=== PATIENT | male | born 1955 | race Caucasian/White ===

== ENCOUNTER → 2020-02-02 13:18 | Outpatient (CLI) | payer MEDICARE, SELFPAY ==
[2020-02-02 14:56] LABS: Chol/HDL Ratio 4.6 (1-3.5); Cholesterol 233 mg/dl (140-200); HDL Cholesterol 51 mg/dl (40-60); Triglycerides 322 mg/dl (30-150); VLDL Cholesterol 64 mg/dL (0-40)
[2020-02-02 15:07] LABS: Direct LDL Cholesterol 134.67 mg/dL (100-129)
== END ==
PROVIDERS: Visit Provider Family Medicine
DX: I25.10 Atherosclerotic heart disease of native coronary artery without angina pectoris (principal); Z98.61 Coronary angioplasty status
CPT/HCPCS: 80061

== ENCOUNTER → 2020-06-07 18:46 | Outpatient (CLI) | payer MEDICARE, SELFPAY ==
[2020-06-07 19:05] LABS: Basophils # 0.1 K/mm3 (0-0.2); Basophils % 0.8 % (0.1-2.0); Eosinophils # 0.2 K/mm3 (0.0-0.4); Eosinophils % 2.6 % (0.1-12.0); Hematocrit 42.6 % (42.0-52.0); Hemoglobin 13.5 g/dL (14.1-18.0); Lymphocytes % 23.5 % (10-50); Mean Corpuscular HGB Conc 31.7 g/dL (31.8-35.4); Mean Corpuscular Hemoglobin 28.7 pg (27.0-31.2); Mean Corpuscular Volume 90.4 fl (80-94); Mean Platelet Volume 9.2 fl (7.4-10.4); Monocytes # 0.6 K/mm3 (0.1-1.0); Monocytes % 7.2 % (1.7-9.3); Neutrophils # 5.6 K/mm3 (1.8-7.8); Neutrophils % 65.9 % (37.0-80.0); Platelet Count 217 K/mm3 (142-424); Red Blood Count 4.71 M/mm3 (4.60-6.20); Red Cell Distribution Width 14.4 % (11.5-17.5); White Blood Count 8.4 K/mm3 (4.8-10.8)
[2020-06-07 19:19] LABS: Alanine Aminotransferase 58 U/L (12-78); Albumin Level 4.4 g/dl (3.5-5.0); Albumin/Globulin Ratio 1.3 (1.1-1.8); Alkaline Phosphatase 74 U/L (38-126); Anion Gap 13.2 mEq/L (5-15); Aspartate Amino Transferase 61 U/L (17-59); Bilirubin,Total 0.6 mg/dl (0.2-1.3); Blood Urea Nitrogen 8 mg/dl (9-20); Calcium 9.9 mg/dl (8.4-10.2); Carbon Dioxide 29 mmol/L (22.0-30.0); Chloride 101 mmol/L (98-107); Estimated Glomerular Filt Rate 113 ml/min (>60); GFR (African American) 137 ML/MIN (>60); Globulin 3.4 g/dL (1.3-3.2); Glucose 219 mg/dl (74-100); Lipase 237 U/L (23-300); Potassium 4.2 mmoL/L (3.5-5.1); Sodium 139 mmol/L (136-145); Total Protein,Serum 7.8 g/dl (6.3-8.2)
[2020-06-07 19:24] LABS: Hemoglobin A1C 7.9 % (4.0-6.0)
== END ==
PROVIDERS: Visit Provider Family Medicine
DX: R10.30 Lower abdominal pain, unspecified (principal); E11.9 Type 2 diabetes mellitus without complications; Z79.84 Long term (current) use of oral hypoglycemic drugs
CPT/HCPCS: 80053; 83036; 83690; 85025

== ENCOUNTER → 2020-06-20 14:36 | Outpatient (CLI) | payer MEDICARE, SELFPAY ==
--- NOTE | 2020-06-20 14:36 | CT_ITS ---
PROCEDURE: CT ABDOMEN PELVIS WO CON CLINICAL INDICATION: Abd pain around belly button for about 3 weeks diarrhea Hx of hernia Bladder and colon sx COMPARISON: No exams were available for comparison TECHNIQUE: Axial images obtained with sagittal and coronal reformats. All CT scans at the facility use one or more dose reduction, viz: automated exposure control, ma/kV adjustment per patient size (including targeted exams where dose is matched to indication, i.e. head), or iterative reconstruction technique. FINDINGS: LOWER THORAX: There is some atelectatic or fibrotic changes in the lingula. Coronary artery calcifications and/or stents are noted. ABDOMEN & PELVIS: There is mild hepatomegaly. A 2.9 cm area slight increased density is present within the right hepatic lobe just to the right of a 2 cm hepatic cyst. The hyperdensity is superior to the gallbladder fossa. The spleen, adrenal glands, and pancreas have an unremarkable appearance. No renal or ureteral calculi. No evidence of appendicitis. No intestinal obstruction or free air. There is colonic diverticulosis but no evidence of diverticulitis. Fecal stasis. Postsurgical changes are present involving the anterior abdominal wall at the umbilical region There are degenerative changes of the lumbar spine and hips with prominent bony hypertrophy at the acetabular rims laterally on both sides IMPRESSION: 1. No acute finding. 2. Mild hepatomegaly with questionable 2.9 cm hyperdense lesion of the liver just lateral to a 2 cm liver cyst. Repeat exam with hemangioma protocol without and with contrast or MRI with hemangioma protocol may further characterize. 3. Diastasis of the abdominal wall at the umbilical region consistent with postsurgical changes. 4. Colonic diverticulosis but no evidence of diverticulitis. There is a mild amount of retained colonic feces. Dictated by: Goldy Cha MD 06/21/2020 14:04 Goldy Cha MD in [place] 06/21/2020 14:04
== END ==
PROVIDERS: PCP Family Medicine; Visit Provider Family Medicine
DX: R10.30 Lower abdominal pain, unspecified (principal)
CPT/HCPCS: 74176

== ENCOUNTER → 2020-07-01 10:29 | Outpatient (CLI) | payer MEDICARE, SELFPAY ==
[2020-07-01 11:19] LABS: Chloride 103 mmol/L (98-107); Sodium 140 mmol/L (136-145)
[2020-07-01 11:20] LABS: Potassium 4.9 mmoL/L (3.5-5.1)
[2020-07-01 11:23] LABS: Anion Gap 14.9 mEq/L (5-15); Blood Urea Nitrogen 13 mg/dl (9-20); Calcium 10.4 mg/dl (8.4-10.2); Carbon Dioxide 27 mmol/L (22.0-30.0); Estimated Glomerular Filt Rate 97 ml/min (>60); GFR (African American) 117 ML/MIN (>60); Glucose 199 mg/dl (74-100)
== END ==
PROVIDERS: Visit Provider Family Medicine
DX: Z01.818 Encounter for other preprocedural examination (principal)
CPT/HCPCS: 36415; 80048

== ENCOUNTER → 2020-07-03 09:49 | Outpatient (CLI) | payer MEDICARE, SELFPAY ==
--- NOTE | 2020-07-03 09:49 | CT_ITS ---
PROCEDURE: CT ABDOMEN WO/W CON CLINICAL HISTORY: hemangioma protocol Follow-up liver lesion COMPARISON: CT CT ABDOMEN PELVIS WO CON from 06/20/2020 TECHNIQUE: Axial images obtained with sagittal and coronal reformats. All CT scans at the facility use one or more dose reduction, viz: automated exposure control, ma/kV adjustment per patient size (including targeted exams where dose is matched to indication, i.e. head), or iterative reconstruction technique. FINDINGS: Unenhanced images once again demonstrates a 3 cm area of increased density in the right hepatic lobe adjacent to the gallbladder fossa. Does not demonstrate any contrast enhancement. Is similar but smaller area of increased density is present in the right hepatic lobe more inferiorly adjacent to the gallbladder fossa. Incidentally noted is a 4 mm hypodensity in the left hepatic lobe which may be due to a hepatic cysts with an additional cystic lesion in the left hepatic lobe at the gallbladder fossa at 2 cm and the right hepatic lobe anteriorly at 4 mm. The gallbladder is distended. A 4 mm hyperdensity is present along the posterior aspect of the gallbladder and could be due to small stone. There is a small exophytic left renal cyst at 1.6 cm. Degenerative changes are present in the lumbar spine IMPRESSION: 1. No change in the hyperdensity in the right hepatic lobe possibly due to focal fatty sparing. This does not appear to represent a hemangioma or an enhancing lesion. Consider six-month follow-up without contrast to confirm stability. 2. Hepatic cysts and left renal cysts 3. Distended gallbladder with possible gallstone Dictated by: Goldy Cha MD 07/04/2020 12:24 Goldy Cha MD in [facility] 07/04/2020 12:24
== END ==
PROVIDERS: PCP Family Medicine; Visit Provider Family Medicine
DX: K76.9 Liver disease, unspecified (principal)
CPT/HCPCS: 74170; Q9967

== ENCOUNTER → 2020-07-17 14:11 | Outpatient (CLI) | payer MEDICARE, SELFPAY ==
[2020-07-17 15:11] LABS: Alanine Aminotransferase 59 U/L (12-78); Albumin Level 4.9 g/dl (3.5-5.0); Alkaline Phosphatase 85 U/L (38-126); Aspartate Amino Transferase 59 U/L (17-59); Bilirubin,Indirect 0.6 mg/dL (0.0-0.9); Bilirubin,Total 0.6 mg/dl (0.2-1.3); Bilirubin,Unconjugated 0.6 mg/dL (0.0-1.1); Total Protein,Serum 8.3 g/dl (6.3-8.2)
== END ==
PROVIDERS: Visit Provider Surgery
DX: K82.9 Disease of gallbladder, unspecified (principal)
CPT/HCPCS: 36415; 80076

== ENCOUNTER → 2020-07-23 07:27 | Outpatient (CLI) | payer MEDICARE, SELFPAY ==
--- NOTE | 2020-07-23 07:28 | US_ITS ---
PROCEDURE: US GALLBLADDER CLINICAL INDICATION: RUQ pain COMPARISON: No exams were available for comparison FINDINGS: Limited study due to patient's body habitus. Pancreas: The visualized pancreas is unremarkable. The tail is partially obscured. Liver: Diffuse fatty infiltration of the liver is noted. There are focal anechoic lesions noted in the liver measuring 2 centimeters. There is focal ill-defined hypoechogenicity noted adjacent to the gallbladder fossa, expected location for focal fatty sparing. There is appropriate direction of blood flow within a non dilated portal vein. Right kidney: Unremarkable appearing. No hydronephrosis. Gallbladder: Gallbladder distension is noted. Significant amount of sludge is noted within the gallbladder. There is a possible calculus noted in the dependent portion of the gallbladder. The gallbladder wall is within normal limits measuring 0.3 centimeters. No pericholecystic fluid. The CBD measures 0.4 centimeters. No intrahepatic ductal dilation. IMPRESSION: Limited study due to patient's body habitus. Distended gallbladder with sludge and possible calculus. No evidence of significant gallbladder wall thickening or pericholecystic fluid to suggest acute cholecystitis. If high clinical suspicion of cholecystitis, HIDA scan should be considered for further evaluation. Hepatic steatosis. Hepatic cysts measuring up to 2 centimeters. Dictated by: Suri Nguyễn 07/23/2020 13:01 Suri Nguyễn in [facility] 07/23/2020 13:01
== END ==
PROVIDERS: PCP Family Medicine; Visit Provider Surgery
DX: R10.11 Right upper quadrant pain (principal)
CPT/HCPCS: 76705

== ENCOUNTER → 2020-10-14 13:39 | Outpatient (POV) | payer MEDICARE, SELFPAY | PROVIDERS: Visit Provider Nurse Practitioner Family | DX: Z00.00 Encounter for general adult medical examination without abnormal findings (principal) ==

== ENCOUNTER → 2021-06-13 16:00 | Outpatient (CLI) | payer MEDICARE, SELFPAY ==
[2021-06-13 13:39] LABS: Hemoglobin A1C 9.7 % (4.0-6.0)
[2021-06-13 14:06] LABS: Thyroid Stimulating Hormone 0.17 uIU/mL (0.465-4.68)
== END ==
PROVIDERS: Visit Provider Family Medicine
DX: E03.9 Hypothyroidism, unspecified (principal); E11.59 Type 2 diabetes mellitus with other circulatory complications; Z79.84 Long term (current) use of oral hypoglycemic drugs
CPT/HCPCS: 83036; 84443

== ENCOUNTER → 2022-07-13 23:16 | Outpatient (CLI) | payer MEDICARE, SELFPAY ==
[2022-07-13 18:18] LABS: Chloride 99 mmol/L (98-107); Potassium 4.7 mmoL/L (3.5-5.1); Sodium 137 mmol/L (136-145)
[2022-07-13 18:20] LABS: Alanine Aminotransferase 51 U/L (12-78); Aspartate Amino Transferase 62 U/L (17-59); Blood Urea Nitrogen 14 mg/dl (9-20); Estimated Glomerular Filt Rate 75 ml/min (>60); GFR (African American) 90 ML/MIN (>60)
[2022-07-13 18:21] LABS: Albumin Level 5.1 g/dl (3.5-5.0); Albumin/Globulin Ratio 1.3 (1.1-1.8); Alkaline Phosphatase 86 U/L (38-126); Anion Gap 19.7 mEq/L (5-15); Bilirubin,Total 1.2 mg/dl (0.2-1.3); Calcium 9.6 mg/dl (8.4-10.2); Carbon Dioxide 23 mmol/L (22.0-30.0); Glucose 139 mg/dl (74-100); Total Protein,Serum 9.1 g/dl (6.3-8.2)
[2022-07-13 18:24] LABS: Basophils # 0.1 K/mm3 (0-0.2); Basophils % 1.1 % (0.1-2.0); Eosinophils # 0.3 K/mm3 (0.0-0.4); Eosinophils % 2.6 % (0.1-12.0); Hematocrit 51.1 % (42.0-52.0); Hemoglobin 16.5 g/dL (14.1-18.0); Lymphocytes # 2.8 K/mm3 (0.7-4.5); Lymphocytes % 25.9 % (10-50); Mean Corpuscular HGB Conc 32.3 g/dL (31.8-35.4); Mean Corpuscular Hemoglobin 29.3 pg (27.0-31.2); Mean Corpuscular Volume 90.8 fl (80-94); Mean Platelet Volume 9.2 fl (7.4-10.4); Monocytes # 0.7 K/mm3 (0.1-1.0); Monocytes % 6.8 % (1.7-9.3); Neutrophils % 63.6 % (37.0-80.0); Platelet Count 297 K/mm3 (142-424); Red Blood Count 5.63 M/mm3 (4.60-6.20); Red Cell Distribution Width 14.6 % (11.5-17.5)
== END ==
PROVIDERS: PCP Nurse Practitioner Family; Visit Provider Nurse Practitioner Family
DX: R10.9 Unspecified abdominal pain (principal)
CPT/HCPCS: 80053; 85025; 87086

== ENCOUNTER → 2022-07-14 10:33 | Outpatient (CLI) | payer MEDICARE, SELFPAY ==
--- NOTE | 2022-07-14 10:41 | CT_ITS ---
FINAL REPORT TECHNIQUE: Axial images through the abdomen and pelvis were performed without contrast. This study was performed with techniques to keep radiation doses as low as reasonably achievable, (ALARA). Individualized dose reduction techniques using automated exposure control or adjustment of mA and/or kV according to the patient's size were employed. CLINICAL HISTORY: abdominal pain COMPARISON: May 2020 FINDINGS: ABDOMEN: There is scarring in the lung bases. The heart size is normal. The liver has a nodular peripheral margin consistent with cirrhosis. There is marked distension of the gallbladder. There are densities in the dependent portion of the gallbladder that may represent small gallstones. The spleen is not significantly enlarged. No adrenal mass is identified. The aorta is normal in caliber. There is no significant free fluid or adenopathy. There is no nephrolithiasis. There is no hydronephrosis. There is mild perinephric stranding that is probably postinflammatory. There is extensive descending colon diverticulosis. There is no evidence of diverticulitis. PELVIS: The appendix is not identified. The urinary bladder is unremarkable. There is no significant free fluid or adenopathy. IMPRESSION: Cirrhosis. Markedly distended gallbladder with gallstones. In the appropriate clinical setting acute cholecystitis cannot be excluded. Reviewed, Interpreted and Dictated by Yair Wilder MD Transcribed by Elfego Borrero Authenticated and . [facility]
== END ==
PROVIDERS: PCP Family Medicine; Visit Provider Nurse Practitioner Family
DX: R10.9 Unspecified abdominal pain (principal)
CPT/HCPCS: 74176

== ENCOUNTER → 2022-07-15 15:09 | Outpatient (CLI) | payer MEDICARE, SELFPAY ==
[2022-07-15 15:54] LABS: INR 1.03 (0.9-1.1); Prothrombin Time 11.1 seconds (10.1-12.5)
[2022-07-15 16:25] LABS: Amylase 80 U/L (30-110); Lipase 237 U/L (23-300)
== END ==
PROVIDERS: PCP Family Medicine; Visit Provider Surgery
DX: R10.9 Unspecified abdominal pain (principal); I25.10 Atherosclerotic heart disease of native coronary artery without angina pectoris; Z98.61 Coronary angioplasty status
CPT/HCPCS: 36415; 82150; 83690; 85610

== ENCOUNTER → 2022-07-16 06:08 | Outpatient (CLI) | payer MEDICARE, SELFPAY ==
--- NOTE | 2022-07-16 | CA_ITS ---
APPROVED REPORT Exam: Pharmacologic Technologist: Jossy Carrera, Ht: 6 ft 0 in Wt: 277 lbs BSA: 2.45 m2 HR: 84 bpm BP: 109/70 mmHg Rhythm: artial rhythm with variable rate Medical History Medical History: Diabetes, HTN, Hyperlipidemia Medications: Lisinopril,,,,, Pravastatin,,,,, Metformin,,,,, Synthroid,,,,, Zetia,,,,, CloPIdogrel,,,,, PaXIL,,,,, JaRDiance,,,,, Metronidazole,,,,, Lancets,,,,, Blood GLUCOSE,,,,, NitrogGLYCERIN,,,,, Cardiac Risk Factors: HTN, Hyperlipidemia, Diabetes (non-insulin) Stress Test Details Test: LEXISCAN HR Resting HR: 69 bpm Max Heart Rate (APMHR): 153.049628 bpm Max HR Achieved: 94 bpm Target HR (85% APMHR): 130.318207 bpm % of APMHR: 61.44 Recovery HR: 79 bpm BP Resting BP: 109/70 mmHg Max BP: 116/67 mmHg Recovery BP: 116.0/67.0 mmHg ECG Resting ECG: artial rhythm with variable rate Clinical Exercise duration: 04:00 min Highest Stage Achieved: Exercise capacity: 1.0 METs Stress ECG Conclusion During lexiscan pt experinced mild RIOS, no CP noted. Rare PVC noted. No significant ST changes. Undetermined artial rhythm, otherwise unremarkable lexiscan stress. Myoview images reported separately. Test Summary REST . . . . . . . Sitting REST 04:57 . . 69 . 109/ 70 . . Stage 1 01:00 . . 87 . . . . Stage 2 01:00 . . 78 . 96/ 57 . . Stage 3 01:00 . . 81 . 107/ 61 . . Stage 4 01:00 . . 87 . 112/ 61 . Stop exercise at 04:00 RECOVERY 01:00 . . 90 . . . . RECOVERY 02:00 . . 88 . 116/ 67 . . RECOVERY 03:00 . . 84 . 112/ 62 . . RECOVERY 03:30 . . 87 . 112/ 62 . . Electronically signed by : Jameson Chin MD 07/17/2022 10:20:07
--- NOTE | 2022-07-16 | CA_ITS ---
APPROVED REPORT EXAM: Comprehensive 2D, Doppler, and color-flow Echocardiogram Infrastructure Analyst: Gali Genao, RCS, RVS Ht: 6 ft 0 in Wt: 277lbs BSA: 2.45 BP: 111/72 mmHg Indications: CAD, Pre-op 2D Dimensions IVSd 0.94 cm LVEF (Visual) 55.00 % PWd 1.03 cm LA Volume 63.60 mL LVDd 4.51 cm LA Volume Index 25.30 mL/m2 (M/F) 16-34 LVDs 3.50 cm Aortic Root 3.76 cm Left Atrium 4.40 cm LVOT 2.21 cm (M/F) 1.5-2.5 M-Mode Dimensions RVDd 3.39 cm (0.9-2.6) LA Diam 4.85 cm (1.9-4.0) LVDd 4.50 cm (3.5-5.7) Ao Diam 3.67 cm (2.0-3.7) LVDs 2.54 cm (3.5-5.7) IVSd 0.85 cm (0.6-1.1) PWd 0.94 cm (0.6-1.1) EF (Teich) 74.90% EPSs 0.45 cm FS 43.60% EDV (Teich) 92.40 mL TAPSE 2.10 (<1.7) ESV (Teich) 23.20 mL LV Diastology E Decel Time 230.00 (160-240 msec) E/A Ratio 1.23 MED E' 6.20 (< 7 cm/sec) MED A' 6.90 cm/s E'/MED E' Ratio 10.65 (>14) LAT E' 8.10 (<10 cm/sec) LAT A' 8.60 cm/s E/LAT E' Ratio 8.15 (>14) Aortic Valve LVOT Max 80.00 (70-110 cm/s) LVOT VTI 18.96 cm AoV Peak Joshua. 91.00 (50-130 cm/s) AO Peak GR. 3.30 mmHg AO Mean GR. 1.60 (<5 mmHg) AO VTI 18.01 (18-25 cm) JD (VTI) 4.04 (2.5-4.5 cm2) Mitral Valve MV A Velocity 54.00 (40-130 cm/s) E/A Ratio 1.23 MV Decel. Time 230.00 (160-240 ms) Pulmonary Valve PV Peak Velocity 87.00 (50-150 cm/s) Tricuspid Valve TR P. Velocity 259.00 cm/s RAP Estimate 10.00 mmHg RVSP 36.80 mmHg Left Ventricle Left atrium is mildly enlarged, left ventricle is normal size mild concentric left ventricular hypertrophy, estimated ejection fraction 55% with no regional wall motion abnormality, grade 1 diastolic dysfunction seen without tissue Doppler evidence of late left atrial pressure. Right Ventricle Right atrium and right ventricular mildly enlarged with normal contractility. Aortic Valve Aortic valve is minimally thickened and fibrosed there is no aortic stenosis or aortic insufficiency. Mitral Valve Mitral valve has mitral valve calcification, leaflets are minimally thickened, there is no mitral stenosis, there is trace mitral regurgitation. Tricuspid Valve Tricuspid valve grossly normal, there is trace tricuspid regurgitation, tricuspid regurgitation jet velocity is inadequate for calculation of the right ventricular systolic pressure. Pulmonic Valve Pulmonic valve is poorly visualized. Great Vessels Aortic root is normal size. Pericardium No significant pericardial effusion noted. Inferior vena cava is poorly visualized. Conclusion 1. Mildly enlarged left atrium, normal left ventricular size, mild concentric left ventricular hypertrophy, estimated ejection fraction 55% with no regional wall motion abnormality, grade 1 diastolic dysfunction seen without tissue Doppler evidence of late left atrial pressure. 2. Mildly enlarged right ventricle with normal contractility. 3. Trace mitral and tricuspid regurgitation. 4. No significant pericardial effusion noted. 5. Inferior vena cava is poorly visualized. Electronically signed by : Jameson Chin MD 07/17/2022 17:06:04
--- NOTE | 2022-07-16 06:58 | NM_ITS ---
APPROVED REPORT Exam: Nuclear Stress Test Indication: CAD..PRE-OP CLEARANCE Patient Location: Outpatient Stress Tech: Jossy PITTS Tech:Iliana Castillo JULIANNE RT(R)(N) Ht: 6 ft 0 in Wt: 279 lbs HR: 69 bpm BP: 109/70 mmHg BSA: 2.45 m2 TID: 1.20 History: CAD..PRE-OP CLEARANCE Procedure: Patient received 0.4 mg of intravenous Lexiscan, resting heart rate 69 bpm, resting blood pressure 109/70 mmHg, with Lexiscan maximum heart rate achieved was 94 bpm which is Less than 85 % of the maximum predicted heart rate and blood pressure was 116/67 mmHg. With Lexiscan, patient denied any complaint of chest pain. Electrocardiogram Resting electrocardiogram shows atrial rhythm, with Lexiscan there is less than 1.[address] segment depression noted from the baseline EKG. The EKG portion of the Lexiscan is nondiagnostic. Cardiac Stress and Resting SPECT Images: Cardiac Stress and Resting SPECT images were obtained using technetium 99m Myoview 30.41 mCi stress and 10.22 mCi at rest. Gated SPECT analysis of segmental wall motion and calculation of the ejection fraction also done. Prone images were also obtained. Cardiac stress and rest respectively show uniform myocardial activity without segmental perfusion abnormality, computer derived ejection fraction is 61% with no regional wall motion abnormality, right ventricle is normal size and contractility. Conclusion: 1. The EKG portion of the Lexiscan is nondiagnostic. 2. No scintigraphic evidence of reversible ischemia seen, computer derived ejection fraction is 61% with no regional wall motion abnormality, right ventricle is normal size and contractility. 3. Normal Lexiscan Myoview study. Electronically signed by : Jameson Chin MD 07/17/2022 10:25:48
== END ==
LOC: RAD 06:09
PROVIDERS: PCP Family Medicine; Visit Provider Physician Assistant
DX: I25.10 Atherosclerotic heart disease of native coronary artery without angina pectoris (principal)
CPT/HCPCS: 78452; 93017; 93306; A9502; J2785

== ENCOUNTER 2022-07-20 06:01 | Day surgery (SDC) | payer MEDICARE, SELFPAY ==
--- NOTE | 2022-07-16 16:31 | SUR.PREOP ---
Attempted to contact pt for pre op phone call. No answer, message left w/ call back #.
[2022-07-16 16:50] VITALS: BMI 37.8
[2022-07-20] VITALS (12 sets, daily range): BP systolic 103–148; BP diastolic 51–83; PULSE 88–106; RESP 12–18; TEMP 36.3–43; O2SAT 93–98
[2022-07-20 09:40] LABS: POC Glucose,Bedside 137 (70-110)
--- NOTE | 2022-07-20 10:04 | P.PN_ITS ---
[facility] Disclaimer: The information contained in this section may have been updated after the patient was seen, as this information can be updated by other users. Medical History Abnormal electrocardiogram [ECG] [EKG] Coronary arteriosclerosis after percutaneous transluminal coronary angioplasty (PTCA) stents deployed x 5 Dr Page Encounter for pre-operative cardiovascular clearance Surgical History H/O colonoscopy H/O heart artery stent H/O partial resection of colon H/O total thyroidectomy History of partial colectomy Hx of cardiac cath Family History Other Family history of myocardial infarction in first degree male relative Social History (Updated 07/20/22 @ 09:23 by Marilee Conn RN) Smoking Status: Former smoker years smoked: 30 how long ago did patient quit smoking: QUIT 20 YEARS AGO alcohol intake: current substance use type: denies use current occupational status: retired Travel in the last 8 weeks: None caffeine: Yes [facility] Anesthesia Checklist Patient Identification Patient Identification: Arm Band and Verbal (Name & ) Structural Data Admitted From: Home Planned Operative Procedure/s: Laparascopic Cholecystectomy Consent for Planned Operative Procedure(s) Verified: Yes Verified Documents: Surgical Consent NPO Status Verified Time NPO: 00:00 Chart Verification Results Verified: CBC and BMP Additional verifications Anesthesia Reactions: No Hx Blood Transfusions: No Blood Transfusion Reaction: No Airway Assessment C-Spine Mobility Assessed: Yes TMJ Mobility Assessed: Yes Dentition: Partials Anesthesia Plan ASA Class: III Anesthesia Type: General
--- NOTE | 2022-07-20 12:55 | P.PNANES_ITS ---
[facility] Anesthesia Record Part I Anesthesia Record I Intake, IV Amount: 1,600 Estimated blood loss (mL): 50 Urine output (mL): 0 Blood Pressure: 103/51 SaO2: 95 Pulse Rate: 106 Respiratory Rate: 14 Temperature: 98.9 F Patient is:: Drowsy, Oral/Nasal airway and Stable Stable to PACU at:: 12:55
--- NOTE | 2022-07-20 12:56 | P.OP_ITS ---
Date of procedure: 07/20/22 Pre-op Diagnosis:: Symptomatic gallstones Post-op Diagnosis:: Same Cirrhosis of liver Procedure performed:: Laparoscopic cholecystectomy Laparoscopic liver biopsy Surgeon:: Paul Mejia MD Anesthesia: ARIANA Estimated blood loss (mL): 75 Operative findings:: He had significant cirrhosis of the liver. Gallbladder was distended without thickening of the wall. Gallbladder was partially intrahepatic. There were multiple branching veins around the gallbladder. Operative note:: Patient was taken the operating room. He was given preoperative intravenous antibiotics. In the operating room he was placed in a supine position. General anesthesia was induced via endotracheal tube. Abdomen was prepped and draped in the standard surgical fashion. Due to the fact that the patient had previous left paramedian laparotomy for his diverticulitis 5 mm optical trocar was inserted carefully in the left subcostal region. CO2 pneumoperitoneum was achieved to 15 mmHg. There were omental adhesions in the lower abdomen inferior to the umbilicus. Supraumbilical incision was made. 11 mm trocar was inserted at the supraumbilical incision. Patient was positioned in reverse Trendelenburg and left side down. He was noted to have significant cirrhosis of the liver. Gallbladder was somewhat distended. It did not however appear to be thickened. A couple of 5 mm trocars were inserted in the right upper abdomen. 11 mm trocar was inserted in the epigastrium. Gallbladder was partially aspirated using the laparoscopic needle aspirator as it was somewhat distended and tense. Gallbladder was then grasped retracted anteriorly. There were multiple branching vessels overlying the gallbladder and adjacent to this. Gallbladder was actually somewhat friable. There was some unavoidable spillage of bile with retraction. Ultimately rent in the gallbladder was closed with a 0 PDS suture. Very prolonged dissection was carried out. This was rather difficult due to the severe cirrhosis. Ultimately the cystic duct was identified. It was multiply clipped and sharply divided. Cystic artery was carefully coagulated with GEMMA ultrasonic harmonic kendall and divided. Some of these branching vessels were divided as they were adherent to the gallbladder. Gallbladder was dissected free from the liver in a retrograde fashion using GEMMA ultrasonic harmonic kendall. Gallbladder was appreciably partially intrahepatic which made the dissection process rather difficult. Gallbladder was placed within an Endo Catch retrieval device and removed from the peritoneal cavity via the umbilical trocar site. A small piece of liver was then excised overlying the gallbladder fossa using GEMMA ultrasonic harmonic kendall. It was sent off as liver biopsy. Electrocautery was then used for hemostasis on the gallbladder fossa where there was some minor oozing and at the liver biopsy site. Powdered Surgicel was then deployed in the gallbladder fossa to assure hemostasis. This was done after thorough irrigation and suctioning. There appeared to be good hemostasis. Trocars were then removed as CO2 pneumoperitoneum was evacuated. Fascia at the supraumbilical incision was closed with a couple of 0 Vicryl sutures. E pigastric trocar site was closed with a 0 Vicryl suture. Local anesthetic was infiltrated. All skin incisions were closed with 4-0 Monocryl in a subcuticular fashion. Dermabond and dressings were applied. Condition: stable Disposition: PACU Complications:: None immediately apparent
--- NOTE | 2022-07-20 17:03 | EXP.ANES.II ---
[facility] Anesthesia Record Part II Anesthesia Record Part II Discharge Time: 13:35 Destination: Surgical Day Care (OP Surgery) PACU nurse assessment reviewed?: Yes Patient Condition:: Good Anesthesia Complications:: None Swallowing reflex intact?: Yes Cyanosis?: No Blood Pressure: 144/79 Pulse Rate: 91 Temperature: 97.5 F Mental Status: Alert & Oriented Pain level:: 0 Nausea and/or vomitting:: None Intake, IV Amount: 0
== END 2022-07-20 14:13 | disposition home or self-care (01) ==
PROVIDERS: PCP Family Medicine; Visit Provider Surgery
PROC: 0FT44ZZ Resection of Gallbladder, Percutaneous Endoscopic Approach (ICD-10-PCS; CPT 47562; principal; 2022-07-20 08:45)
DX: K80.10 Calculus of gallbladder with chronic cholecystitis without obstruction (principal); K74.60 Unspecified cirrhosis of liver; K76.0 Fatty (change of) liver, not elsewhere classified; Z79.899 Other long term (current) drug therapy; E11.9 Type 2 diabetes mellitus without complications
CPT/HCPCS: 47379; 47562; 82962; 88304; 88307; 88313; 96374; J2405

== ENCOUNTER 2022-08-05 11:22 | Emergency (ER) | payer MEDICARE, SELFPAY ==
[2022-08-05] VITALS (7 sets, daily range): BP systolic 109–131; BP diastolic 61–76; PULSE 60–84; RESP 16–20; TEMP 36.9–37; O2SAT 94–97; BMI 38.0
[2022-08-05 12:06] LABS: Microscopic, Urine URINE MICROSCOPIC (MICROSCOPIC)
[2022-08-05 12:13] LABS: Basophils # 0.1 K/mm3 (0-0.2); Basophils % 0.8 % (0.1-2.0); Eosinophils # 0.4 K/mm3 (0.0-0.4); Eosinophils % 3.6 % (0.1-12.0); Hematocrit 45.6 % (42.0-52.0); Hemoglobin 14.9 g/dL (14.1-18.0); Lymphocytes # 2.6 K/mm3 (0.7-4.5); Lymphocytes % 24.7 % (10-50); Mean Corpuscular HGB Conc 32.6 g/dL (31.8-35.4); Mean Corpuscular Hemoglobin 28.5 pg (27.0-31.2); Mean Corpuscular Volume 87.2 fl (80-94); Mean Platelet Volume 8.1 fl (7.4-10.4); Monocytes # 0.6 K/mm3 (0.1-1.0); Monocytes % 5.8 % (1.7-9.3); Neutrophils # 6.8 K/mm3 (1.8-7.8); Neutrophils % 65.2 % (37.0-80.0); Platelet Count 365 K/mm3 (142-424); Red Blood Count 5.23 M/mm3 (4.60-6.20); Red Cell Distribution Width 14.5 % (11.5-17.5); White Blood Count 10.5 K/mm3 (4.8-10.8)
[2022-08-05 12:14] LABS: Appearance,Urine CLEAR (Clear); Bilirubin,Urine Negative (Negative); Blood, Urine Negative (Negative); Color,Urine YELLOW (Yellow); Glucose,Urine (UA) 3+ (Negative); Ketones,Urine Negative (Negative); Leukocyte Esterase,Urine Negative (Negative); Nitrate,Urine Negative (Negative); Protein,Urine 1+ (Negative); Urobilinogen,Urine 0.2 EU/dl (0.2)
[2022-08-05 12:15] LABS: Chloride 101 mmol/L (98-107); Potassium 4.7 mmoL/L (3.5-5.1); Sodium 136 mmol/L (136-145)
[2022-08-05 12:17] LABS: Alanine Aminotransferase 36 U/L (12-78); Aspartate Amino Transferase 46 U/L (17-59); Blood Urea Nitrogen 12 mg/dl (9-20); Creatinine Clearance Estimated 129 mL/min (50-200); Estimated Glomerular Filt Rate 96 ml/min (>60); GFR (African American) 117 ML/MIN (>60)
[2022-08-05 12:18] LABS: Albumin Level 4.7 g/dl (3.5-5.0); Albumin/Globulin Ratio 1.1 (1.1-1.8); Alkaline Phosphatase 103 U/L (38-126); Anion Gap 16.7 mEq/L (5-15); Bilirubin,Total 0.7 mg/dl (0.2-1.3); Calcium 9.6 mg/dl (8.4-10.2); Carbon Dioxide 23 mmol/L (22.0-30.0); Globulin 4.3 g/dL (1.3-3.2); Glucose 148 mg/dl (74-100)
--- NOTE | 2022-08-05 12:18 | CT_ITS ---
FINAL REPORT TECHNIQUE: Postcontrast axial images through the abdomen and pelvis were performed. This study was performed with techniques to keep radiation doses as low as reasonably achievable, (ALARA). Individualized dose reduction techniques using automated exposure control or adjustment of mA and/or kV according to the patient's size were employed. CLINICAL HISTORY: low abd pain, previous diverticulitis s/p resect COMPARISON: 07/14/2022 FINDINGS: Abdomen: There is mild bibasilar atelectasis. The liver has a nodular contour consistent with cirrhosis. There is a small cyst in the lateral right liver dome. There is a cyst in the posterior aspect of the medial segment of the left hepatic lobe. There has been interval cholecystectomy. There is stranding and a small amount a fluid in the gallbladder fossa, may represent hematoma, biloma, or abscess. No drainable fluid collection is identified. There is no biliary ductal dilatation. The spleen is unremarkable. The adrenals are normal. The pancreas is unremarkable. Small renal cysts are identified. The aorta is normal in caliber. No free fluid or adenopathy is identified. No findings for mechanical bowel obstruction are identified. Pelvis: The appendix is unremarkable. There is a small umbilical hernia containing fat. There is sigmoid diverticulosis. The urinary bladder is unremarkable. No free fluid, free air, abscess or adenopathy is identified. IMPRESSION: Interval cholecystectomy with stranding and a small amount of fluid in the gallbladder fossa, may represent hematoma, biloma, or abscess. Findings consistent with cirrhosis. Sigmoid diverticulosis. Reviewed, Interpreted and Dictated by Paul Lai III, MD Transcribed by Kelli Jasmine Authenticated and [facility]
--- NOTE | 2022-08-05 12:21 | HMH.EDGENADL ---
Discharge Plan Disposition Patient Disposition: Home, Self-Care Condition: Fair Chief Complaint: Abdominal Pain Prescriptions Prescriptions: No Action (DME) lancets Misc See Rx Instructions .ROUTE .MEDSUPPLY Qty: 50 Rx Instructions: As directed (DME) blood-glucose meter Kit See Rx Instructions .Route Qty: 1 0RF Rx Instructions: Check glucose ACHS nitroglycerin 0.4 mg tablet, sublingual 0.4 mg SUBLINGUAL Q5-15M PRN (Reason: chest pain) Qty: 20 5RF Rx Instructions: do not exceed 3 doses per episode hydrocodone-acetaminophen 10-325 mg tablet 1 tab PO BID PRN (Reason: pain) Qty: 60 0RF Rx Instructions: 1/2 TO 1 TAB TWICE DAILY PRN (DME) blood-glucose meter Misc See Rx Instructions .ROUTE .MEDSUPPLY Rx Instructions: As directed pravastatin 40 mg tablet 40 mg PO DAILY Rx Instructions: TAKE 1 TABLET DAILY clopidogrel 75 mg tablet See Rx Instructions .ROUTE .COMPLEX Hold Instructions: Resume on 07/22/22. Rx Instructions: TAKE 1 TABLET BY MOUTH ONCE A DAY (DME) blood sugar diagnostic Strip See Rx Instructions .ROUTE .MEDSUPPLY Rx Instructions: As directed paroxetine HCl [Paxil] 20 mg tablet 20 mg PO DAILY metformin 1,000 mg tablet 1,000 mg PO BID Rx Instructions: TAKE 1 TABLET TWICE A DAY levothyroxine [Synthroid] 150 mcg tablet 150 mcg PO DAILY colchicine 0.6 mg tablet See Rx Instructions .ROUTE .COMPLEX Rx Instructions: TAKE 1 TABLET BY MOUTH 2 TIMES A DAY ezetimibe [Zetia] 10 mg tablet 10 mg PO DAILY Jardiance 25 mg tablet 25 mg PO DAILY lisinopril 40 mg tablet 20 mg PO DAILY Rx Instructions: TAKE 1 TABLET DAILY hydrocodone-acetaminophen 5-325 mg Tablet 1 - 2 tab PO Q6H PRN (Reason: Pain) Qty: 21 0RF Referrals Follow up/Referrals: Be Hendricks MD [Primary Care Provider] - See instructions Activity Restrictions/Add. Instructions Additional Instructions/Restrictions: At this time was felt you are safe to be discharged home. If new or worsening symptoms please not hesitate to return to the emergency department. Please follow-up with your family doctor as well as your surgeon within the next 5 to 7 days for continued evaluation. Clinical Impressions Clinical Impression: Abdominal pain, Abdominal fluid collection Instructions Patient Instructions: DI for Acute Abdominal Pain Discharge ED Provider: Willard Humphreys General Adult HPI General Chief complaint: Abdominal Pain Stated complaint: Phys ref, lower abd pain Time Seen by Provider: 08/05/22 12:15 Mode of Arrival: Ambulatory Source of Information: Patient and Relative Limitations: No Limitations Description of Symptoms (Recalled from ER Triage Doc. by RN): pt comes to ed with c/o left lower abdominal pain. pt states that he has had this pain off and on for months. pt had gallbladder removed 07/20/[address] murray. pt states that pain he is having today has not changed since surgery. states it has not gotten better or worse. History of Present Illness HPI narrative: Patient is a 66-year-old male with past medical history of diverticulitis 15 years ago status post colonic resection, colovesical fistula status postsurgical repair, recent diverticulitis status post antibiotic therapy who presents emergency department for evaluation of chronic lower abdominal pain. It has waxed and waned over months since March. Due to worsening pain he presents here for continued evaluation. It is low bilateral abdominal pain, intermittent, worse with palpation. Patient's last bowel movement this morning, still passing flatus, no vomiting. Denies chest pain, acute rashes or arthralgias, denies dysuria. Patient also has past medical history of cardiac stents. Related Data Home Medications Medication Instructions Recorded Confirmed lancets #50 ea 10/10/19 07/28/22 blood sugar diagno
[2022-08-05 12:31] LABS: Lipase 229 U/L (23-300)
[2022-08-05 14:11] LABS: Lactic Acid 1.7 mmol/L (0.7-2.1)
--- NOTE | 2022-08-05 14:51 | PC.NURSE ---
placed call to surgeon manager [employer] is to advise Dr Pelayo of pt
== END 2022-08-05 15:25 | disposition home or self-care (01) ==
PROVIDERS: Emergency Provider Emergency Medicine; PCP Family Medicine
DX: R10.31 Right lower quadrant pain (principal); R10.32 Left lower quadrant pain
CPT/HCPCS: 74177; 80053; 81001; 83605; 83690; 85025; 96360; 96374; 96375; 96376; 99285; J2405; Q9967

== ENCOUNTER 2022-09-10 09:30 | Day surgery (SDC) | payer MEDICARE, SELFPAY ==
[2022-09-03 14:13] VITALS: BMI 37.1
[2022-09-10 10:01] VITALS: BP 130/75; PULSE 62; RESP 18; TEMP 36.3; O2SAT 97
[2022-09-10 10:09] LABS: POC Glucose,Bedside 137 (70-110)
--- NOTE | 2022-09-10 10:35 | EXP.ANES.CKL ---
[facility] Disclaimer: The information contained in this section may have been updated after the patient was seen, as this information can be updated by other users. Medical History Abnormal electrocardiogram [ECG] [EKG] Coronary arteriosclerosis after percutaneous transluminal coronary angioplasty (PTCA) Diabetes Encounter for pre-operative cardiovascular clearance Surgical History H/O colonoscopy H/O heart artery stent H/O partial resection of colon H/O total thyroidectomy History of laparoscopic cholecystectomy History of partial colectomy Hx of cardiac cath Family History Other Family history of myocardial infarction in first degree male relative Social History Smoking Status: Never smoker years smoked: 30 how long ago did patient quit smoking: QUIT 20 YEARS AGO alcohol intake: current substance use type: denies use current occupational status: retired Travel in the last 8 weeks: None household members: spouse housing: house marital status: caffeine: Yes special aravind needs: No do you feel safe at home: Yes victim of physical abuse: No victim of emotional abuse: No victim of sexual abuse: No would you like helpful sources: No [facility] Anesthesia Checklist Patient Identification Patient Identification: Arm Band and Verbal (Name & ) Structural Data Admitted From: Home Planned Operative Procedure/s: Colonoscopy Consent for Planned Operative Procedure(s) Verified: Yes NPO Status Verified Time NPO: 00:00 Additional verifications Anesthesia Reactions: No Hx Blood Transfusions: No Blood Transfusion Reaction: No Airway Assessment C-Spine Mobility Assessed: Yes TMJ Mobility Assessed: Yes Dentition: Dentures-poor fitting Neurological Assessment Level of Consciousness: Awake Hx Seizures: No Numbness or tingling in extremities: No Anesthesia Plan Anesthesia Risk discussed: Yes Anesthesia Plan: Verified ASA Class: III Anesthesia Type: MAC
[2022-09-10 10:42] VITALS: O2SAT 97
--- NOTE | 2022-09-10 10:58 | HMH.SCOPE ---
Procedure: Date: 09/10/22 Patient Date of :: 1955 Procedure Performed:: Diagnostic colonoscopy Indications:: Abdominal pain, constipation, blood in stool Performing Provider:: Chelsea Saldana MD Referring Provider:: Melanie Saldana APRN Sedation:: Propofol Procedure:: After placing the patient in the left lateral decubitus position, the colonoscopy was gently inserted into the rectum and under direct visualization advanced to the cecum which was identified by transillumination in the right lower quadrant, identification of the ileocecal valve, appendiceal orifice, and cecal strap. Color, texture, mucosa, and anatomy of the colon were carefully examined with the scope. Findings:: Anal canal: normal Rectum: normal Sigmoid colon: Resected Descending colon: normal without polyps or inflammatory changes, scattered diverticuli Splenic flexure: normal Transverse colon: normal without polyps or inflammatory changes Hepatic flexure: normal Ascending colon: normal without polyps or inflammatory changes, scattered diverticuli Cecum: normal Terminal ileum: not visualized Impression: Scattered diverticuli otherwise normal colonoscopy Recommendations:: Follow up examination in about FIVE years or so, sooner if clinically indicated. Complications:: None Estimated blood obtained (mL): 0
[2022-09-10 11:01] VITALS: BP 82/54; PULSE 69; RESP 14; TEMP 36.6; O2SAT 92
[2022-09-10 11:11] VITALS: BP 93/59; PULSE 73; RESP 16; O2SAT 94
== END 2022-09-10 11:53 | disposition home or self-care (01) ==
PROVIDERS: PCP Family Medicine; Visit Provider Internal Medicine Gastroenterology
PROC: 0DJD8ZZ Inspection of Lower Intestinal Tract, Via Natural or Artificial Opening Endoscopic (ICD-10-PCS; CPT 45378; principal; 2022-09-10 11:00)
DX: R10.9 Unspecified abdominal pain (principal); K92.1 Melena; Z79.899 Other long term (current) drug therapy; E11.9 Type 2 diabetes mellitus without complications
CPT/HCPCS: 45378; 82962

== ENCOUNTER → 2022-12-18 00:07 | Outpatient (CLI) | payer MEDICARE, SELFPAY ==
[2022-12-17 19:40] LABS: Alanine Aminotransferase 38 U/L (12-78); Albumin Level 4.7 g/dl (3.5-5.0); Albumin/Globulin Ratio 1.2 (1.1-1.8); Alkaline Phosphatase 91 U/L (38-126); Anion Gap 19.6 mEq/L (5-15); Aspartate Amino Transferase 39 U/L (17-59); Bilirubin,Total 0.9 mg/dl (0.2-1.3); Blood Urea Nitrogen 16 mg/dl (9-20); Calcium 9.2 mg/dl (8.4-10.2); Carbon Dioxide 22 mmol/L (22.0-30.0); Chloride 103 mmol/L (98-107); Chol/HDL Ratio 4.4 (1-3.5); Cholesterol 193 mg/dl (140-200); Estimated Glomerular Filt Rate 84 ml/min (>60); GFR (African American) 102 ML/MIN (>60); Globulin 3.8 g/dL (1.3-3.2); Glucose 124 mg/dl (74-100); HDL Cholesterol 44 mg/dl (40-60); Potassium 4.6 mmoL/L (3.5-5.1); Sodium 140 mmol/L (136-145); Total Protein,Serum 8.5 g/dl (6.3-8.2); Triglycerides 205 mg/dl (30-150); VLDL Cholesterol 41 mg/dL (0-40)
[2022-12-17 19:51] LABS: Direct LDL Cholesterol 101.99 mg/dL (100-129)
[2022-12-17 20:11] LABS: Thyroid Stimulating Hormone 1.44 uIU/mL (0.465-4.68)
[2022-12-17 21:27] LABS: Hemoglobin A1C 7.3 % (4.0-6.0)
== END ==
PROVIDERS: PCP Family Medicine; Visit Provider Family Medicine
DX: M48.10 Ankylosing hyperostosis [Forestier], site unspecified (principal); E11.59 Type 2 diabetes mellitus with other circulatory complications; I25.10 Atherosclerotic heart disease of native coronary artery without angina pectoris; Z98.61 Coronary angioplasty status; E03.9 Hypothyroidism, unspecified; Z79.84 Long term (current) use of oral hypoglycemic drugs
CPT/HCPCS: 80053; 80061; 83036; 84443

== ENCOUNTER 2023-04-29 11:00 | Outpatient (CLI) | payer MEDICARE, SELFPAY ==
[2023-04-29 20:19] LABS: Hemoglobin A1C 8.5 % (4.0-6.0)
[2023-04-29 20:27] LABS: Chloride 104 mmol/L (98-107); Potassium 5.1 mmoL/L (3.5-5.1); Sodium 139 mmol/L (136-145)
[2023-04-29 20:30] LABS: Alanine Aminotransferase 52 U/L (12-78); Albumin Level 4.6 g/dl (3.5-5.0); Albumin/Globulin Ratio 1.4 (1.1-1.8); Alkaline Phosphatase 84 U/L (38-126); Anion Gap 16.1 mEq/L (5-15); Aspartate Amino Transferase 57 U/L (17-59); Bilirubin,Total 0.9 mg/dl (0.2-1.3); Blood Urea Nitrogen 10 mg/dl (9-20); Calcium 9.1 mg/dl (8.4-10.2); Carbon Dioxide 24 mmol/L (22.0-30.0); Estimated Glomerular Filt Rate 84 ml/min (>60); GFR (African American) 102 ML/MIN (>60); Globulin 3.3 g/dL (1.3-3.2); Glucose 162 mg/dl (74-100); Total Protein,Serum 7.9 g/dl (6.3-8.2)
[2023-04-29 22:49] LABS: Prostate Specific Ag Screen 0.3 ng/ml (0.0-4.0)
== END 2023-04-30 23:59 | disposition home or self-care (01) ==
PROVIDERS: PCP Family Medicine; Visit Provider Family Medicine
DX: E11.9 Type 2 diabetes mellitus without complications (principal); Z12.5 Encounter for screening for malignant neoplasm of prostate; Z79.84 Long term (current) use of oral hypoglycemic drugs
CPT/HCPCS: 80053; 83036; G0103

== ENCOUNTER 2024-01-03 12:09 | Outpatient (CLI) | payer MEDICARE, SELFPAY ==
[2024-01-03 20:31] LABS: Alanine Aminotransferase 31 U/L (12-78); Albumin Level 4.1 g/dl (3.5-5.0); Albumin/Globulin Ratio 1.2 (1.1-1.8); Alkaline Phosphatase 74 U/L (38-126); Anion Gap 10.9 mEq/L (5-15); Aspartate Amino Transferase 32 U/L (17-59); Bilirubin,Total 0.6 mg/dl (0.2-1.3); Blood Urea Nitrogen 20 mg/dl (9-20); Calcium 9.4 mg/dl (8.4-10.2); Carbon Dioxide 24 mmol/L (22.0-30.0); Chloride 108 mmol/L (98-107); Estimated Glomerular Filt Rate 74 ml/min (>60); GFR (African American) 90 ML/MIN (>60); Globulin 3.5 g/dL (1.3-3.2); Glucose 151 mg/dl (74-100); Potassium 3.9 mmoL/L (3.5-5.1); Sodium 139 mmol/L (136-145); Total Protein,Serum 7.6 g/dl (6.3-8.2)
[2024-01-03 21:02] LABS: Thyroid Stimulating Hormone 2.31 uIU/mL (0.465-4.68)
[2024-01-03 21:06] LABS: Hemoglobin A1C 6.4 % (4.0-6.0)
== END 2024-01-03 23:59 | disposition home or self-care (01) ==
LOC: LAB.DROPOF 01-04 12:09
PROVIDERS: PCP Family Medicine; Visit Provider Family Medicine
DX: E11.9 Type 2 diabetes mellitus without complications (principal); I25.10 Atherosclerotic heart disease of native coronary artery without angina pectoris; E03.9 Hypothyroidism, unspecified; Z79.84 Long term (current) use of oral hypoglycemic drugs
CPT/HCPCS: 80053; 83036; 84443

== ENCOUNTER 2024-05-19 06:57 | Outpatient (CLI) | payer MEDICARE, SELFPAY ==
[2024-05-19 18:38] LABS: Microalbumin/Creatinine Ratio 42.4
[2024-05-19 18:42] LABS: Anion Gap 16.6 mEq/L (5-15); Blood Urea Nitrogen 12 mg/dl (9-20); Carbon Dioxide 21 mmol/L (22.0-30.0); Chloride 103 mmol/L (98-107); Estimated Glomerular Filt Rate 96 ml/min (>60); GFR (African American) 116 ML/MIN (>60); Glucose 121 mg/dl (74-100); Potassium 4.6 mmoL/L (3.5-5.1); Sodium 136 mmol/L (136-145)
[2024-05-19 18:50] LABS: Creatinine,Urine Random 87 mg/dL (Not Estab.)
== END 2024-05-19 23:59 | disposition home or self-care (01) ==
LOC: LAB.DROPOF 05-20 06:57
PROVIDERS: PCP Family Medicine; Visit Provider Family Medicine
DX: E11.59 Type 2 diabetes mellitus with other circulatory complications (principal)
CPT/HCPCS: 80048; 82043; 82570

== ENCOUNTER 2024-11-01 09:56 | Outpatient (CLI) | payer MEDICARE, SELFPAY ==
[2024-11-01 21:29] LABS: Albumin Level 4.5 g/dl (3.5-5.0); Chloride 101 mmol/L (98-107); Sodium 135 mmol/L (136-145)
[2024-11-01 21:30] LABS: Potassium 4.7 mmoL/L (3.5-5.1)
[2024-11-01 21:32] LABS: Alanine Aminotransferase 32 U/L (12-78); Albumin/Globulin Ratio 1.4 (1.1-1.8); Anion Gap 16.7 mEq/L (5-15); Aspartate Amino Transferase 38 U/L (17-59); Blood Urea Nitrogen 14 mg/dl (9-20); Carbon Dioxide 22 mmol/L (22.0-30.0); Creatinine,Serum 0.70 mg/dl (0.66-1.25); Estimated Glomerular Filt Rate 112 ml/min (>60); GFR (African American) 135 ML/MIN (>60); Globulin 3.3 g/dL (1.3-3.2); Total Protein,Serum 7.8 g/dl (6.3-8.2)
[2024-11-01 21:33] LABS: Alkaline Phosphatase 81 U/L (38-126); Bilirubin,Total 0.7 mg/dl (0.2-1.3); Calcium 9.2 mg/dl (8.4-10.2); Cholesterol 193 mg/dl (140-200); Glucose 110 mg/dl (74-100); HDL Cholesterol 48 mg/dl (40-60); Triglycerides 162 mg/dl (30-150)
[2024-11-01 22:07] LABS: Thyroid Stimulating Hormone 2.28 uIU/mL (0.465-4.68)
[2024-11-01 22:19] LABS: Hemoglobin A1C 8.2 % (4.0-6.0)
[2024-11-01 22:23] LABS: Hepatitis C Ab Qual. W/ RFX NEGATIVE (Negative)
--- OUTSIDE RECORDS SUMMARY | 2024-11-02 12:50 | XMS_ITS | Continuity of Care Document ---
Author Organization [facility] [place] Address [address] [facility] [address] [place] [address] Phone Care Team Providers Care Sap Bi Architect Name Role Phone Be Hendricks MD Primary Care Provider [phone] LandonGabby DO Unavailable Encounters Date Type Department Care Team Description 07/13/2024 10:30 AM EDT Office Visit [facility] [address] [place] [phone] Rolf Gregorio PA-C Primary osteoarthritis of both hips (Primary Dx); Right hip pain 06/22/2024 10:45 AM EST Office Visit [facility] [address] [place] [address] Rolf Gregorio PA-C Primary osteoarthritis of both hips (Primary Dx) 06/13/2024 9:15 AM EST Ancillary Procedure [facility] [address] [place] [address] Rolf Gregorio PA-C Right hip pain 06/13/2024 9:45 AM EST Office Visit [facility] [place] [address] [place] [address] Rolf Gregorio PA-C Right hip pain (Primary Dx); Primary osteoarthritis of both hips 07/25/2018 9:30 AM EDT Office Visit [facility] [address] [place] [address] Gabby Navarrete DO Coronary artery disease involving walker river coronary artery of walker river heart without angina pectoris (Primary Dx); Essential hypertension; SAEED (obstructive sleep apnea) 11/15/2017 10:15 AM EDT Office Visit [facility] [address] [place] [phone] Gabby Navarrete DO ASHD (arteriosclerotic heart disease) (Primary Dx); Essential hypertension; Ischemic heart disease; SAEED (obstructive sleep apnea) 05/17/2017 9:15 AM EST Office Visit [facility]&[address] [place] [address] Gabby Navarrete DO Coronary artery disease involving walker river coronary artery of walker river heart without angina pectoris (Primary Dx); Essential hypertension; Dyslipidemia 02/04/2017 1:58 PM EDT - 02/04/2017 11:59 PM EDT Hospital Encounter [facility] ECHO [address] [facility] [address] [place] [address] Gabby Navarrete DO Essential hypertension; Hyperlipidemia, unspecified hyperlipidemia type; Tachycardia; Coronary artery disease involving walker river coronary artery of walker river heart with angina pectoris; CELAYA (dyspnea on exertion); Chest pain, unspecified type; Acute chest pain Discharge Disposition: Home or Self Care 02/03/2017 9:30 AM EDT Office Visit [facility]&[address] [address] Gabby Navarrete DO Coronary artery disease involving walker river coronary artery of walk[place] river heart with angina pectoris (Primary Dx); Essential hypertension; Dyslipidemia; Chronic ischemic heart disease; Stable angina 01/26/2017 Telephone [facility]&[address] [address] Gabby Navarrete DO Appointment Needed 01/22/2017 5:14 PM EDT - 01/24/2017 10:36 AM EDT Hospital Encounter [place] [address] [address] Lenny Macias DO Chest pain, unspecified; Chest pain, unspecified Discharge Disposition: Home or Self Care 01/23/2017 2:00 PM EDT - 01/23/2017 3:00 PM EDT Surgery [facility] ONCOLOGY SOCIAL WORKER [facility] [place] [address] Tex Sharma MD LEFT HEART CATHETERIZATION 01/07/2017 9:30 AM EDT Office Visit [facility] [address] [place] [address] Gabby Navarrete DO Essential hypertension (Primary Dx); Hyperlipidemia, unspecified hyperlipidemia type; Tachycardia; Coronary artery disease involving walker river coronary artery of walk[place] river heart with angina pectoris; CELAYA (dyspnea on exertion); Chest pain, unspecified type; Acute chest pain 01/01/2016 Telephone [facility] [address] [place] [address] Gabby Navarrete DO Visit Follow Up 12/26/2015 9:20 AM EDT Office Visit [facility] [address] [place] [address] Gabby Navarrete DO Coronary artery disease involving walker river coronary artery of walker river heart without angina pectoris (Primary Dx); Hyperlipidemia; Essential hypertension 12/27/2014 9:55 AM EDT Office Visit [facility] [address] [place] [address] Gabby Navarrete DO Coronary artery disease involving walker river coronary artery of walker river heart without angina pectoris (Primary Dx); Dyslipidemia; Essential hypertension; SAEED (obstructive sleep apnea) 06/26/2014 9:45 AM EST Office Visit [facility] [address] [place] [address] Gabby Navarrete DO CAD (coronary artery disease) (Primary Dx); Dyslipidemia; HTN (hypertension); Hypothyroidism; Obesity 03/27/2014 3:24 PM EST - 03/27/2014 11:59 PM EST Hospital Encounter [facility] MRI [address] [place], [place] [id number] Be Hendricks MD Thoracic or lumbosacral neuritis or radiculitis, unspecified Discharge Disposition: Home or Self Care 12/13/2013 1:20 PM EDT Office Visit [facility] [address] [place] [phone] Landon Gabby CAD (coronary artery disease) (Primary Dx); HTN (hypertension); Dyslipidemia 09/28/2013 9:30 AM EDT - 09/28/2013 11:59 PM EDT Hospital Encounter [facility] STRESS TEST [address] [place] [address] Be Hendricks MD CAD (coronary artery disease); Chest pain Discharge Disposition: Home or Self Care 09/28/2013 9:30 AM EDT - 09/28/2013 11:59 PM EDT Hospital Encounter [facility] ECHO [address] [place] [address] Be Hendricks MD CAD (coronary artery disease); Chest pain Discharge Disposition: Home or Self Care 01/02/2011 Orders Only [facility] [address] [address] Smooth Newman MD 01/02/2011 7:34 AM EDT - 01/02/2011 11:59 PM EDT Hospital Encounter [facility] [place] [address] Internal hemorrhoids without mention of complication; Diverticulosis of colon (without mention of hemorrhage); Hemorrhage of rectum and anus; Angiodysplasia of intestine with hemorrhage Discharge Disposition: Home or Self Care 12/09/2010 Abstract [facility] [address] [address] Smooth Newman MD 08/11/2010 6:15 AM EDT - 08/13/2010 12:00 PM EDT Hospital Encounter [facility] [address] [place] [address] [place] [address] Shane Flynn MD Discharge Disposition: Home or Self Care 08/11/2010 8:00 AM EDT - 08/11/2010 11:05 AM EDT Surgery [facility] PERIOP [facility] [place] [address] Shane Flynn MD THYROIDECTOMY 08/07/2010 1:10 PM EDT - 08/07/2010 11:59 PM EDT Hospital Encounter [facility] [place] [address] Shane Flynn MD Discharge Disposition: Home or Self Care 08/07/2010 9:33 AM EDT - 08/07/2010 1:09 PM EDT Hospital Encounter [facility] D-WING XRAY [facility] [place] [address] Shane Flynn MD Discharge Disposition: Home or Self Care 08/07/2010 9:03 AM EDT - 08/07/2010 9:32 AM EDT Hospital Encounter [facility] PRE-ADMIT TESTING [facility] [place] [address] Discharge Disposition: Home or Self Care 07/16/2010 Abstract [facility] Rheumatology [address] [address] Dalila Tompkins MA 10/24/2008 12:01 AM EDT - 10/24/2008 10:32 AM EDT Hospital Encounter [facility] HAND THERAPY [facility] Minh Stringer MD 10/04/2008 11:36 AM EDT - 10/23/2008 11:59 PM EDT Hospital Encounter [facility] HAND THERAPY EDG Minh Stringer MD 10/04/2008 12:01 AM EDT - 10/04/2008 11:59 PM EDT Hospital Encounter [facility] EMG EDG Minh Stringer MD 03/16/2006 12:01 AM EST - 03/16/2006 11:59 PM EST Hospital Encounter [facility] RADIOLOGY EDG Surjit Caruso MD 03/03/2006 2:08 AM EST - 03/08/2006 11:27 AM EST Hospital Encounter HST 2B1 Sheng Brady MD Russell, Jeffrey W, MD 01/22/2006 11:44 AM EDT - 01/22/2006 11:59 PM EDT Hospital Encounter [facility] RADIOLOGY EDG Surjit Caruso MD Allergies No known active allergies Medications aspirin 81 mg tablet Take 81 mg by mouth daily. Active FLUOXETINE HCL (FLUOXETINE ORAL) Take 40 mg by mouth daily. Active HYDROCODONE BIT/ACETAMINOPH EN (VICODIN ORAL) Take 2 Tabs by mouth every 6 hours as needed. Take 1-2 tabs every 4-6hours for pain Active levothyroxine (SYNTHROID) 150 mcg tablet Take 175 mcg by mouth daily. Active lisinopril (PRINIVIL;ZESTR IL) 40 mg tablet Take 40 mg by mouth daily. Active pravastatin (PRAVACHOL) 20 mg Oral Tablet Take 40 mg by mouth daily. Active metFORMIN (GLUCOPHAGE) 1,000 mg Oral Tablet Take 1,000 mg by mouth 2 times daily. Active calcium carbonate (TUMS) 200 mg calcium (500 mg) Oral Tablet, Chewable Take 1 Tab by mouth nightly. Active clopidogrel (PLAVIX) 75 mg Oral Tablet Take 1 Tab by mouth daily. 90 Tab 2 9 Active ranolazine (RANEXA) 500 mg Oral Tablet Sustained Release 12 hr Take 1 Tab by mouth every 12 hours. 60 Tab 6 9 Active oxyCODONE (ROXICODONE) 5 mg Oral Tablet Take 1 Tablet by mouth 2 times daily as needed. Active clobetasoL (TEMOVATE) 0.05 % Top Cream Apply topically 2 times daily. Active JARDIANCE 25 mg Oral Tablet Take 1 Tablet by mouth daily. Active ezetimibe (ZETIA) 10 mg Oral Tablet TAKE ONE TABLET BY MOUTH DAILY FOR high cholesterol Active nitroGLYCERIN (NITROSTAT) 0.4 mg SL Tablet, Sublingual DISSOLVE 1 TABLET UNDER THE TONGUE EVERY 5 MINUTES NEEDED FOR CHEST PAIN. DO NOT EXCEED A TOTAL OF 3 DOSES IN 15 MINUTES. Active PARoxetine (PAXIL) 20 mg Oral Tablet Take 1 Tablet by mouth daily. Active Active Problems Problem Noted Date Diagnosed Date Primary osteoarthritis of both hips 06/13/2024 Right hip pain 06/13/2024 Abnormal angiogram 01/24/2017 Overview (01/24/2017): [facility] 01/23/17 3 Vessel CAD Normal LV systolic function Unsuccessful PCI of RPLLVB (Unable to cross Add Ranexa Home tomorrow / If refractory symptoms, can try again in a few weeks with different equipment from the femoral approach Essential hypertension 01/23/2017 Coronary artery disease invo lving walker river coronary artery of walker river heart with unstable angina pectoris 01/23/2017 Hypothyroid 01/23/2017 DISH (diffuse idiopathic skeletal hyperostosis) 01/23/2017 Chest pain, unspecified 01/22/2017 Overview (01/23/2017): Added automatically from request for surgery [id number] Immunizations Immunization Administration Dates Next Due Influenza Vaccine Quadrivalent PF 01/24/2017 Family History Medical History Relation Name Comments Heart Surgery Brother 1 cabg x3 Hypertension Brother 2 Heart Attack Father Heart Disease Father Diabetes Mother Heart Attack Paternal Uncle Relation Name Status Comments Brother 1 Brother 2 Alive Father (Age 50) Mother Alive Paternal Uncle Sister Alive Social History Smoking Status as of 11/02/2024 Tobacco Use Types Packs/Day Years Used Date Smoking Tobacco: Never Assessed Sex and Gender Information Value Date Recorded Sex Assigned at Not on file Legal Sex Male 3:30 PM EDT Gender Identity Not on file Sexual Orientation Not on file Last Filed Vital Signs Vital Sign Reading Time Taken Comments Blood Pressure 139/84 07/25/2018 9:20 AM EDT Pulse 70 07/25/2018 9:20 AM EDT Temperature 36.9 C (98.4 F) 01/24/2017 5:49 AM EDT Respiratory Rate 16 01/24/2017 8:46 AM EDT Oxygen Saturation 95% 11/15/2017 10:07 AM EDT Inhaled Oxygen Concentration - - Weight 132.5 kg (292 lb) 06/22/2024 10:38 AM EST Height 182.9 cm (6') 06/22/2024 10:38 AM EST Body Mass Index 39.6 06/22/2024 10:38 AM EST Plan of Treatment Upcoming Encounters Date Type Department Care Team (Late st Contact Info) Description 11/03/2024 9:45 AM EDT Office Visit [facility] [address] [place] [phone] Rolf Gregorio PA-C [address] [place] [address] Procedures Procedure Name Priority Date/Time Associated Diagnosis Comments TN ARTHROCENTESIS ASPIR&/INJ MAJOR JT/BURSA W/US Routine 06/22/2024 10:45 AM EST Primary osteoarthritis of both hips XR HIP BILATERAL 5 VIEW Routine 06/13/2024 9:29 AM EST Right hip pain EC ECHOCARDIOGRAM COMPLETE W DOPPLER AND COLOR FLOW MAPPING Routine 02/04/2017 3:34 PM EDT Essential hypertension Hyperlipidemia, unspecified hyperlipidemia type Tachycardia Coronary artery disease involving walker river coronary artery of walker river heart with angina pectoris CELAYA (dyspnea on exertion) Chest pain, unspecified type Acute chest pain SCANNED RHYTHM STRIPS 01/29/2017 9:52 AM EDT SCANNED RHYTHM STRIPS 01/24/2017 8:31 AM EDT GLUCOSE METER POC Routine 01/24/2017 7:59 AM EDT BASIC METABOLIC PANEL Timed 01/24/2017 7:09 AM EDT HEMOGLOBIN A1C Routine 01/24/2017 5:00 AM EDT SCANNED RHYTHM STRIPS 01/24/2017 4:23 AM EDT EK EKG 12 LEAD Routine 01/24/2017 12:05 AM EDT GLUCOSE METER POC Routine 01/23/2017 9:07 PM EDT SCANNED RHYTHM STRIPS 01/23/2017 6:34 PM EDT CORONARY PERCUTANEOUS INTERVENTION(PCI) Routine 01/23/2017 3:15 PM EDT Chest pain, unspecified LEFT VENTRICULOGRAM Routine 01/23/2017 3:15 PM EDT Chest pain, unspecified LEFT HEART CATH Routine 01/23/2017 3:15 PM EDT Chest pain, unspecified CARDIAC PROCEDURE Routine 01/23/2017 3:15 PM EDT Chest pain, unspecified ACTIVATED CLOTTING TIME + POC Routine 01/23/2017 3:03 PM EDT ACTIVATED CLOTTING TIME + POC Routine 01/23/2017 2:48 PM EDT ACTIVATED CLOTTING TIME + POC Routine 01/23/2017 2:34 PM EDT ONCOLOGY SOCIAL WORKER HEMODYNAMIC WAVEFORMS Routine 01/23/2017 1:54 PM EDT BASIC METABOLIC PANEL Routine 01/23/2017 6:12 AM EDT EK EKG 12 LEAD Routine 01/23/2017 12:05 AM EDT DIFFERENTIAL Routine 01/22/2017 6:04 PM EDT TROPONIN-T Routine 01/22/2017 6:04 PM EDT LIPID SCREEN Routine 01/22/2017 6:04 PM EDT MAGNESIUM LEVEL Routine 01/22/2017 6:04 PM EDT HEPATIC FUNCTION PANEL Routine 01/22/2017 6:04 PM EDT THYROID STIMULATING HORMONE Routine 01/22/2017 6:04 PM EDT PARTIAL THROMBOPLASTIN TIME Routine 01/22/2017 6:04 PM EDT PT / INR Routine 01/22/2017 6:04 PM EDT BASIC METABOLIC PANEL Routine 01/22/2017 6:04 PM EDT CBC WITH DIFF Routine 01/22/2017 6:04 PM EDT IP CONSULT TO CARDIOLOGY Routine 01/22/2017 5:27 PM EDT Procedure Note - Tex Sharma MD - 01/23/2017 12:20 PM EDTThis note is in progress. Heart and Vascular Cardiology Consultation ADMISSION: 01/23/2017 PATIENT: Cari Pisano :1955, , CSN: [id number] PCP: Be Hendricks MD Date:01/23/2017 at 12:21 PM Primary Web Designer Developer: Dr Navarrete I would like to thank Lenny Macias DO for requesting me to see yourTerallan Pisano in consultation for CP. Chief Complaint: No chief complaint on file. Pt is a 61 y/o male with a h/o ASHD s/p multiple PCI, SAEED, HTN, and HLD.Pt presents to the Er with C/O chest pain radiating into his neck, leftshoulder and LUE associated with SOB. CP is increasing in frequency,intensity, duration and changing in pattern. CP lasted a few hours andwas relieved with ASA, NTG sl and oxygen. CP is exacerbated withexertion. Pt is scheduled for a stress test on 01/07/17. Past Medical History Past Medical History: Diagnosis Date Arthritis Depression DISH (diffuse idiopathic skeletal hyperostosis) Diverticulitis Hypertension x5 stents dr santos fletcher [place] (myocardial infarction) ([facility]) 2003,2009 Thyroid disease Medication No current facility-administered medications on file prior to encounter. Current Outpatient Prescriptions on File Prior to Encounter Medication Sig Dispense Refill aspirin 81 mg tablet Take 81 mg by mouth daily. CALCIUM CARBONATE (CALCIUM 500 ORAL) Take 1 Tab by mouth 2 times daily.Take 1 tab 2 times a day for 7 days clopidogrel (PLAVIX) 75 mg tablet Take by mouth daily. FLUOXETINE HCL (FLUOXETINE ORAL) Take 40 mg by mouth daily. HYDROCODONE BIT/ACETAMINOPHEN (VICODIN ORAL) Take 2 Tabs by mouth every6 hours as needed. Take 1-2 tabs every 4-6hours for pain levothyroxine (SYNTHROID) 150 mcg tablet Take 175 mcg by mouth daily. lisinopril (PRINIVIL;ZESTRIL) 40 mg tablet Take 40 mg by mouth daily. pravastatin (PRAVACHOL) 20 mg Oral Tablet Take 20 mg by mouth daily. bisoprolol (ZEBETA) 5 mg Oral Tablet Take 1 Tab by mouth daily. (Patientnot taking: Reported on 01/22/2017) 90 Tab 3 Scheduled Meds: Aspirin 325 mg Oral Daily Or aspirin 300 mg Rectal Daily clopidogrel 75 mg Oral Daily flu vac [id number] 36mos up(PF) 0.5 mL Intramuscular ONCE FLUoxetine 40 mg Oral Daily levothyroxine 175 mcg Oral Daily lisinopril 40 mg Oral Daily pravastatin 20 mg Oral Nightly Continuous Infusions: Past Surgical History Past Surgical History: Procedure Laterality Date CARDIAC SURGERY COLECTOMY CORONARY ANGIOPLASTY WITH STENT PLACEMENT HAND SURGERY graciela carpal tunnel THYROIDECTOMY 08/11/2010 THYROIDECTOMY performed by SHANE FLYNN at [facility] MAIN OR Allergy No Known Allergies Family History Family History Problem Relation Age of Onset Heart Disease Father Heart Attack Father 50 Diabetes Mother Heart Surgery Brother 47 cabg x3 Heart Attack Paternal Uncle 52 Hypertension Brother Social History Social History Substance Use Topics Smoking status: Former Smoker Quit date: 07/16/2005 Smokeless tobacco: Never Used Alcohol use 3.6 oz/week 6 Cans of beer per week Comment: occ Review of Systems Review of Systems: The listed systems were reviewed and reveal thefollowing in addition to any already discussed in the HPI: Constitutional: No fever, chills, or weight loss Eyes: No visual disturbance HENT: No headache, hearing loss, epistaxis, sore throat, or hoarseness Lungs: No cough, hemoptysis, or pleuritic chest pain Cardiovascular: No orthopnea Endocrine: No polyuria, or polyphagia GI: No abdominal pain, nausea, vomiting, hematemesis, diarrhea,constipation, melena, : No dysuria, or hematuria Musculoskeletal: No myalgias Neurologic: No focal numbness or weakness Skin: No edema, jaundice, or skin discoloration Psychiatric: No depression Hematologic/Allergic: No history of blood clots, bleeding or easybruising Objective: BP 129/64 (BP Location: Left arm, Patient Position: Semi Fowlers) Pulse70 Temp 98.3 F (36.8 C) (Oral) Resp 18 Ht 6' 4 (1.93 m) Wt289 lb 12.8 oz (131.5 kg) SpO2 96% BMI 35.28 kg/m Body mass index is 35.28 kg/m . Wt Readings from Last 3 Encounters: 01/23/17 289 lb 12.8 oz (131.5 kg) 01/07/17 294 lb (133.4 kg) 12/26/15 288 lb (130.6 kg) General: alert, appears stated age and cooperative EENT: Mouth moist, No Scleral icterus, Normocephalic. Atraumatic Neck: No carotid bruits. Negative JVD Lung: clear to auscultation bilaterally Heart: regular rate and rhythm, S1, S2 normal, no murmur, click, rub orgallop Abdomen: normal findings: soft, non-tender Extremities: extremities normal, atraumatic, no cyanosis or edema Pulses: 2+ and symmetric Skin: Warm and dry. Neuro: mental status, speech normal, alert and oriented x iii No chest deformities Mood: Good 24HR INTAKE/OUTPUT: Intake/Output Summary (Last 24 hours) at 01/23/17 1221 Last data filed at 01/23/17 1009 Gross per 24 hour Intake 360 ml Output 0 ml Net 360 ml Diagnostic tests and labs Lab Results Component Value Date WBC 9.7 01/22/2017 HGB 14.2 01/22/2017 HCT 42.9 01/22/2017 PLT 231 01/22/2017 Lab Results Component Value Date CREATININE 0.95 01/23/2017 BUN 14 01/23/2017 NA 134 (L) 01/23/2017 K 4.6 01/23/2017 CL 96 (L) 01/23/2017 CO2 23 01/23/2017 Lab Results Component Value Date CHOLESTEROL 221 (H) 01/22/2017 TRIG 308 (H) 01/22/2017 HDL 41 01/22/2017 LDLCALC 118 (H) 01/22/2017 Lab Results Component Value Date ALT 45 (H) 01/22/2017 AST 48 (H) 01/22/2017 Lab Results Component Value Date TSH 0.998 01/22/2017 Lab Results Component Value Date INR 1.03 01/22/2017 No results found for: CKTOTAL, CKMB, CKMBINDEX, TROPONINI Ek Ekg 12 Lead Result Date: 01/23/2017 Stationary ECG StudySt. Bernice NewbyInterpretive Statements SINUSRHYTHM WITH SINUS ARRHYTHMIA minor T-wave changes in lateral leads Noprior studies available for comparison Electronically Signed On 01-23-20177:23:35 EDT by Akil Rojas MD ECG: NSR with LAE Telemetry: normal sinus The most recent cardiovascular imaging studies availabe in [facility] EMR werereviewed at time of consultation Assessment: Code Status Full Code Active Hospital Problems Diagnosis *Coronary artery disease involving walker river coronary artery of nativeheart with unstable angina pectoris (HCC) Essential hypertension Hypothyroid DISH (diffuse idiopathic skeletal hyperostosis) Plan: Chest Pain / unstable angina -trop negative x1 C today ASHD with h/o multiple PCI -continue ASA, BB, Plavix, GEMMA and statin Slightly Elevated LFT -appears chronic - defer to attending Dyslipidemia -continue statin at current dose due to slightly elevated LFT. Considerincreasing statin in the future as outpatient Hypertension stable Further input per KEVON Vaughn I have seen and examined the patient and agree with the findings as notedabove. My additional observations and recommendations are noted below. 61 year old male with 15 year history of CAD. He's had prior PCIprocedures, all at [facility] in [place]. The most recent procedure was8 years ago. He now presents with crescendo angina with features verysimilar to prior presentations. GXT scheduled in 2 week following officeappt 2 weeks ago. He does not smoke, and is compliant with medications. NAD Chest clear Heart no murmur or gallop Abd soft and NT Ext no edema SR Lab noted IMPRESSION Crescendo angina Hyperlipidemia HTN Hypothyroid PLAN Cardiac cath recommended The risks, benefits, rationale, and alternatives to the planned procedurewere discussed, and He agrees to proceed as planned. Questions wereanswered to the patient's satisfaction. Increase statin Continue beta moreno Tex Sharma MD 01/23/2017 1:49 PM MRI LUMBAR SPINE WO CONTRAST Routine 03/27/2014 4:35 PM EST Thoracic or lumbosacral neuritis or radiculitis, unspecified SCANNED RADIOLOGY REPORT 09/28/2013 12:36 PM EDT EC ECHOCARDIOGRAM COMPLETE W DOPPLER AND COLOR FLOW MAPPING Routine 09/28/2013 11:00 AM EDT CAD (coronary artery disease) Chest pain ST STRESS TEST EXERCISE Routine 09/28/2013 10:21 AM EDT CAD (coronary artery disease) Chest pain HEPATIC FUNCTION PANEL Routine 01/02/2011 7:38 AM EDT Internal hemorrhoids without mention of complication Diverticulosis of colon (without mention of hemorrhage) Hemorrhage of rectum and anus Angiodysplasia of intestine with hemorrhage GMED COLONOSCOPY Routine 01/02/2011 12:00 AM EDT SCANNED LABS 08/14/2010 12:00 AM EDT SCANNED ANESTHESIA FORMS 08/14/2010 12:00 AM EDT SCANNED PRE/POST PROCEDURES 08/14/2010 12:00 AM EDT CALCIUM LEVEL TOTAL Timed 08/13/2010 6:22 AM EDT CALCIUM LEVEL TOTAL Timed 08/12/2010 6:05 PM EDT CALCIUM LEVEL TOTAL Timed 08/12/2010 6:12 AM EDT SCANNED OR REPORT 08/12/2010 12:00 AM EDT CALCIUM LEVEL TOTAL Timed 08/11/2010 5:35 PM EDT PARATHYROID HORMONE INTACT Timed 08/11/2010 2:12 PM EDT CALCIUM LEVEL TOTAL Timed 08/11/2010 2:12 PM EDT PATHOLOGY TISSUE REPORT Routine 08/11/2010 10:44 AM EDT THYROIDECTOMY 08/11/2010 8:14 AM EDT THYROID MASS Special Needs [facility] CPT;[id number] GUTOWSKI BLOCK RL - IMMUNOLOGY REV PT TYPE CHG FR SA TO SDS PER [facility] KF 07/23 REV: DATE CHG FR 59 TO 18 CALL LAB DF 4-12LM 08/05 DTREV: ADDED AWAKE FIBEROPTIC INTUBATION PER [facility] ORNELAS 4-12EST 6754/KELLIE DIFFERENTIAL STAT 08/11/2010 6:45 AM EDT PARATHYROID HORMONE INTACT STAT 08/11/2010 6:45 AM EDT CALCIUM LEVEL TOTAL STAT 08/11/2010 6:45 AM EDT CBC WITH DIFF STAT 08/11/2010 6:45 AM EDT XR CHEST PA AND LATERAL Pre-Op 08/07/2010 9:37 AM EDT DIFFERENTIAL Pre-Op 08/07/2010 9:27 AM EDT PARTIAL THROMBOPLASTIN TIME Pre-Op 08/07/2010 9:27 AM EDT PT / INR Pre-Op 08/07/2010 9:27 AM EDT HEPATIC FUNCTION PANEL Pre-Op 08/07/2010 9:27 AM EDT BASIC METABOLIC PANEL Pre-Op 08/07/2010 9:27 AM EDT CBC WITH DIFF Pre-Op 08/07/2010 9:27 AM EDT EK EKG 12 LEAD Pre-Op 08/07/2010 9:22 AM EDT SCANNED OR REPORT 12/07/2009 12:00 AM EDT SCANNED OR REPORT 12/07/2009 12:00 AM EDT SCANNED OR REPORT 12/07/2009 12:00 AM EDT FL CYSTOGRAM Routine 03/16/2006 9:08 AM EST EK EKG REG Routine 02/25/2006 11:[address] ABD/PELVIS PINMAKER Routine 01/22/2006 2:07 PM EDT Results * TN ARTHROCENTESIS ASPIR&/INJ MAJOR JT/BURSA W/US (06/22/2024 10:45 AM EST) Narrative ORTHOCINCY - 06/22/2024 10:45 AM EST Rolf Gregorio PA-C 07/09/2024 9:37 PM Large Joint Injection/Arthrocentesis: R hip joint on 06/22/2024 10:45 AM Indications: pain Details: 22 G (Spinal needle) needle, ultrasound-guided anterolateral approach Medications: 2 mL BUPivacaine HCl 0.5 % (5 mg/mL); 2 mg betamethasone acet-betamethasone sodium phos 6 mg/mL Outcome: tolerated well, no immediate complications Procedure, treatment alternatives, risks and benefits explained, specific risks discussed. Consent was given by the patient. Immediately prior to procedure a time out was called to verify the correct patient, procedure, equipment, patient support specialist and site/side marked as required. Patient was prepped and draped in the usual sterile fashion. Degreednancy ASIF-Eliel PROCEDURE/MINOR SURGICAL ORDE RABLES Final Result Performing Organization Address [facility] Co de Phone Number ORTHOCINCY * XR HIP BILATERAL 5 VIEW (06/13/2024 9:29 AM EST) Narrative ORTHOCINCY - 06/13/2024 9:29 AM EST Please see physician's note from office encounter for x-ray imaging result Rolf ASIF-C IMG DIAGNOSTIC IMAGING ORDERA BLES Final Result Performing Organization Address [facility] Co de Phone Number ORTHOCINCY * EC ECHOCARDIOGRAM COMPLETE W DOPPLER AND COLOR FLOW MAPPING (02/04/2017 3:34 PM EDT) Only the most recent of2 resultswithin the time period is included. Ejection Fraction 60-65 % PYRAMIS Anatomical Region Laterality Modality Electrocardiogra phy 02/04/2017 2:53 PM EDT Impressions 02/04/2017 6:48 PM EDT CONCLUSIONS Left ventricular ejection fraction is in the normal range. No evidence of hemodynamically significant valve abnormalities. Narrative Procedure Note Gabby Navarrete MD - 02/04/2017 IMPRESSION CONCLUSIONS Left ventricular ejection fraction is in the normal range. No evidence of hemodynamically significant valve abnormalities. us Gabby Navarrete DO IMG ECHO ORDERABLES Final Result * SCANNED RHYTHM STRIPS (01/29/2017 9:52 AM EDT) Only the most recent of4 resultswithin the time period is included. Anatomical Region Laterality Modality Other 01/29/2017 9:52 AM EDT us Unknown Unknown IMG ECG ORDERABLES Edited Result - Final * (ABNORMAL) GLUCOSE METER POC (01/24/2017 7:59 AM EDT) Only the most recent of2 resultswithin the time period is included. [facility] Glucose Meter POC 199(H) 70 - 100 mg/dL [facility] POINT [facility] CARE LABORATORY Sample Type Capillary [facility] Patient Status Non-Critical Patient [facility] Blood specimen (specimen) 01/24/2017 7:59 AM EDT 01/24/2017 7:59 AM EDT us Lenny T Gilberto DO POINT OF CARE TEST ORDERABLES Fi nal Result [facility] POINT [facility]ARE LABORATORY [address] [address] * (ABNORMAL) BASIC METABOLIC PANEL (01/24/2017 7:09 AM EDT) Only the most recent of4 resultswithin the time period is included. [facility] Sodium 133(L) 136 - 145 mmol/L [facility] Potassium 4.9 3.5 - 5.0 mmol/L [facility] Chloride 98 98 - 107 mmol/L [facility] Total CO2 22 22 - 29 mmol/L [facility] Anion Gap 13 7 - 16 mmol/L [facility] Calcium 9.0 8.8 - 10.2 mg/dL [facility] Glucose Lvl 179(H) 82 - 100 mg/dL [facility] BUN 17 8 - 23 mg/dL [facility] Creatinine 1.00 0.67 - 1.30 mg/dL [facility] GFR Afr Am >60 [facility] LAB[facility] GFR Non Afr Am >60 [facility] Blood specimen (specimen) 01/24/2017 7:09 AM EDT 01/24/2017 7:15 AM EDT us Tex Sharma MD CHEMISTRY ORDERABLES Edited Re sult - Final Performing Organization Address [facility] [place] [address] * (ABNORMAL) HEMOGLOBIN A1C (01/24/2017 5:00 AM EDT) Hgb A1c 7.5(H) <=7.0 % [facility] Comment: Reference Interval for Hgb A1c Hgb A1c Interpretation < 6.0 Non-Diabetic Range 6.0 - 7.0 ADA Therapeutic Target > 7.0 Action suggested Blood specimen (specimen) UPPER LIMB STRUCTURE / Unknown 01/24/2017 5:00 AM EDT 01/24/2017 5:39 AM EDT Giuseppe Medrano MD CHEMISTRY ORDERABLES Fin al Result Performing Organization Address [facility] [place] [address] * EK EKG 12 LEAD (01/24/2017 12:05 AM EDT) Only the most recent of3 resultswithin the time period is included. Anatomical Region Laterality Modality Electrocardiogra phy 01/24/2017 7:25 AM EDT Impressions 01/24/2017 3:27 PM EDT [facility] Interpretive Statements SINUS BRADYCARDIA WITH SINUS ARRHYTHMIA Electronically Signed On 01-24-2017 15:27:37 EDT by Chester Martin MD Narrative Procedure Note Chester Martin MD - 01/24/2017 IMPRESSION [facility] Interpretive Statements SINUS BRADYCARDIA WITH SINUS ARRHYTHMIA Electronically Signed On 01-24-2017 15:27:37 EDT by Chester Martin MD us Lenny Macias DO IMG ECG ORDERABLES Final Result * CORONARY ANGIOGRAM (COR/LHC/LV GRAM, CARDIAC CATHETERIZATION), LEFT HEART CATH, LEFT VENTRICULOGRAM, CORONARY PERCUTANEOUS INTERVENTION(PCI) (01/23/2017 3:15 PM EDT) Cath EF Estimated 60 % [facility] Narrative [facility] - 01/23/2017 3:28 PM EDT 3 Vessel CAD Normal LV systolic function Unsuccessful PCI of RPLLVB (Unable to cross) Coronary Findings Diagnostic Dominance: Right Left Main: The vessel was visualized by angiography, is large and is angiographically normal. Left Anterior Descending: The vessel was visualized by angiography and is large. Mid LAD-1 lesion 30% stenosed. Mid LAD-2 lesion 40% stenosed. Dist LAD lesion 70% stenosed. The lesion is located instent. Very distal at ARB in stent Left Circumflex: The vessel was visualized by angiography and is large. Prox Cx lesion 25% stenosed. Third Obtuse Marginal Branch: Ost 3rd Mrg lesion 99% stenosed. Small vessel with PETER 1 flow Right Coronary Artery: The vessel was visualized by angiography and is large. Second Right Posterolateral Branch: 2nd RPLB lesion 95% stenosed. The lesion is discrete and bifurcated. Ostium of second PLLVB ~2.25-2.5 mm vessel Intervention 2nd RPL lesion: PCI: Angioplasty alone was performed. The pre-interventional distal flow is decreased (PETER 2). The post-interventional distal flow is decreased (PETER 2). The intervention was unsuccessful. This was due to an inability to cross the lesion. Multiple guide wire attempts There is a 95% residual stenosis post intervention. Left Ventricle The left ventricular size is normal. The left ventricular systolic function is normal. The patient's LV Systolic pressure is normal. The patient's LV End Diastolic pressure is normal. The ejection fraction is greater than 55% by visual estimate. Mitral Valve There is mild (2+) mitral regurgitation. Wall Motion All segments of the heart are normal. us Tex Sharma MD CARDIAC CATH ORDERABLES Final Result [facility] * (ABNORMAL) ACTIVATED CLOTTING TIME POC (01/23/2017 3:03 PM EDT) Only the most recent of3 resultswithin the time period is included. Pathologist [facility] ACT -LR 279(H) 89 - 169 second(s) [facility] POINT [facility]ARE LABOR[facility] Blood specimen (specimen) 01/23/2017 3:03 PM EDT 01/23/2017 3:03 PM EDT Lenny Macias DO POINT OF CARE TEST ORDERABLES Fi nal Result Performing Organization Address [facility] de Phone Number [facility]ARE [facility]ATORY [address] [place] [address] * ONCOLOGY SOCIAL WORKER HEMODYNAMIC WAVEFORMS (01/23/2017 1:54 PM EDT) 01/23/2017 1:54 PM EDT Tex Sharma MD CARDIAC CATH ORDERABLES Final Result Performing Organization Address [facility] de Phone Number [facility] [address] [place] [address] * TROPONIN-T (01/22/2017 6:04 PM EDT) [facility] Troponin-T <0.01 <=0.00 ng/mL [facility] Comment: Values > or = 0.01 ng/mL have been shown to have prognostic value. Blood specimen (specimen) 01/22/2017 6:04 PM EDT 01/22/2017 6:10 PM EDT Lenny Macias DO CHEMISTRY ORDERABLES Final Resul t Performing Organization Address [facility] de Phone Number [facility] [address] [place] [address] * DIFFERENTIAL (01/22/2017 6:04 PM EDT) Only the most recent of3 resultswithin the time period is included. Pathologist [facility] Neut Percent 65.9 % [facility] Lymph Percent 22.4 % [facility] Major Percent 8.4 % [facility] Eos Percent 2.2 % [facility] Baso Percent 1.1 % [facility] Neut# 6.4 1.8 - 7.7 x10(3)/[facility] LABORATORY Lymph# 2.2 0.6 - 4.8 x10(3)/[facility] LABORATORY Major# 0.8 0.0 - 1.3 x10(3)/[facility] LABORATORY Eos# 0.2 0.0 - 0.5 x10(3)/[facility] LABORATORY Baso# 0.1 0.0 - 0.2 x10(3)/[facility] LABORATORY Blood specimen (specimen) 01/22/2017 6:04 PM EDT 01/22/2017 6:10 PM EDT Lenny Macias DO HEMATOLOGY ORDERABLES Final Resu lt Performing Organization Address [facility] [place] [address] * PARTIAL THROMBOPLASTIN TIME (01/22/2017 6:04 PM EDT) Only the most recent of2 resultswithin the time period is included. Pathologist [facility] PTT 30.8 26.0 - 36.4 second(s) [facility] Comment: Therapeutic range for unfractionated heparin: 53.0 - 94.4 seconds Therapeutic range for direct thrombin inhibitors: Argatroban is 1.5 to 3 times the aPTT baseline. Lepirudin is 1.5 to 2 times the aPTT baseline. The aPTT should not exceed 100 seconds. The dosage of Argatroban should be decreased in patients with hepatic impairment. The dosage of Lepirudin should be decreased in renal insufficiency. Blood specimen (specimen) UPPER LIMB STRUCTURE / Unknown 01/22/2017 6:04 PM EDT 01/22/2017 6:10 PM EDT us Lenny Macias DO HEMATOLOGY ORDERABLES Final Resu lt Performing Organization Address City/[facility]/[place] [address] * PT / INR (01/22/2017 6:04 PM EDT) Only the most recent of2 resultswithin the time period is included. Pathologist [facility] PT 11.4 9.7 - 12.5 second(s) [facility] INR 1.03 0.88 - 1.12 [facility] Comment: Level of Therapy Indications Target INR Range Standard Dose Treatment and prophylaxis of venous 2.0 - 3.0 thrombosis, pulmonary embolism High Dose High risk patients with mechanical 2.5 - 3.5 heart valves Blood specimen (specimen) UPPER LIMB STRUCTURE / Unknown 01/22/2017 6:04 PM EDT 01/22/2017 6:10 PM EDT us Lenny Macias DO HEMATOLOGY ORDERABLES Final Resu lt Performing Organization Address [facility] Co de Phone Number [facility] [address] [place] [address] * CBC WITH AUTO DIFF (01/22/2017 6:04 PM EDT) Only the most recent of3 resultswithin the time period is included. Pathologist [facility] WBC 9.7 4.0 - 11.0 x10(3)/mcL [facility] RBC 4.92 4.30 - 5.81 x10(6)/mcL [facility] Hgb 14.2 13.5 - 17.1 gm/dL [facility] Hct 42.9 38.9 - 51.6 % [facility] MCV 87.2 82.5 - 99.8 fL [facility] MCH 28.8 27.0 - 34.3 pg [facility] MCHC 33.1 32.1 - 35.3 gm/dL [facility] RDW 14.8 11.5 - 15.0 % [facility] Platelet 231 144 - 423 x10(3)/mcL [facility] MPV 9.0 6.8 - 10.8 fL [facility] Blood specimen (specimen) UPPER LIMB STRUCTURE / Unknown 01/22/2017 6:04 PM EDT 01/22/2017 6:10 PM EDT us Lenny Macias DO HEMATOLOGY ORDERABLES Final Resu lt Performing Organization Address City/[facility]/ZIP Co de Phone Number [facility] [address] [place] [address] * THYROID STIMULATING HORMONE (01/22/2017 6:04 PM EDT) Pathologist [facility] TSH 0.998 0.270 - 4.200 mcIU/mL [facility] Blood specimen (specimen) UPPER LIMB STRUCTURE / Unknown 01/22/2017 6:04 PM EDT 01/22/2017 6:10 PM EDT us Lenny Macias DO CHEMISTRY ORDERABLES Final Resul t Performing Organization Address [facility] Co de Phone Number [address] [address] * MAGNESIUM LEVEL (01/22/2017 6:04 PM EDT) [facility] Magnesium 2.0 1.6 - 2.4 mg/dL [facility] Blood specimen (specimen) UPPER LIMB STRUCTURE / Unknown 01/22/2017 6:04 PM EDT 01/22/2017 6:10 PM EDT us Lenny Macias DO CHEMISTRY ORDERABLES Final Resul t Performing Organization Address [facility] [place] [address] * (ABNORMAL) HEPATIC FUNCTION PANEL (01/22/2017 6:04 PM EDT) Only the most recent of3 resultswithin the time period is included. [facility] Total Protein 8.1 6.4 - 8.3 gm/dL [facility] Albumin 4.2 3.2 - 4.6 gm/dL [facility] Bili Direct <0.2 0.0 - 0.3 mg/dL [facility] Bili Total 0.4 0.1 - 1.4 mg/dL [facility] AST 48(H) <=40 IU/L [facility] ALT 45(H) <=41 IU/L [facility] Alk Phos 89 40 - 129 IU/L [facility] Blood specimen (specimen) UPPER LIMB STRUCTURE / Unknown 01/22/2017 6:04 PM EDT 01/22/2017 6:10 PM EDT us Lenny Macias DO CHEMISTRY ORDERABLES Final Resul t Performing Organization Address [facility] Co de Phone Number [facility] [address] [place] [address] * (ABNORMAL) LIPID SCREEN (01/22/2017 6:04 PM EDT) Cholesterol 221(H) <=200 mg/dL [facility] Comment: < 200 Desirable 200 - 239 Borderline High >= 240 High Triglyceride 308(H) <=150 mg/dL [facility] Comment: < 150 Normal 150 - 199 Borderline High 200 - 499 High >= 500 Very High HDL 41 >=40 mg/dL [facility] Comment: > 60 Optimal 40 - 60 Acceptable < 40 Low LDL Calculated 118(H) <=100 mg/dL [facility] Comment: < 100 Optimal 100 - 129 Near or above optimal 130 - 159 Borderline High 160 - 189 High >= 190 Very High Blood specimen (specimen) UPPER LIMB STRUCTURE / Unknown 01/22/2017 6:04 PM EDT 01/22/2017 6:10 PM EDT us Lenny Macias DO CHEMISTRY ORDERABLES Edited Resu lt - Final Performing Organization Address [facility] de Phone Number [facility] [address] [place] [address] * MRI LUMBAR SPINE WO CONTRAST (03/27/2014 4:35 PM EST) Anatomical Region Laterality Modality L-spine Magnetic Resonan ce 03/27/2014 3:24 PM EST Impressions 03/28/2014 4:01 AM EST IMPRESSION: 1. Extensive multilevel degenerative changes as described. 2. Prominent anterolateral osteophyte formation with near confluent osteophyte formation in the upper lumbar spine. Partial fusion of both sacroiliac joints is also noted. Narrative 03/28/2014 4:01 AM EST CLINICAL HISTORY: 724.4-Thoracic or lumbosacral neuritis or radiculitis, [id number]. COMPARISON: None. TECHNIQUE: MRI LUMBAR SPINE WO CONTRAST on Mar 27, 2014 04:35:41 PM. FINDINGS: The alignment of the lumbar spine is normal. The vertebral heights are maintained and there is no fracture. There is extensive anterolateral osteophyte formation throughout the entire visualized thoracolumbar spine. The osteophyte formation is essentially confluent at the L1-L2 and L2-L3 levels. There is also evidence of partial fusion of both sacroiliac joints. The visualized portions of the spinal cord are normal with the conus terminating at the L1 level. The soft tissues are unremarkable. From the T11-T12 through the L1-L2 levels, the disc heights are preserved and the central canal and neural foramina patent. At L2-L3, there is mild disc height loss with disc desiccation. The central canal and neural foramina are patent. At L3-L4, there is moderate disc height loss with disc desiccation and a small annular fissure. Moderate facet hypertrophy is noted. A broad disc protrusion along with the facet hypertrophy results in mild narrowing of both neural foramen. At L4-L5, there is mild disc height loss with disc desiccation. There is moderate facet hypertrophy but the central canal and neural foramina patent. At L5-S1, there is moderate-severe disc height loss with disc desiccation and a small annular fissure. There is a small central disc extrusion encroaching upon both lateral recesses. Severe facet hypertrophy is noted which contributes to moderate-severe left and mild to moderate right neural foramen narrowing when combined with osteophyte formation and disc height loss. Procedure Note Wilber Palmer MD - 03/28/2014 CLINICAL HISTORY: 724.4-Thoracic or lumbosacral neuritis or radiculitis,[id number]. COMPARISON: None. TECHNIQUE: MRI LUMBAR SPINE WO CONTRAST on Mar 27, 2014 04:35:41 PM. FINDINGS: The alignment of the lumbar spine is normal. The vertebralheights are maintained and there is no fracture. There is extensive anterolateral osteophyteformation throughout the entire visualized thoracolumbar spine. The osteophyte formation isessentially confluent at the L1-L2 and L2-L3 levels. There is also evidence of partial fusion of bothsacroiliac joints. The visualized portions of the spinal cord are normal with the conusterminating at the L1 level. The soft tissues are unremarkable. From the T11-T12 through the L1-L2 levels, the disc heights are preservedand the central canal and neural foramina patent. At L2-L3, there is mild disc height loss with disc desiccation. Thecentral canal and neural foramina are patent. At L3-L4, there is moderate disc height loss with disc desiccation and asmall annular fissure. Moderate facet hypertrophy is noted. A broad disc protrusion along withthe facet hypertrophy results in mild narrowing of both neural foramen. At L4-L5, there is mild disc height loss with disc desiccation. There ismoderate facet hypertrophy but the central canal and neural foramina patent. At L5-S1, there is moderate-severe disc height loss with disc desiccationand a small annular fissure. There is a small central disc extrusion encroaching upon bothlateral recesses. Severe facet hypertrophy is noted which contributes to moderate-severe left andmild to moderate right neural foramen narrowing when combined with osteophyte formation anddisc height loss. IMPRESSION: 1. Extensive multilevel degenerative changes as described. 2. Prominent anterolateral osteophyte formation with near confluentosteophyte formation in the upper lumbar spine. Partial fusion of both sacroiliac joints is alsonoted. Be Hendricks MD [facility] MRI ORDERABLES Final Result * SCANNED RADIOLOGY REPORT (09/28/2013 12:36 PM EDT) Anatomical Region Laterality Modality Other us Unknown Unknown [facility] DIAGNOSTIC IMAGING ORDERABLE S Final Result * ST STRESS TEST EXERCISE (09/28/2013 10:21 AM EDT) Anatomical Region Laterality Modality Cardiac Stress T esting 09/28/2013 9:53 AM EDT Be Hendricks MD [facility] STRESS ORDERABLES Final Resu lt * GMED COLONOSCOPY (01/02/2011 12:00 AM EDT) 01/02/2011 Impressions [facility] - 11/07/2012 12:20 PM EDT Grade 4 internal hemorrhoids Varicosities of the mid-distal sigmoid colon with an actively bleeding ulceration. (endoclip) Diverticulosis of the sigmoid colon, descending colon, proximal transverse colon, hepatic flexure and ascending colon Otherwise normal colonoscopy to cecum Narrative [facility] - 11/07/2012 12:20 PM EDT Performing Provider: Smooth Newman M.D. Referring Provider: Cecil Hendricks MD us Smooth Newman MD GI PROCEDURE ORDERABLES Josie l Result [facility] [address] [place] [address] * SCANNED PRE/POST PROCEDURES (08/14/2010 12:00 AM EDT) Narrative 08/14/2010 3:30 PM EDT Ordered by an unspecified provider. Transcriptions Unknown, Unknown - 08/14/2010 3:30 PM EDT us Unknown Unknown PROCEDURE/MINOR SURGICAL ORDERAB LES Final Result * SCANNED ANESTHESIA FORMS (08/14/2010 12:00 AM EDT) Narrative 08/14/2010 3:31 PM EDT Ordered by an unspecified provider. Transcriptions Unknown, Unknown - 08/14/2010 3:30 PM EDT us Unknown Unknown PROCEDURE/MINOR SURGICAL ORDERAB LES Final Result * SCANNED LABS (08/14/2010 12:00 AM EDT) Narrative 08/14/2010 3:31 PM EDT Ordered by an unspecified provider. Transcriptions Unknown, Unknown - 08/14/2010 3:30 PM EDT us Unknown Unknown HEMATOLOGY ORDERABLES Final Resu lt * CALCIUM LEVEL TOTAL (08/13/2010 6:22 AM EDT) Only the most recent of6 resultswithin the time period is included. Calcium 8.6 8.6 - 10.3 mg/dL [facility] Blood specimen (specimen) UPPER LIMB STRUCTURE / Unknown 08/13/2010 6:22 AM EDT 08/13/2010 6:40 AM EDT us Shane Flynn MD CHEMISTRY ORDERABLES Final Resul t Performing Organization Address City/[facility]/ZIP Co de Phone Number [facility] [address] [place] [address] * SCANNED OR REPORT (08/12/2010 12:00 AM EDT) Narrative 08/12/2010 2:24 PM EDT Ordered by an unspecified provider. Transcriptions Unknown, Unknown - 08/12/2010 2:24 PM EDT us Unknown Unknown PROCEDURE/MINOR SURGICAL ORDERAB LES Final Result * PARATHYROID HORMONE INTACT (08/11/2010 2:12 PM EDT) Only the most recent of2 resultswithin the time period is included. Pathologist [facility] PTH Intact 41.2 pg/mL [facility] Comment: Intact PTH Calcium Interpretation 12 - 72 8.6 - 10.3 Normal > 72 > 10.3 Primary Hyperparathyroidism < 20 > 10.3 Non-Parathyroid hypercalcemia < 12 < 8.6 Hypoparathyroidism Consider the above as guidelines only. PTH results should be interpreted in conjunction with the total or ionized calcium level. The finding of a persistently high-normal calcium accompanied by a high-normal PTH (or a low-normal calcium accompanied by a low-normal PTH) warrants further investigation. Although the PTH may itself be within normal limits, it may be inappropriately high (or low) relative to the circulating calcium level. Blood specimen (specimen) UPPER LIMB STRUCTURE / Unknown 08/11/2010 2:12 PM EDT 08/11/2010 3:02 PM EDT us Shane Flynn MD CHEMISTRY ORDERABLES Final Resul t Performing Organization Address City/[facility]/ZIP Co de Phone Number [facility] [address] [place] [address] * SURGICAL PATHOLOGY REPORT (08/11/2010 10:44 AM EDT) Surgical Pathology Report PATIENT NAME:CARI PISANO Surgical Pathology Report Accession Number Collected Date/Time Received Date/Time [id number] 08/11/10 10:44 EDT 08/11/10 10:44 EDT Diagnosis 1 resection: - Gross and histologic changes of multinodular goiter. - Areas of cystic degeneration with old hemorrhage. - Focal areas of fibrosis and calcification. - Negative for papillary carcinoma. - Parathyroid tissue not identified. MALACHI LUNA MD (Electronically signed by) Verified: 08/12/2010 [facility] Laboratory Clinical Information Thyroid mass Frozen Section Diagnosis Part 1) Sampled nodules benign./DB (Reported to Dr. Flynn). TAT 16 minutes. Part 2) Sampled nodule benign./DB (Reported to Dr. Flynn). TAT 14 min. Gross Description Part 1) Received fresh for frozen section diagnosis labeled with the patient's name and left thyroid is a thyroid lobectomy specimen, 54 gm, 7.0 x 5.0 x 2.5 cm. The unremarkable outer surface is inked. Serial sections show multiple wray-pink to red cystic/colloid nodules up to 1.8 cm involving approximately 75% of the lobe. Two of the larger nodules have somewhat firm fibrous areas up to 1.5 cm. The remainder of the lobe shows faintly nodular red parenchyma. Random nodules are sampled for frozen section diagnosis and resubmitted in cassette 1FS. Nursery Nurse permanent sections are submitted in ten additional cassettes (1A-1J). /BC Part 2) Received fresh for frozen section labeled with the patient's name and right thyroid. The specimen consists of a single piece of reddish wray multinodular thyroid tissue 48 gm and overall 10.5 x 5.0 x up to 2.0 cm. Externally, I do not see disruption of the capsule or evidence of parathyroid tissue or lymph nodes. Sectioning shows multiple nodules ranging from 5 mm up to a conglomerate of nodules closely packed which measure 2.5 cm. A 1.4 cm diameter nodule has a grayish wray somewhat granular cut surface. A portion of this is submitted for frozen section, subsequently submitted in cassette 2FSA. There is a small, 1.0 cm diameter nodule with partial capsule fibrosis. Sections across the gland sampling most of the tissue are submitted in ten additional cassettes, 2A-2J. /DB DRB/RB Microscopic Description Microscopic examination is performed and the findings corroborate the diagnosis. _ [facility] 08/11/2010 10:4 4 AM EDT us Shane Flynn MD PATHOLOGY ORDERABLES Final Resul t [facility] [address] [place] [address] * XR CHEST PA AND LATERAL (08/07/2010 9:37 AM EDT) Anatomical Region Laterality Modality Chest Radiographic Kaitlynn ging 08/07/2010 9:21 AM EDT Impressions 08/07/2010 9:53 AM EDT IMPRESSION: No acute disease. Narrative 08/07/2010 9:53 AM EDT TWO-VIEW CHEST, 08/07/2010 at 0927 HISTORY: Thyroid mass. FINDINGS: Comparison none. Heart size is normal. There are scattered calcifications from old healed granulomatous disease. Lungs otherwise clear. Procedure Note Ludwig Sharma - 08/07/2010 TWO-VIEW CHEST, 08/07/2010 at 0927 HISTORY: Thyroid mass. FINDINGS: Comparison none. Heart size is normal. There are scattered calcifications from old healed granulomatous disease.Lungs otherwise clear. IMPRESSION: No acute disease. us Shane Flynn MD IMG DIAGNOSTIC IMAGING ORDERABLE S Final Result * SCANNED OR REPORT (12/07/2009 12:00 AM EDT) Narrative 12/07/2009 11:52 AM EDT Ordered by an unspecified provider. Transcriptions Unknown, U - 12/07/2009 11:46 AM EDT us U Unknown PROCEDURE/MINOR SURGICAL ORDERAB LES Final Result * SCANNED OR REPORT (12/07/2009 12:00 AM EDT) Narrative 12/07/2009 11:42 AM EDT Ordered by an unspecified provider. Transcriptions Unknown, U - 12/07/2009 11:38 AM EDT us U Unknown PROCEDURE/MINOR SURGICAL ORDERAB LES Final Result * SCANNED OR REPORT (12/07/2009 12:00 AM EDT) Narrative 12/07/2009 11:36 AM EDT Ordered by an unspecified provider. Transcriptions Unknown, U - 12/07/2009 11:33 AM EDT us U Unknown PROCEDURE/MINOR SURGICAL ORDERAB LES Final Result * FL CYSTOGRAM (03/16/2006 9:08 AM EST) Anatomical Region Laterality Modality Other 03/16/2006 9:08 AM EST Narrative 03/16/2006 10:56 AM EST TO TAKE FILMS WITH Static cystogram 03/16/2006. HISTORY- Fistula repair. Fluoroscopy performed by YEFRI Arizmendi, with supervision by Nadir Yost MD. Predatory Hunter film of the abdomen shows a row of surgical lucía in a left paramedian location. Comparison is made to recent CT scan of 01/22/2006. Contrast was introduced into the bladder through an indwelling Mcdonald catheter. Early filling shows mild irregularity of the gallbladder escamilla. At peak filling of the bladder, there is no evidence of extravasation of contrast from the bladder. Postvoid films show no evidence of residual contrast outside the confines of the bladder. Incidental notation is made of moderately advanced degenerative spur formation at the acetabular margins. IMPRESSION- No evidence of fistula on this exam. Groover And Striper Operator- MILAD Presley Radiologist- NADIR YOST MD Released Date Time- 03/16/06 1454 Procedure Note Nadir Yost H - 07/03/2009 TO TAKE FILMS WITH Static cystogram 03/16/2006. HISTORY- Fistula repair. Fluoroscopy performed by YEFRI Arizmendi, with supervision by Nadir Yost MD. Predatory Hunter film of the abdomen shows a row of surgical lucía in a left paramedian location. Comparison is made to recent CT scan of 01/22/2006. Contrast was introduced into the bladder through an indwelling Mcdonald catheter. Early filling shows mild irregularity of the gallbladder escamilla. At peak filling of the bladder, there is no evidence of extravasation of contrast from the bladder. Postvoid films show no evidence of residual contrast outside the confines of the bladder. Incidental notation is made of moderately advanced degenerative spur formation at the acetabular margins. IMPRESSION- No evidence of fistula on this exam. Groover And Striper Operator- MILAD Presley Radiologist- NADIR YOST MD Released Date Time- 03/16/06 1454 Surjit Caruso MD [facility] Final Result * EK EKG REG (02/25/2006 11:28 AM EST) Anatomical Region Laterality Modality Other 02/25/2006 11:2 8 AM EST Narrative 02/26/2006 1:55 PM EST Sinus rhythm. Normal ECG. Groover And Striper Operator- ZITA Presley Radiologist- KHADRA JACOBSON MD Released Date Time- 02/26/06 1355 Procedure Note Khadra Jacobson - 07/03/2009 Sinus rhythm. Normal ECG. Groover And Striper Operator- ZITA Presley Radiologist- KHADRA JACOBSON MD Released Date Time- 02/26/06 1355 Harish Vincent MD [facility] KAROLYN Sebastian Final Result * CT ABD/PELVIS PINMAKER (01/22/2006 2:07 PM EDT) Anatomical Region Laterality Modality Other 01/22/2006 2:07 PM EDT Narrative 01/22/2006 3:[address] abdomen and pelvis with oral and IV contrast, 01/22/2006- Clinical history- Possible colovesical fistula. Findings- 3 mm thick axial sections are performed from lung bases through symphysis pubis following oral contrast and 100 cc Optiray 320. The images are reviewed on a workstation, with sagittal and coronal reconstructions reviewed. There is fatty infiltration of the liver. The spleen, adrenal glands, kidneys, pancreas, and gallbladder are normal, with a 1 cm cyst, midpole, left kidney. There is air in the bladder, which certainly could relate to a colovesical fistula if the patient has not been catheterized. There is an abnormal appearance to the sigmoid colon, with some induration of the fat of the sigmoid mesocolon and an irregular gas collection adjacent to the inferior margin of the sigmoid colon that is probably a small extraluminal localized area of abnormal gas. There may be thickening of a segment of sigmoid colon which appears inseparable from the superior margin of the bladder. Invasion of the bladder cannot be excluded. There are no localized fluid collections or abscesses. Impression- Presuming the patient has not been catheterized, air in the bladder is compatible with a colovesical fistula. Abnormal appearance to the sigmoid colon, with thickening of the wall, induration of the fat in the sigmoid mesocolon and question of small extraluminal gas collection. It is felt most likely that this is a primary colonic pathology, with differential including diverticulitis or colon carcinoma with invasion of bladder. A primary process of the bladder such as transitional cell carcinoma with secondary involvement of the colon with invasion is possible but less likely. Options for further evaluation would include cystoscopy, direct colonic visualization, or repeat CT with water soluble contrast infused through the rectum or water soluble Hypaque enema. Clinical correlation is necessary. Groover And Striper Operator- STACEY MARTIN Reading Radiologist- LEXIE WILKINS MD Released Date Time- 01/22/06 2135 Procedure Note Lexie Wilkins - 07/03/[address] abdomen and pelvis with oral and IV contrast, 01/22/2006- Clinical history- Possible colovesical fistula. Findings- 3 mm thick axial sections are performed from lung bases through symphysis pubis following oral contrast and 100 cc Optiray 320. The images are reviewed on a workstation, with sagittal and coronal reconstructions reviewed. There is fatty infiltration of the liver. The spleen, adrenal glands, kidneys, pancreas, and gallbladder are normal, with a 1 cm cyst, midpole, left kidney. There is air in the bladder, which certainly could relate to a colovesical fistula if the patient has not been catheterized. There is an abnormal appearance to the sigmoid colon, with some induration of the fat of the sigmoid mesocolon and an irregular gas collection adjacent to the inferior margin of the sigmoid colon that is probably a small extraluminal localized area of abnormal gas. There may be thickening of a segment of sigmoid colon which appears inseparable from the superior margin of the bladder. Invasion of the bladder cannot be excluded. There are no localized fluid collections or abscesses. Impression- Presuming the patient has not been catheterized, air in the bladder is compatible with a colovesical fistula. Abnormal appearance to the sigmoid colon, with thickening of the wall, induration of the fat in the sigmoid mesocolon and question of small extraluminal gas collection. It is felt most likely that this is a primary colonic pathology, with differential including diverticulitis or colon carcinoma with invasion of bladder. A primary process of the bladder such as transitional cell carcinoma with secondary involvement of the colon with invasion is possible but less likely. Options for further evaluation would include cystoscopy, direct colonic visualization, or repeat CT with water soluble contrast infused through the rectum or water soluble Hypaque enema. Clinical correlation is necessary. Groover And Striper Operator- STACEY MARTIN Reading Radiologist- LEXIE WILKINS MD Released Date Time- 01/22/06 2135 Surjit Caruso MD [facility] Final Result Visit Diagnoses Diagnosis Start Date Internal hemorrhoids without mention of complication 01/02/2011 Diverticulosis of colon (without mention of hemorrhage) 01/02/2011 Hemorrhage of rectum and anus 01/02/2011 Angiodysplasia of intestine with hemorrhage 01/02/2011 CAD (coronary artery disease) Coronary atherosclerosis of unspecified type of vessel, [place] or graft 09/28/2013 Chest pain Chest pain, unspecified 09/28/2013 CAD (coronary artery disease) Coronary atherosclerosis of unspecified type of vessel, [place] or graft 09/28/2013 Chest pain Chest pain, unspecified 09/28/2013 CAD (coronary artery disease) Coronary atherosclerosis of unspecified type of vessel, [place] or graft 12/13/2013 HTN (hypertension) Unspecified essential hypertension 12/13/2013 Dyslipidemia Other and unspecified hyperlipidemia 12/13/2013 Thoracic or lumbosacral neuritis or radiculitis, unspecified 03/27/2014 CAD (coronary artery disease) Coronary atherosclerosis of unspecified type of vessel, [place] or graft 06/26/2014 Dyslipidemia Other and unspecified hyperlipidemia 06/26/2014 HTN (hypertension) Unspecified essential hypertension 06/26/2014 Hypothyroidism Unspecified hypothyroidism 06/26/2014 Obesity Obesity, unspecified 06/26/2014 Coronary artery disease involving [place] coronary artery of [place] heart without angina pectoris 12/27/2014 Dyslipidemia Other and unspecified hyperlipidemia 12/27/2014 Essential hypertension Unspecified essential hypertension 12/27/2014 SAEED (obstructive sleep apnea) Obstructive sleep apnea (adult) (pediatric) 12/27/2014 Coronary artery disease involving [place] coronary artery of [place] heart without angina pectoris 12/26/2015 Hyperlipidemia Other and unspecified hyperlipidemia 12/26/2015 Essential hypertension Unspecified essential hypertension 12/26/2015 Essential hypertension Unspecified essential hypertension 01/07/2017 Hyperlipidemia, unspecified hyperlipidemia type 01/07/2017 Tachycardia Tachycardia, unspecified 01/07/2017 Coronary artery disease involving [place] coronary artery of [place] heart with angina pectoris 01/07/2017 CELAYA (dyspnea on exertion) Other dyspnea and respiratory abnormality 01/07/2017 Chest pain, unspecified type 01/07/2017 Acute chest pain Chest pain, unspecified 01/07/2017 Chest pain, unspecified 01/23/2017 Chest pain, unspecified 01/22/2017 Coronary artery disease involving [place] coronary artery of [place] heart with angina pectoris 02/03/2017 Essential hypertension Unspecified essential hypertension 02/03/2017 Dyslipidemia Other and unspecified hyperlipidemia 02/03/2017 Chronic ischemic heart disease Chronic ischemic heart disease, unspecified 02/03/2017 Stable angina Other and unspecified angina pectoris 02/03/2017 Essential hypertension Unspecified essential hypertension 02/04/2017 Hyperlipidemia, unspecified hyperlipidemia type 02/04/2017 Tachycardia Tachycardia, unspecified 02/04/2017 Coronary artery disease involving [place] coronary artery of [place] heart with angina pectoris 02/04/2017 CELAYA (dyspnea on exertion) Other dyspnea and respiratory abnormality 02/04/2017 Chest pain, unspecified type 02/04/2017 Acute chest pain Chest pain, unspecified 02/04/2017 Coronary artery disease involving [place] coronary artery of [place] heart without angina pectoris 05/17/2017 Essential hypertension Unspecified essential hypertension 05/17/2017 Dyslipidemia Other and unspecified hyperlipidemia 05/17/2017 ASHD (arteriosclerotic heart disease) Coronary atherosclerosis of unspecified type of vessel, [place] or graft 11/15/2017 Essential hypertension Unspecified essential hypertension 11/15/2017 Ischemic heart disease Chronic ischemic heart disease, unspecified 11/15/2017 SAEED (obstructive sleep apnea) Obstructive sleep apnea (adult) (pediatric) 11/15/2017 Coronary artery disease involving [place] coronary artery of [place] heart without angina pectoris 07/25/2018 Essential hypertension Unspecified essential hypertension 07/25/2018 SAEED (obstructive sleep apnea) Obstructive sleep apnea (adult) (pediatric) 07/25/2018 Right hip pain Pain in joint, pelvic region and thigh 06/13/2024 Right hip pain Pain in joint, pelvic region and thigh 06/13/2024 Primary osteoarthritis of both hips Primary localized osteoarthrosis, pelvic region and thigh 06/13/2024 Primary osteoarthritis of both hips Primary localized osteoarthrosis, pelvic region and thigh 06/22/2024 Primary osteoarthritis of both hips Primary localized osteoarthrosis, pelvic region and thigh 07/13/2024 Right hip pain Pain in joint, pelvic region and thigh 07/13/2024 Essential hypertension Unspecified essential hypertension 01/22/2017 Coronary artery disease involving [place] coronary artery of [place] heart with unstable angina pectoris (HCC) 01/22/2017 Hypothyroid Unspecified hypothyroidism 01/22/2017 DISH (diffuse idiopathic skeletal hyperostosis) Ankylosing vertebral hyperostosis 01/22/2017 Chest pain, unspecified 01/22/2017 Abnormal angiogram 01/22/2017 Care Teams Sap Bi Architect Relationship Specialty Start Date End Date Be Hendricks MD PCP - General 08/05/10 Gabby Navarrete DO [address] [place] [address] Internal Medicine-Cardiovascular Disease 12/08/13
--- OUTSIDE RECORDS SUMMARY | 2024-11-02 12:50 | XMS_ITS | Data Portability ---
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 Plan of Treatment Reminders Order Date Submit Date Provider Last Modified By Organization Details Last Modified Time Details Appointments None recorded. Lab CMP, serum or plasma 2022 023 [facility] (Registration ), [address], [place], [address], 3 09:14:05 PT/INR 2022 023 [facility] (Registration ), [address], [place], [address], 3 16:54:42 CBC w/ auto diff 2022 023 [facility] (Registration ), [address], [place], [address], 3 16:38:12 afp (alpha-feto protein), serum 2022 023 [facility] (Registration ), [place], [address], 3 09:14:07 ammonia, blood 2022 023 [facility] (Registration ), [place], [address], 3 16:59:09 PETER (antinuclea r antibodies) screen, serum [address] (Registration ), [facility] [address], [place], [address], 3 16:32:04 mitochondri al Ab, serum [address] (Registration ), [facility] [place], [address], 3 16:32:04 ferritin, serum or plasma [address] (Registration ), [facility] [place], [address], 3 16:32:04 hepatitis panel (A+B+C), acute, serum [address] (Registration ), [place], [address], 3 16:32:04 Referral None recorded. Procedures liver elastograph y, mechanicall y induced shear wave (PROC) 2022 023 AMANDEEP Not available 10:42:05 Surgeries None recorded. Imaging None recorded. Medication Orders None recorded. Patient TargetsNo targets recorded. Patient InstructionsNo instructions recorded. Reason for Referral None Reported. Results Created Date Observation Date Name Description Value Unit Range Abnormal Flag Note LastModifiedBy Organization Detail LastModifiedTime 12/25/19 23 12/24/2022 CBC W/AUT O DIFFE ARIC AL note SEE NOTE Order ing Provi becky: Faustino vazquez MD Not Available [place] [address] [place], [address], 12/24/2022 16:38:12 12/25/19 23 12/24/2022 CBC W/AUT O DIFFE RENTI AL white blood cell 9.3 10e3/ uL 4.5-13 .0 normal Not Available [address] [place], [place], [address], 12/24/2022 16:38:12 12/25/19 23 12/24/2022 CBC W/AUT O DIFFE RENTI AL red blood cell 5.26 10e6/ uL 4.10-5 .70 normal Not Available [place] [address], [place], [address], 12/24/2022 16:38:12 12/25/19 23 12/24/2022 CBC W/AUT O DIFFE RENTI AL hemoglobin 15.3 g/dL 12.0-1 6.9 normal Not Available [place] [address], [place], [address], 12/24/2022 16:38:12 12/25/19 23 12/24/2022 CBC W/AUT O DIFFE RENTI AL hematocrit 46.1 % 36.0-4 9.0 normal Not Available [place] [address], [place], [address], 12/24/2022 16:38:12 12/25/19 23 12/24/2022 CBC W/AUT O DIFFE RENTI AL mean cell volume 88 fL 78.0-9 8.0 normal Not Available [place] [address], [place], [address], 12/24/2022 16:38:12 12/25/19 23 12/24/2022 CBC W/AUT O DIFFE RENTI AL mean cell HGB 29.1 pg 25.0-3 5.0 normal Not Available [place] [address], [place], [address], 12/24/2022 16:38:12 12/25/19 23 12/24/2022 CBC W/AUT O DIFFE RENTI AL mean cell HGB concentratio n 33.2 g/dL 31.0-3 6.0 normal Not Available [address] [place], [place], [address], 12/24/2022 16:38:12 12/25/19 23 12/24/2022 CBC W/AUT O DIFFE RENTI AL red cell distribution width 14.2 % 11.0-1 5.0 normal Not Available [address] [place], [place], [address], 12/24/2022 16:38:12 12/25/19 23 12/24/2022 CBC W/AUT O DIFFE RENTI AL platelet count 215 10e3/ uL 150-40 0 normal Not Available [address] [place], [place], [address], 12/24/2022 16:38:12 12/25/19 23 12/24/2022 CBC W/AUT O DIFFE RENTI AL immature granulocyte % 1 0-1 normal Not Available [address] [place], [place], [address], 12/24/2022 16:38:12 12/25/19 23 12/24/2022 CBC W/AUT O DIFFE RENTI AL neutrophil % 57 % 35-75 normal Not Available [address] [place], [place], [address], 12/24/2022 16:38:12 12/25/19 23 12/24/2022 CBC W/AUT O DIFFE RENTI AL lymphocyte % 30 % 10-50 normal Not Available [address] [place], [place], [address], 12/24/2022 16:38:12 12/25/19 23 12/24/2022 CBC W/AUT O DIFFE RENTI AL monocyte % 10 % 0-15 normal Not Available [address] [place], [place], [address], 12/24/2022 16:38:12 12/25/19 23 12/24/2022 CBC W/AUT O DIFFE RENTI AL eosinophil % 3 % 0-5 normal Not Available [address] , [place], [address], 12/24/2022 16:38:12 12/25/19 23 12/24/2022 CBC W/AUT O DIFFE RENTI AL basophil % 1 % 0-5 normal Not Available [address] , [place], [address], 12/24/2022 16:38:12 12/25/19 23 12/24/2022 CBC W/AUT O DIFFE RENTI AL immature granulocyte # 0.05 x1000 /uL 0-0.05 normal Not Available [address] [place], [place], [address], 12/24/2022 16:38:12 12/25/19 23 12/24/2022 CBC W/AUT O DIFFE RENTI AL neutrophil # 5.28 x1000 /uL 1.50-8 .00 normal Not Available [address] [place], [place], [address], 12/24/2022 16:38:12 12/25/19 23 12/24/2022 CBC W/AUT O DIFFE RENTI AL lymphocyte # 2.78 x1000 /uL 1.20-5 .20 normal Not Available [address] [place], [place], [address], 12/24/2022 16:38:12 12/25/19 23 12/24/2022 CBC W/AUT O DIFFE RENTI AL monocyte # 0.89 x1000 /uL 0.30-0 .90 normal Not Available [address] , [place], [address], 12/24/2022 16:38:12 12/25/19 23 12/24/2022 CBC W/AUT O DIFFE RENTI AL eosinophil # 0.26 x1000 /uL 0.00-0 .50 normal Not Available [address] , [place], [address], 12/24/2022 16:38:12 12/25/19 23 12/24/2022 CBC W/AUT O DIFFE RENTI AL basophil # 0.07 x1000 /uL 0.00-0 .30 normal Not Available [address] , [place], [address], 12/24/2022 16:38:12 12/25/19 23 12/24/2022 CBC W/AUT O DIFFE RENMARYSOL AL NRBC automated 0.0 /100_ WBC Not Available [address] , [place], [address], 12/24/2022 16:38:12 12/25/19 23 12/24/2022 CBC W/AUT O DIFFE RENTI AL performing lab SEE NOTE - [facility] [address] [facility] [address] [facility] [id number] Not Available [address] [place], [place], [address], 12/24/2022 16:38:12 12/25/19 23 12/24/2022 PROTH ROMBI N TIME note SEE NOTE Order ing Provi becky: Faustino vazquez MD Not Available [address] , [place], [address], 12/24/2022 16:54:41 12/25/19 23 12/24/2022 PROTH ROMBI N TIME prothrombin time patient 10.9 secon ds 9.4-11 .6 normal Not Available [address] , [place], [address], 12/24/2022 16:54:41 12/25/19 23 12/24/2022 RODOLFO Lujan TIME internationa l normal ratio 1.0 0.9-1. 1 normal Recom jaylin d Thera peuti c Guide lines : INR Proph ylaxi s/liv atmen t of Venou s Throm bosis , Pulmo nary Embol ism ..... ..... ..... ..... 2.0-3 .0 Preve ntion of Syste deepa Embol ism ..... ..... . 2.0-3 .0 Tissu e Heart Valve , Valvu lar Heart Disea se. 2.0-3 .0 Atria l Fibri llati on ..... ..... ..... ..... ... 2.0-3 .0 Bilea flet mecha nical valve in aorti c posit ion 2.0-3 .0 Acute myoca rdial infar ction (to preve nt Syste deepa Embol ism). ..... ..... ..... ..... 2.5-3 .5 Mecha nical prost hetic valve s (high risk) ... 2.5-3 .5 Certa in patie nts with throm bosis and the antip hosph olipi d syndr ome ..... ..... ... >2.0- 3.0 Not Available [address] , [place], [address], 12/24/2022 16:54:41 12/25/1912/24/2022 RODOLFO Lujan TIME performing lab SEE NOTE - [facility] R [address] [employer] [address] [employer] [facility] [address] Not Available [address] [place], [place], [address], 12/24/2022 16:54:41 12/25/19 23 12/24/2022 SANGITA IA note SEE NOTE Order ing Provi becky: Faustino vazquez MD Not Available [address] , [place], [address], 12/24/2022 16:59:09 12/25/19 23 12/24/2022 SANGITA IA ammonia <10 umol/ L 11-32 low Not Available [address] , [place], [address], 12/24/2022 16:59:09 12/25/19 23 12/24/2022 SANGITA IA performing [facility] [address] [facility] [address] Not Available [address] , [place], [address], 12/24/2022 16:59:09 12/25/19 23 12/24/2022 COMP METAB OLIC PANEL note SEE NOTE Order ing Provi becky: Faustino vazquez MD Not Available [address] , [place], [address], 12/26/2022 09:14:05 12/25/19 23 12/24/2022 COMP METAB OLIC PANEL sodium 139 mmol/ L 136-14 5 normal Not Available [address] , [place], [address], 12/26/2022 09:14:05 12/25/19 23 12/24/2022 COMP METAB OLIC PANEL potassium 4.1 mmol/ L 3.5-5. 1 normal Not Available [address] , [place], [address], 12/26/2022 09:14:05 12/25/19 23 12/24/2022 COMP METAB OLIC PANEL chloride 101 mmol/ L 98-107 normal Not Available [address] , [place], [address], 12/26/2022 09:14:05 12/25/19 23 12/24/2022 COMP METAB OLIC PANEL carbon dioxide 29 mmol/ L 24-33 normal Not Available [address] , [place], [address], 12/26/2022 09:14:05 12/25/19 23 12/24/2022 COMP METAB OLIC PANEL anion gap 13.1 mmol/ L 10-20 normal Not Available [address] , [place], [address], 12/26/2022 09:14:05 12/25/19 23 12/24/2022 COMP METAB OLIC PANEL glucose 107 mg/dL 70-99 high Not Available [address] , [place], [address], 12/26/2022 09:14:05 12/25/19 23 12/24/2022 COMP METAB OLIC PANEL blood urea nitrogen 12 mg/dL 7-18 normal Not Available [address] , [place], [address], 12/26/2022 09:14:05 12/25/19 23 12/24/2022 COMP METAB OLIC PANEL creatinine 1.04 mg/dL 0.70-1 .30 normal Not Available [address] , [place], [address], 12/26/2022 09:14:05 12/25/1912/24/2022 COMP METAB OLIC PANEL GFR (estimated) 79 mL/mi n >60 normal [IM SOFIA NT]: The 2020 CKD-E PI equat ion is now the recom jaylin d stand trupti. This versi on does not inclu de race, as do the 2008 and 2011 CKD-E PI creat inine and creat inine -cyst atin C equat ions. Luciana e note that the eGFR now repor shay is gener ated by the new 2020 CKD-E PI equat ion, which decre ases the eGFR for black s by up to 10% and incre ases the eGFR for non-b lacks by up to 10% in johanna rison to the old equat ion. To johanna re a legac y eGFR to a curre nt value , a 2008 CKD-E PI calcu lator is easil y searc hable on the inter net. Calcu lated GFR: This calcu lated GFR is advoc ated by the Natio nal Kidne y Found ation to be used as an indic ator of Chron ic Kidne y Disea se (CKD) . 5 Stage s of Chron ic Kidne y Disea se. Stage 1 90 mL/mi n or more Healt hy kidne ys or Kidne y damag e with yeny l or high GFR detai ls Stage 2 60 to 89 mL/mi n Kidne y damag e and mild decre ase in GFR detai ls Stage 3 30 to 59 mL/mi n Moder ate decre ase in GFR detai ls Stage 4 15 to 29 mL/mi n Sever e decre ase in GFR detai ls Stage 5 Less than 15 mL/mi n On dialy sis or Kidne y failu re Patie nt's clini malcolm statu s must be consi dered for the care of your patie nt. Not Available [address] [place], [address], 12/26/2022 09:14:05 12/25/19 23 12/24/2022 COMP METAB OLIC PANEL BUN/creatini ne ratio 11 12-20 low Not Available [address] [place], [address], 12/26/2022 09:14:05 12/25/19 23 12/24/2022 COMP METAB OLIC PANEL total protein 8.3 g/dL 6.4-8. 2 high Not Available [address] [place], [address], 12/26/2022 09:14:05 12/25/19 23 12/24/2022 COMP METAB OLIC PANEL albumin 4.1 g/dL 3.4-5. 0 normal Not Available [address] , [place], [address], 12/26/2022 09:14:05 12/25/19 23 12/24/2022 COMP METAB OLIC PANEL globulin 4.2 g/dL 1.5-4. 0 high Not Available [address] , [place], [address], 12/26/2022 09:14:05 12/25/19 23 12/24/2022 COMP METAB OLIC PANEL albumin/glob ulin ratio 1.0 0.5-2. 0 normal Not Available [address] , [place], [address], 12/26/2022 09:14:05 12/25/19 23 12/24/2022 COMP METAB OLIC PANEL calcium 9.2 mg/dL 8.5-10 .1 normal Not Available [address] , [place], [address], 12/26/2022 09:14:05 12/25/19 23 12/24/2022 COMP METAB OLIC PANEL osmolality serum calculated 277 mOsm/ kg 272-28 8 normal Not Available [address] , [place], [address], 12/26/2022 09:14:05 12/25/19 23 12/24/2022 COMP METAB OLIC PANEL bilirubin total 0.5 mg/dL 0.2-1. 0 normal Use of this assay is not recom jaylin d for patie nts under going treat ment with Eltro mbopa g due to the poten tial for false ly eleva shay resul ts. Not Available [address] [place], [address], 12/26/2022 09:14:05 12/25/19 23 12/24/2022 COMP METAB OLIC PANEL SGOT/AST 31 U/L 15-37 normal Not Available [address] , [place], [address], 12/26/2022 09:14:05 12/25/19 23 12/24/2022 COMP METAB OLIC PANEL SGPT/ALT 38 U/L 16-63 normal Not Available [address] , [place], [address], 12/26/2022 09:14:05 12/25/19 23 12/24/2022 COMP METAB OLIC PANEL alkaline phosphatase total 92 U/L 46-116 normal Not Available [address] , [place], [address], 12/26/2022 09:14:05 12/25/19 23 12/24/2022 COMP METAB OLIC PANEL performing lab SEE [facility] [address] [facility] [address] Not Available [address] , [place], [address], 12/26/2022 09:14:05 12/25/19 23 12/24/2022 ALPHA FETOP ROTEI N TUMOR MARKE R note SEE NOTE Order ing Provi becky: Faustino vazquez MD Not Available [address] , [place], [address], 12/26/2022 09:14:07 12/25/1912/24/2022 ALPHA FETOP ROTEI N TUMOR MARKE R alpha fetoprotein tumor marker 3.4 NG/mL 0.0-8. 4 Meghan Diagn ostic s Elect meghan milum inesc ence Immun oassa y (ECLI A) . Value s obtai kaleb with diffe rent assay metho ds or kits canno t be used inter king eably . Resul ts canno t be inter prete d as absol augustine evide nce of the prese nce or absen ce of dang nolasco se. . This test is not inter preta ble in pregn ant femal es. Perfo rmed At: CB, [facility] [place] n [address] [facility], [place], [address] [address] Ros[address] pilar brewer, PhD, Phone : [phone] Not Available [address] , [place], [address], 12/26/2022 09:14:07 12/25/19 23 12/24/2022 ALPHA FETOP ROTEI N TUMOR MARKE R performing lab SEE NOTE LC2 - [facility] CLIEN T# [id number] 022 [address] [place] [address] Not Available [address] , [place], [address], 12/26/2022 09:14:07 12/25/19 23 08/05/2022 CT, abdom en + pelvi s, w/ contr ast No observ ation record ed. [email or web address] Not Available 09:03:43 01/02/20 23 12/29/2022 liver elast ograp hy, mecha nical ly induc ed shear wave (PROC ) No observ ation record ed. [email or web address] Not Available 2022 10:42:11 Result Notes None recorded. Problems Name Problem SNOMED Code Status Onset Date Resolution Date Notes Provider Name and Address Organization Details Recorded Time Sensorineural hearing loss 31902233 Active 2022 JF JOE, AUD [address], [place], [address] , [facility] [place] [facility] [place] 3 09:46:04 Cirrhosis - non-alcoholic 770096748 Active 2022 Shamar Arauz MD [address] [place] [address],[address], [place], [address] , [facility] [place] 15:47:08 Problem Notes None recorded. Procedures Surgical History Date Name Laterality Status Provider Name and Address Organization Details Recorded Time 09/25/19 23 Colonoscopy completed Joni JIMENEZ [facility] [place] 12/24/2022 14:44:02 03/13/20 15 EGD/Endoscopy completed Linda JIMENEZ [facility] [place] 02/23/2023 13:37:01 cardiac catheterization completed Linda JIMENEZ [facility] [place] 12/24/2022 09:11:35 partial resection of colon completed Linda JIMENEZ [facility] [place] 12/24/2022 09:12:33 Cholecystectomy completed Linda JIMENEZ [facility] [place] 12/24/2022 09:12:09 Imaging Results None recorded. Procedure Notes None recorded. Medical Equipment None Reported. Allergies No known drug allergies Medications Name Sig Start Date Stop Date Status Note LastModified by Organization Details LastModified Time fluoxetine 40 mg capsule 12/24 completed Not Available Not Available Not Available pravastatin 40 mg tablet Take 1 tablet every day by oral route. active Not Available Not Available No t Available clobetasol 0.05 % topical cream Apply 1 applicati on every day by topical route as needed for 14 days. active Not Available Not Available No t Available metronidazo le 500 mg tablet Take 1 tablet 3 times a day by oral route for 7 days. 12/24 completed Not Available Not Available Not Available clopidogrel 75 mg tablet Take 1 tablet every day by oral route for 90 days. active Not Available Not Available No t Available ciprofloxac in 500 mg tablet 12/24 completed Not Available Not Available Not Available hydrocodone 10 mg-acetamin ophen 325 mg tablet Take 1 tablet every day by oral route as needed for 30 days. 12/24 completed Not Available Not Available Not Available pravastatin 10 mg tablet 12/24 completed Not Available Not Available Not Available paroxetine 20 mg tablet Take 1 tablet every day by oral route for 90 days. active Not Available Not Available No t Available metformin 1,000 mg tablet Take 1 tablet twice a day by oral route for 90 days. active Not Available Not Available No t Available levothyroxi ne 150 mcg tablet Take 1 tablet every day by oral route for 90 days. active Not Available Not Available No t Available alcohol swabs 12/24 completed Not Available Not Available Not Available methylpredn isolone 4 mg tablets in a dose pack active Not Available Not Available Not Available colchicine 0.6 mg tablet Take 1 mg twice a day by oral route as needed for 15 days. active Not Available Not Available No t Available lisinopril 40 mg tablet Take 1 tablet every day by oral route for 90 days. active Not Available Not Available No t Available cefdinir 300 mg capsule 12/24 completed Not Available Not Available Not Available oxycodone 5 mg tablet Take 1 mg twice a day by oral route as needed for 30 days. active Not Available Not Available No t Available ezetimibe 10 mg tablet Take 1 tablet every day by oral route. active Not Available Not Available No t Available GaviLyte-G 236 gram-22.74 gram-6.74 gram-5.86 gram oral solution 12/24 completed Not Available Not Available Not Available Jardiance 25 mg tablet Take 1 tablet every day by oral route for 30 days. active Not Available Not Available No t Available plecanatide 3 mg tablet Take 1 tablet every day by oral route. 12/24 completed Not Available Not Available Not Available OneTouch Delica Plus Lancet 33 gauge active Not Available Not Available Not Available Vitals Date Recorded Body height Body mass index (BMI) Body weight Body temperature Heart rate Respiratory rate Systolic And Diastolic Provider Name and Address Organization Details Last Updated DateTime 3 182.88 cm 36.6 kg/m2 811961. 94 g 98.1 [degF] 66 /min 18 /min 121/70 mm[Hg] Joni JIMENEZ [facility] [place] 14:36:29 Date Recorded Body height Body mass index (BMI) Body weight Provider Name and Address Organization Details Last Updated DateTime 12/29/2022 182.88 cm 36.3 kg/m2 579405.32 g Joni JIMENEZ [facility] [place] 12/29/2022 08:44:12 Social History Question Answer Notes LastModified by Organizat ion Details LastModified Time Tobacco Smoking Status Former Smoker quit 2002 [facility] [place] 12/24/2022 14:43:01 What Is Your Level Of Caffeine Consumption? Moderate [email or web address] Information not available 02/01/2023 What Type Of Diet Are You Following? [email or web address] Information not available 02/01/2023 When Did You Quit Smoking? 16+yearssince lastcigarette [email or web address] Information not available 02/01/2023 What Was The Date Of Your Most Recent Tobacco Screening? 12/24/2022 [email or web address] Information not available 12/24/2022 Sex: Male Functional Status Question Answer Note LastModified by Organizat ion Details LastModified Time Do you use any illicit or recreational drugs? No [email or web address] Information not available 12/24/2022 Do you or have you ever used any other forms of tobacco or nicotine? No [email or web address] Information not available 02/01/2023 What is your level of alcohol consumption? Occasional Information not available 12/24/2022 What is your exercise level? Occasional Information not available 12/24/2022 Mental Status None recorded. Family History Relationship Description Onset Age of this Age Resolved Age Notes LastModified by Organization Details LastModified Time Unspecified Relation Family history of Myocardial infarction patern al family Not available 02/01/2023 12:39:22 Paternal Uncle Primary malignant neoplasm of colon 68 [email or web address] Not available 02/01 12:39:22 Brother Myocardial infarction [email or web address] Not available 12/24 14:42:34 Medical History Condition Response Coronary Artery Disease Y Gout Y None N Colon Cancer Y Kidney Stones N Hyperthyroidism N Hypothyroidism Y Depression Y COPD N Osteoporosis/Osteopenia N Diverticulitis/Diverticulosis N Colon Polyps N Anxiety Disorder N Diabetes Y Bleeding Disorder N Arthritis Y Seizures/Epilepsy N Tuberculosis N Hyperlipidemia Y Cancer N Stroke N Asthma N Sleep Apnea N GERD/Reflux N Hepatitis N Cirrhosis N Liver Disease N Heart Disease Y Hypertension Y Kidney Disease N Immunizations Vaccine Type Date Status Note Provider Nam e and Address Organization Details Recorded Time SARS-COV-2 (COVID-19) vaccine, UNSPECIFIED 04/26/2020 completed [facility] [place] [facility] [place] 12/24/2022 14:39:30 pneumococcal, unspecified formulation 01/24/2022 completed [facility] [place] [facility] [place] 12/24/2022 14:40:30 influenza, unspecified formulation 01/24/2022 completed [facility] [place] [facility] [place] 12/24/2022 14:40:23 Past Encounters Encounter ID Performer Location Encounter Start Date Encounter Closed Date Diagnosis/Indication Diagnosis SNOMED-CT Code Diagnosis ICD10 Code Diagnosis Note [id number] [facility]HANA [facility] [address]IO [address] [place] [address] 8 12/21/2022 09:16:24 12/21/2022 09:45:37 Sensorineural hearing loss 70537087 H90.3 [id number] Shamar Arauz MD [address],[place] [address] 0 12/24/2022 13:59:23 12/24/2022 15:56:47 Cirrhosis - non-alcoholic 175316149 K74.60 The patient has reported changes noted visibly and radiograph ically concerning for cirrhosis. At this point time suspect that were dealing with nonalcohol ic fatty liver with possible early cirrhosis. See lab work done below to assess for signs of hepatic function, and begin with a Fibroscan to assess the severity of the patient's fibrosis. [id number] Shamar Arauz MD [address],[place] [address] 0 12/29/2022 08:16:34 12/29/2022 15:21:52 Cirrhosis - non-alcoholic 815456921 K74.60 [id number] R[facility]HANA [facility] [address]IO [address] [place], [place] [phone] 02/01/2023 12:39:17 02/01/2023 13:14:10 Sensorineural hearing loss 16585931 H90.3 Health Concerns Section Related Observation LastModified by Organization Detai ls LastModified Time None Recorded Concern Status LastModified by Organization Details LastModified Time None Recorded Advance Directives Directive None Recorded Payers Insurance Date Sequence Insurance Name Policy Number Policy Purdy Covered Member ID Purdy Member ID Guarantor Name 11/13/2023 1 [place]MEDICARE REPLACEMENT HMO) [id number] Keaton Pisano [id number] Keaton Carters 10/05/2021 1 [place] [id number] Keaton Pisano [id number] Keaton Carters 10/02/2021 1 UNSPECIFIED REMIT PAYOR Keaton Pisano Notes Date Note Type Note Provider Name and Address Organization Details Recorded Time 12/21/2022 text/html Patient was seen today for a hearing aid service. Cleaned and adjusted hearing aids this date. RACHANA [facility] [address] , [place], [id number], [facility] [place] 12/21/2022 09:46:18 12/24/2022 text/html This is a 66-yea r-old male referred for evaluation of cirrhosis. The patient apparently underwent a cholecystectomy earlier this year, and intraoperatively the patient's liver was felt to appear somewhat nodular appearance. No biopsy was done subsequent the patient had a CT scan which also suggested nodular liver. The patient has no preceding history of liver disease, and is LFTs at that time were normal. The patient does have diabetes, hyperlipidemia and obesity therefore has risks factors for nonalcoholic fatty liver. The patient has no history of jaundice or pruritus no history of blood product exposure no family history of liver disease. Shamar Arauz MD [address] [place] [address],[address], [place], [address], [facility] [place] 12/24/2022 15:57:21 02/01/2023 text/html Mr. Pisano was seen today for a hearing aid fitting via [facility]. RACHANA [facility] [address], [place], [address], [facility] [place] 02/01/2023 13:37:53
--- OUTSIDE RECORDS SUMMARY | 2024-11-02 12:51 | XMS_ITS | Data Portability ---
Author Organization [facility] Address [address] [place] [address] Care Team Providers Care Adjunct Psychology Instructor Name Role Phone BE HENDRICKS Primary Care Provider Assessment Encounter Date Assessment Date Assessment LastModified by Organization Details LastModified Time 07/27/2023 07/27/2023 Medicare Preventive Services Check List reviewed and printed for patient. [email or web address] Not available 07/27/2023 07:31:32 Plan of Treatment Reminders Order Date Submit Date Provider Last Modified By Organization Details Last Modified Time Details Appointments None recorded. Lab TSH + free T4, serum 2023 024 [facility], [address], [address], [place], [address], 4 08:22:10 PSA, total, serum or plasma 2023 024 [facility], [address], [address], [place], [address], 4 08:22:13 HbA1c (hemoglobin A1c), blood 2023 024 [facility], [address], [address], [place], [address], 4 08:22:12 CMP, serum or plasma 2023 024 [facility], [address], [address], [place], [address], 4 08:22:11 lipid panel, serum 2023 024 [place] [facility], [address], [address], [place], [address], 4 08:22:12 microalbumi n/creatinin e, mass ratio, urine 2023 024 [facility], [address] [facility], [place], [address], 4 09:49:05 CBC w/ auto diff 2023 024 [place] [facility], [address], [address], [place], [address], 4 08:22:10 Referral diabetic ophthalmolo gy referral 2023 024 [email or web address] [address] Not available 4 11:59:13 Procedures diabetic foot screen (PROC) 2023 024 [email or web address] 45 Not available 4 08:08:51 Surgeries None recorded. Imaging US, duplex, carotid artery [address], [address] [place] [address] , [place], [address], 4 09:43:48 CT, head, w/o contrast 2021 022 [facility], [address] [place] [address] , [place], [address], 2 09:52:06 CT, maxillofaci al, w/o contrast 2021 [facility] [address] [place] [address] , [place], [address], 2 10:19:03 Medication Orders Jardiance 25 mg tablet 2023 024 Not available 4 09:44:11 valacyclovi r 1 gram tablet 2023 024 [email or web address] 45 Not available 4 09:36:40 [employer] 10 mg-325 mg tablet 2017 018 [email or web address] 45 Not available 09:36:55 Patient TargetsNo targets recorded. Patient Instructions Encounter Date Encounter Id Patient Instructions Last Modified By Organization Details Last Modified Time 12/29/2017 [id number] Reviewed medications and potential side effects [email or web address] Not available 02/03/2018 10:56:45 01/26/2018 [id number] Reviewed medications and potential side effects [email or web address] Not available 01/26/2018 15:03:01 04/03/2022 [id number] Call with change s RTC or ED if symptoms change or worsen Keep next interval checkup Cont. chronic meds as prescribed Chronic conditions are stable Discussed natural and expected course of this diagnosis and need to alert me if symptoms do not follow expected course or if any worsens [email or web address] Not available 04/03/2022 08:47:04 07/08/2023 [id number] shingles: care instructions Not available 07/08/2023 13:09:41 CALL W CHANGES RTC OR ED IF SYMPTOMS CHANGE OR WORSEN KEEP NEXT INTERVAL CHECKUP Not available 07/08/2023 13:09:50 07/27/2023 [id number] advance directives: care instructions Not available 07/27/2023 09:42:53 learning about depression Not available 07/27/2023 09:42:53 smoking cessatio n counseling, greater than 3 minutes up to 10 minutes* [email or web address] Not available 08/03/2023 08:08:59 preventing falls : care instructions Not available 07/27/2023 09:42:53 fall prevention education Not available 07/27/2023 09:42:53 medicare preventive services guide Not available 07/27/2023 09:42:53 learning about healthy weight Not available 07/27/2023 09:42:52 Learning About Being Physically Active Not available 07/27/2023 09:42:52 type 2 diabetes: care instructions Not available 07/27/2023 09:42:53 high blood pressure: care instructions Not available 07/27/2023 09:42:53 learning about high blood pressure Not available 07/27/2023 09:42:52 last dental exam - pt has false teeth. 30 minutes spent with patient in review, examination, discussion, and coordination of care. CALL WITH CHANGES RTC OR GO TO ED IF SYMPTOMS CHANGE OR WORSEN DISCUSSED IMPORTANCE OF DIET AND EXERCISE ROUTINE HEALTH MAINTANENCE REVIEWED MEDS REVD WITH PATIENT TODAY, SIDE EFFECTS DISCUSSED AND PATIENT VOICES UNDERSTANDING OF THIS CHRONIC ISSUES ARE STABLE CONT CURRENT MEDICATIONS PERSCRIBED Not available 07/27/2023 09:43:53 Reason for Referral Diabetic Ophthalmology Refer ral for Type 2 diabetes mellitus without complication Referring Physician: Bernice Pisano, Family Medicine, Encounter Date: 07/27/2023 Results Created Date Observation Date Name Description Value Unit Range Abnormal Flag Note LastModifiedBy Organization Detail LastModifiedTime 07/27/19 24 07/28/2023 TSH+F REE T4 TSH 1.210 uIU/m L 0.450- 4.500 Not Available [facility] ([facility]) [address] [place], [address], 07/28/2023 08:22:10 07/27/19 24 07/28/2023 TSH+F REE T4 T4,free(dire ct) 1.54 NG/dL 0.82-1 .77 Not Available [facility] ([facility]) [address] [place], [address], 07/28/2023 08:22:10 07/27/19 24 07/28/2023 CBC WITH DIFFE RENTI AL/PL ATELE T WBC 7.0 x10e3 /uL 3.4-10 .8 Not Available [facility] ([facility]) [address] [place], [address], 07/28/2023 08:22:10 07/27/19 24 07/28/2023 CBC WITH DIFFE RENTI AL/PL ATELE T RBC 5.26 x10e6 /uL 4.14-5 .80 Not Available [facility] ([facility]) [address] [facility], [place], [address], 07/28/2023 08:22:10 07/27/19 24 07/28/2023 CBC WITH DIFFE RENTI AL/PL ATELE T hemoglobin 15.1 g/dL 13.0-1 7.7 Not Available [facility] ([facility]) [address] [facility], [place], [address], 07/28/2023 08:22:10 07/27/19 24 07/28/2023 CBC WITH DIFFE RENTI AL/PL ATELE T hematocrit 47.1 % 37.5-5 1.0 Not Available [facility] ([facility]) [address] [facility], [place], [address], 07/28/2023 08:22:10 07/27/19 24 07/28/2023 CBC WITH DIFFE RENTI AL/PL ATELE T MCV 90 fL 79-97 Not Available [facility] ([facility]) [address] [place], [address], 07/28/2023 08:22:10 07/27/19 24 07/28/2023 CBC WITH DIFFE RENTI AL/PL ATELE T MCH 28.7 pg 26.6-3 3.0 Not Available [facility] ([facility]) [address] [place], [address], 07/28/2023 08:22:10 07/27/19 24 07/28/2023 CBC WITH DIFFE RENTI AL/PL ATELE T MCHC 32.1 g/dL 31.5-3 5.7 Not Available [facility] ([facility]) [address] [place], [address], 07/28/2023 08:22:10 07/27/19 24 07/28/2023 CBC WITH DIFFE RENTI AL/PL ATELE T RDW 14.3 % 11.6-1 5.4 Not Available [facility] ([facility]) [address] [facility], [place], [address], 07/28/2023 08:22:10 07/27/19 24 07/28/2023 CBC WITH DIFFE RENTI AL/PL ATELE T platelets 213 x10e3 /uL 150-45 0 Not Available [facility] ([facility]) [address] [facility], [place], [address], 07/28/2023 08:22:10 07/27/19 24 07/28/2023 CBC WITH DIFFE RENTI AL/PL ATELE T neutrophils 61 % not estab. Not Available [facility] ([facility]) [address] [facility], [place], [address], 07/28/2023 08:22:10 07/27/19 24 07/28/2023 CBC WITH DIFFE RENTI AL/PL ATELE T lymphs 26 % not estab. Not Available [facility] ([facility]) [address] [facility], [place], [address], 07/28/2023 08:22:10 07/27/19 24 07/28/2023 CBC WITH DIFFE RENTI AL/PL ATELE T monocytes 8 % not estab. Not Available [facility] ([facility]) [address] [facility], [place], [address], 07/28/2023 08:22:10 07/27/19 24 07/28/2023 CBC WITH DIFFE RENTI AL/PL ATELE T eos 3 % not estab. Not Available [facility] ([facility]) [address] [facility], [place], [address], 07/28/2023 08:22:10 07/27/19 24 07/28/2023 CBC WITH DIFFE RENTI AL/PL ATELE T basos 1 % not estab. Not Available [facility] ([facility]) [address] [facility], [place], [address], 07/28/2023 08:22:10 07/27/19 24 07/28/2023 CBC WITH DIFFE RENTI AL/PL ATELE T immature cells CAMPAIGN COORDINATOR Not Available [facility] ([facility]) [address] [facility], [place], [address], 07/28/2023 08:22:10 07/27/19 24 07/28/2023 CBC WITH DIFFE RENTI AL/PL ATELE T neutrophils (absolute) 4.4 x10e3 /uL 1.4-7. 0 Not Available [facility] ([facility]) [address] [facility], [place], [address], 07/28/2023 08:22:10 07/27/19 24 07/28/2023 CBC WITH DIFFE RENTI AL/PL ATELE T lymphs (absolute) 1.8 x10e3 /uL 0.7-3. 1 Not Available [facility] ([facility]) [address] [facility], [place], [address], 07/28/2023 08:22:10 07/27/19 24 07/28/2023 CBC WITH DIFFE RENTI AL/PL ATELE T monocytes(ab solute) 0.5 x10e3 /uL 0.1-0. 9 Not Available [facility] ([facility]) [address] [facility], [place], [address], 07/28/2023 08:22:10 07/27/19 24 07/28/2023 CBC WITH DIFFE RENTI AL/PL ATELE T eos (absolute) 0.2 x10e3 /uL 0.0-0. 4 Not Available [facility] ([facility]) [address] [facility], [place], [address], 07/28/2023 08:22:10 07/27/19 24 07/28/2023 CBC WITH DIFFE RENTI AL/PL ATELE T baso (absolute) 0.1 x10e3 /uL 0.0-0. 2 Not Available [facility] ([facility]) [address] [facility], [place], [address], 07/28/2023 08:22:10 07/27/19 24 07/28/2023 CBC WITH DIFFE RENTI AL/PL ATELE T immature granulocytes 1 % not estab. Not Available [facility] ([facility]) [address] [facility], [place], [address], 07/28/2023 08:22:10 07/27/19 24 07/28/2023 CBC WITH DIFFE RENTI AL/PL ATELE T immature grans (abs) 0.1 x10e3 /uL 0.0-0. 1 Not Available [facility] ([facility]) [address] [facility], [place], [address], 07/28/2023 08:22:10 07/27/19 24 07/28/2023 CBC WITH DIFFE RENTI AL/PL ATELE T NRBC CAMPAIGN COORDINATOR Not Available [facility] ([facility]) [address] [facility], [place], [address], 07/28/2023 08:22:10 07/27/19 24 07/28/2023 CBC WITH DIFFE RENTI AL/PL ATELE T hematology comments: CAMPAIGN COORDINATOR Not Available [facility] ([facility]) [address] [facility], [place], [address], 07/28/2023 08:22:10 07/27/19 24 07/28/2023 COMP. METAB OLIC PANEL (14) glucose 162 mg/dL 70-99 above high normal Not Available [facility] ([facility]) [address] [place], [address], 07/28/2023 08:22:11 07/27/19 24 07/28/2023 COMP. METAB OLIC PANEL (14) BUN 14 mg/dL 8-27 Not Available [facility] ([facility]) [address] [facility] [place], [address], 07/28/2023 08:22:11 07/27/19 24 07/28/2023 COMP. METAB OLIC PANEL (14) creatinine 1.04 mg/dL 0.76-1 .27 Not Available [facility] ([facility]) [address] [facility] [place], [address], 07/28/2023 08:22:11 07/27/19 24 07/28/2023 COMP. METAB OLIC PANEL (14) eGFR 78 mL/mi n/1.7 3 >59 Not Available [facility] ([facility]) [address] [facility] [place], [address], 07/28/2023 08:22:11 07/27/19 24 07/28/2023 COMP. METAB OLIC PANEL (14) BUN/creatini ne ratio 13 10-24 Not Available [facility] ([facility]) [address] [facility], [place], [address], 07/28/2023 08:22:11 07/27/19 24 07/28/2023 COMP. METAB OLIC PANEL (14) sodium 138 mmol/ L 134-14 4 Not Available [facility] ([facility]) [address] [facility] [place], [address], 07/28/2023 08:22:11 07/27/19 24 07/28/2023 COMP. METAB OLIC PANEL (14) potassium 5.0 mmol/ L 3.5-5. 2 Not Available [facility] ([facility]) [address] [facility] [place], [address], 07/28/2023 08:22:11 07/27/19 24 07/28/2023 COMP. METAB OLIC PANEL (14) chloride 102 mmol/ L 96-106 Not Available [facility] ([facility]) [address] [facility] [place], [address], 07/28/2023 08:22:11 07/27/19 24 07/28/2023 COMP. METAB OLIC PANEL (14) carbon dioxide, total 18 mmol/ L 20-29 below low normal Not Available [facility] ([facility]) [address] [facility], [place], [address], 07/28/2023 08:22:11 07/27/19 24 07/28/2023 COMP. METAB OLIC PANEL (14) calcium 9.8 mg/dL 8.6-10 .2 Not Available [facility] ([facility]) [address] [facility], [place], [address], 07/28/2023 08:22:11 07/27/19 24 07/28/2023 COMP. METAB OLIC PANEL (14) protein, total 8.0 g/dL 6.0-8. 5 Not Available [facility] ([facility]) [address] [facility], [place], [address], 07/28/2023 08:22:11 07/27/19 24 07/28/2023 COMP. METAB OLIC PANEL (14) albumin 4.5 g/dL 3.9-4. 9 Not Available [facility] ([facility]) [address] [facility] [place], [address], 07/28/2023 08:22:11 07/27/19 24 07/28/2023 COMP. METAB OLIC PANEL (14) globulin, total 3.5 g/dL 1.5-4. 5 Not Available [facility] ([facility]) [address] [facility] [place], [address], 07/28/2023 08:22:11 07/27/19 24 07/28/2023 COMP. METAB OLIC PANEL (14) A/G ratio 1.3 1.2-2. 2 Not Available [facility] ([facility]) [address] [facility] [place], [address], 07/28/2023 08:22:11 07/27/19 24 07/28/2023 COMP. METAB OLIC PANEL (14) bilirubin, total 0.8 mg/dL 0.0-1. 2 Not Available [facility] ([facility]) [address] [facility] [place], [address], 07/28/2023 08:22:11 07/27/19 24 07/28/2023 COMP. METAB OLIC PANEL (14) alkaline phosphatase 109 IU/L 44-121 Not Available [facility] ([facility]) [address] [facility] [place], [address], 07/28/2023 08:22:11 07/27/19 24 07/28/2023 COMP. METAB OLIC PANEL (14) AST (SGOT) 35 IU/L 0-40 Not Available [facility] ([facility]) [address] [place], [address], 07/28/2023 08:22:11 07/27/19 24 07/28/2023 COMP. METAB OLIC PANEL (14) ALT (SGPT) 34 IU/L 0-44 Not Available [facility] ([facility]) [address] [place], [address], 07/28/2023 08:22:11 07/27/19 24 07/28/2023 LIPID PANEL cholesterol, total 220 mg/dL 100-19 9 above high normal Not Available [facility] ([facility]) [address] [place], [address], 07/28/2023 08:22:12 07/27/19 24 07/28/2023 LIPID PANEL triglyceride s 166 mg/dL 0-149 above high normal Not Available [facility] ([facility]) [address] [place], [address], 07/28/2023 08:22:12 07/27/19 24 07/28/2023 LIPID PANEL HDL cholesterol 51 mg/dL >39 Not Available [facility] ([facility]) [address] [facility], [place], [address], 07/28/2023 08:22:12 07/27/19 24 07/28/2023 LIPID PANEL VLDL cholesterol malcolm 30 mg/dL 5-40 Not Available [facility] ([facility]) [address] [place], [address], 07/28/2023 08:22:12 07/27/19 24 07/28/2023 LIPID PANEL LDL chol calc ([facility]) 139 mg/dL 0-99 above high normal Not Available [facility] ([facility]) [address] [place], [address], 07/28/2023 08:22:12 07/27/19 24 07/28/2023 LIPID PANEL comment: CAMPAIGN COORDINATOR Not Available [facility] ([facility]) [address] [facility], [place], [address], 07/28/2023 08:22:12 07/27/19 24 07/28/2023 HEMOG LOBIN A1C hemoglobin A1C 8.2 % 4.8-5. 6 above high normal Predi abete s: 5.7 - 6.4 Diabe nathaile: >6.4 Glyce deepa contr ol for adult s with diabe nathalie: <7.0 Not Available [facility] ([facility]) [address] [facility], [place], [address], 07/28/2023 08:22:12 07/27/19 24 07/28/2023 PROST ATE-S PECIF IC AG prostate specific Ag 0.2 NG/mL 0.0-4. 0 Aditya ECLIA metho dolog y. Accor ding to the Ameri can [employer] g[employer] iatio n, Serum PSA shoul d decre ase and remai n at undet ectab le level s after radic al prost atect zahra. The AUA defin es bioch emica l recur rence as an initi al PSA value 0.2 ng/mL or great er follo wed by a subse quent confi rmato ry PSA value 0.2 ng/mL or great er. Value s obtai kaleb with diffe rent assay metho ds or kits canno t be used inter [place] . Resul ts canno t be inter prete d as absol [place] evide nce of the prese nce or absen ce of dang nolasco . Not Available [facility] ([facility]) [address] [facility], [place], [address], 07/28/2023 08:22:13 07/27/19 24 07/27/2023 micro album in/cr eatin ine, mass ratio , urine Microalbumin 30 Not Available Hoyletonem osullivan [address], [address], 07/27/2023 09:42:43 07/27/19 24 07/27/2023 micro album in/cr eatin ine, mass ratio , urine Creatinine 50 Not Available Mantuamartha gallo [address], [address], 07/27/2023 09:42:43 07/27/19 24 07/27/2023 micro album in/cr eatin ine, mass ratio , urine Ratio 30-300 Not Available [address], [address], 07/27/2023 09:42:43 08/16/19 24 08/17/2023 ALBUM IN/CR EATIN INE RATIO ,URIN E creatinine, urine 65.1 mg/dL not estab. Not Available [facility] ([facility]) [address] [facility], [place], [address], 08/17/2023 10:14:20 08/16/19 24 08/17/2023 ALBUM IN/CR EATIN INE RATIO ,URIN E albumin, urine 17.7 ug/mL not estab. Not Available [facility] ([facility]) [address] [facility], [place], [address], 08/17/2023 10:14:20 08/16/19 24 08/17/2023 ALBUM IN/CR EATIN INE RATIO ,URIN E alb/creat ratio 27 mg/g_ creat 0-29 Mónica l: 0 - 29 Moder ately incre ased: 30 - 300 Sever gia incre ased: >300 Not Available [facility] ([facility]) [address], [place], [address], 08/17/2023 10:14:20 04/03/20 CT, head, w/o contr ast No observ ation record ed. [email or web address] [address] , [place], [address], 04/03/2022 10:39:05 04/24/20 24 04/24/2024 XR, hip, unila teral , 2 or 3 view No observ ation record ed. [email or web address] , [place], [address], 04/24/2024 15:08:39 Result Notes None recorded. Problems Name Problem SNOMED Code Status Onset Date Resolution Date Notes Provider Name and Address Organization Details Recorded Time History of myocardia l infarctio n 201612719 Active 2016 Norma cesar null, [place] - [facility] 7 09:48:06 Dyslipide guille 782674349 Active 2017 Norma cesar null, [place] - [facility] 8 10:06:50 Mixed hyperlipi demia 191084030 Active 2015 Kelli camarena, [place] - [facility] 6 12:31:41 Chronic back pain 915778674 Active 2015 Kelli camarena, [place] - [facility] 6 12:31:51 Pain of multiple joints 09303155 Active 2015 Kelli camarena, [place] - [facility] 6 12:32:13 Essential hypertens ion 53671321 Active 2015 LES Siu - [facility] 6 12:32:22 Hypothyro idism 40620572 Completed 201507/29/2016 LES Siu - [facility] 7 12:36:06 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 39555514 Active 2015 Be camarena, LES - [facility] 6 13:17:32 Coronary atheroscl erosis 293725283 Active 2015 Be camarena, LES - [facility] 6 13:17:53 Injury of head 80717326 Active 2021 Bernice Candelario PA-C [address], [place], [address] , [place] - [facility] 2 08:46:58 Renewal of prescript ion Completed 201505/28/2017 Norma cesar nicol, L[place] - [facility] 8 08:53:28 Type 2 diabetes mellitus without complicat ion 943304085 Active 2015 Kelli camarena, LES - [facility] 6 14:39:14 Stented coronary artery 160017132 Active 2015 Be camarena, LES - [facility] 6 15:09:46 Foot eczema 399009183 Active 2016 LES Bernal - [facility] 7 14:20:51 Delay when starting to pass urine 3178371 Active 2016 LES Siu - [facility] 7 12:35:39 Acquired hypothyro idism 621968101 Active 2016 Kelli camarena, LES - [facility] 7 12:36:22 Severe obesity 09208738177 104 Active 2016 LES Bernal - [facility] 7 08:00:34 Problem Notes None recorded. Procedures Surgical History Date Name Laterality Status Provider Name and Address Organization Details Recorded Time 07/27/19 24 Advance Care Planning completed Allan Yanez [place] - [facility] 07/27/2023 07:31:34 07/27/19 24 Functional Status Assessed completed Allan Yanez [place] - [facility] 07/27/2023 07:31:34 04/26/19 23 Colonoscopy completed Allan Yanez [place] - [facility] 07/27/2023 09:30:43 09/29/19 18 Skin Lesion/Tag Removal- SS completed Kelli Warren [place] - [facility] 09/28/2017 20:06:23 Cardiac Cath completed Kelli Warren [place] - [facility] 02/26/2016 20:02:45 Stent, coated/cov w/del sys completed Kelli Warren [place] - [facility] 02/26/2016 20:03:29 Bowel Resection completed Kelli [place] - [facility] 02/26/2016 20:04:20 Gastrointestinal Surgery completed Allan Yanez [place] - [facility] 07/27/2023 09:30:43 Cardiac Surgery completed Allan Yanez [place] - [facility] 07/27/2023 09:30:43 Thyroid Surgery completed Allan Yanez [place] - [facility] 07/27/2023 09:30:43 Echocardiography contrast completed Be Hendricks [place] - [facility] 02/05/2017 13:58:47 Imaging Results None recorded. Procedure Notes None recorded. Medical Equipment None Reported. Allergies Allergen ID Allergen Name Allergen Category Reaction Reaction Severity Criticality Documentation Date Start Date Code Code System Note Provider Name and Address Organization Details Recorded Time 89458 simvastat in medicatio n myalgias (muscle pain) Not available Not available 01/31/20162012 08775 RxNorm React ion: SEVER E MYALG IA; Not Available [facility] 6 09:04:49 61292 Trilipix medicatio n myalgias (muscle pain) Not available Not available 01/31/20162012 37752 4 RxNorm React ion: sever e myalg ia; Not Available [facility] 6 09:04:49 74817 Non-stero idal anti-infl ammatory agent (product) medicatio n irregular heart rate Not available Not available 01/31/20162008 25826 005 SNOMED React ion: cardi ac probl ems; Not Available [facility] 6 09:04:49 Medications Name Sig Start Date Stop Date Status Note LastModified by Organization Details LastModified Time Prescript ion - Renewal 10/06 completed RX Not Available Not Available Not Available Prescript ion - New 06/30 completed Not Available Not Available Not Available fluoxetin e 40 mg capsule TAKE 1 CAPSULE DAILY 04/03 completed Not Available Not Available Not Available cyclobenz aprine 10 mg tablet take 1 tablet by oral route 3 times a day as needed for 30 days 05/14 completed cycloben zaprine 10 mg oral tablet;P rescribe Status: Prescrib ed on: 09/07/19 14 1:39PM;D iscontin ued Status: Disconti nued on: 05/14/19 15 6:18PM;U ser: neuss;Es t. Completi on: 10/07/19 14;Indic ation: Muscle Spasm - (13.7288 50);Phar macyVeri fied: 09/07/19 14 1:39PM Not Available Not Available Not Available furosemid e 40 mg tablet take 1 tablet (40 mg) by oral route once daily for 30 days 05/14 completed furosemi de 40 mg oral tablet;P rescribe Status: Prescrib ed on: 06/21/19 14 9:41AM;D iscontin ued Status: Disconti nued on: 05/14/19 15 6:18PM;U ser: neuss;Es t. Completi on: 12/19/19 14;Pharm acyVerif ied: 06/21/19 14 9:41AM Not Available Not Available Not Available metformin 500 mg tablet 02/24 completed Not Available Not Available Not Available Augmentin 875 mg-125 mg tablet take 1 tablet by oral route every 12 hours for 10 days 07/31 completed Augmenti n 875-125 mg oral tablet;R ecorded Status: Recorded on: 06/14/19 09 11:31AM; Disconti nued Status: Disconti nued on: 08/01/19 09 3:11PM;U ser: grossert ;Est. Completi on: 07/15/19 09;Indic ation: Acute Bacteria l Sinusiti s - (08.4619 00);Prin shay: 06/14/19 09 Not Available Not Available Not Available levothyro xine 175 mcg tablet TAKE 1 TABLET EVERY DAY 04/03 completed Not Available Not Available Not Available Altace 5 mg capsule take 1 capsule (5 mg) by oral route once daily 09/27 completed Altace 5 mg oral capsule; Recorded Status: Recorded on: 12/30/19 12 10:53AM; Disconti nued Status: Disconti nued on: 09/28/19 13 12:43PM; User: soco;Arianna t. Completi on: 06/28/19 13;Indic ation: Hyperten mary - (114) Not Available Not Available Not Available prednison e 10 mg tablet 04/03 completed Not Available Not Available Not Available doxycycli ne hyclate 100 mg capsule take 1 capsule (100 mg) by oral route 2 times per day for 14 days 04/03 completed Not Available Not Available Not Available Depo-Medr ol 40 mg/mL suspensio n for injection Take 40 mg by injectio n route. 01/26 completed Not Available Not Available Not Available Drisdol 1,250 mcg (50,000 unit) capsule take 1 capsule (50,000 unit) by oral route once weekly 05/14 completed Drisdol 50,000 unit oral capsule; Recorded Status: Recorded on: 11/22/19 11 6:36PM;D iscontin ued Status: Disconti nued on: 05/14/19 15 6:19PM;U ser: bishopk; Indicati on: Vitamin D Deficien cy - (903) Not Available Not Available Not Available azithromy oscar 250 mg tablet TAKE TWO (2) TABLETS (500 MG) BY ORAL ROUTE ONCE DAILY FOR ONE (1) DAY, THEN TAKE ONE (1) TABLET (250 MG) DAILY FOR FOUR (4) DAYS. active Not Available Not Available No t Available pravastat in 40 mg tablet TAKE ONE TABLET BY MOUTH EVERY DAY active Not Available Not Available No t Available valacyclo vir 1 gram tablet Take 1 tablet every 8 hours by oral route for 7 days. 07/26 completed Not Available Not Available Not Available Keflex 500 mg capsule take 1 capsule by oral route 3 times a day for 8 days 11/24 completed Keflex 500 mg oral capsule; Prescrib e Status: Prescrib ed on: 10/26/19 14 10:00AM; Disconti nued Status: Disconti nued on: 12/20/19 14 3:17PM;U ser: neuss;Es t. Completi on: 11/03/19 14;Pharm acyVerif ied: 10/26/19 14 10:00AM Not Available Not Available Not Available Vicodin ES 7.5 mg-750 mg tablet 1/2-1 po q 8-12 hour prn 06/02 completed Vicodin ES 7.5-750 mg oral tablet;R ecorded Status: Recorded on: 12/04/19 11 5:27PM;D iscontin ued Status: Disconti nued on: 06/02/19 12 10:03AM; User: neuss;Es t. Completi on: 02/02/20 11;Indic ation: Pain - (16.7809 00) Not Available Not Available Not Available prednison e 20 mg tablet qdx7 11/24 completed Not Available Not Available Not Available betametha sone, augmented 0.05 % topical cream apply a thin layer to the affected area(s) by topical route once daily 05/22 completed Not Available Not Available Not Available prednison e 5 mg tablet Take 1 tablet every day by oral route for 5 days. active Not Available Not Available No t Available clobetaso l 0.05 % topical cream APPLY topicall y TWICE DAILY active Not Available Not Available No t Available Biaxin 500 mg tablet take 1 tablet (500 mg) by oral route 2 times per day for 10 days 01/10 completed Biaxin 500 mg oral tablet;R ecorded Status: Recorded on: 09/04/19 10 1:07PM;D iscontin ued Status: Disconti nued on: 01/11/20 10 4:44PM;U ser: neuss;Es t. Completi on: 09/14/19 10 Not Available Not Available Not Available metronida zole 500 mg tablet 07/07 completed Not Available Not Available Not Available clopidogr el 75 mg tablet TAKE ONE TABLET BY MOUTH EVERY DAY active Not Available Not Available No t Available ciproflox acin 500 mg tablet 07/07 completed Not Available Not Available Not Available hydrocodo ne 10 mg-acetam inophen 325 mg tablet Take 1 tablet twice a day by oral route as needed. 07/26 completed Not Available Not Available Not Available aspirin 81 mg tablet,de layed release one po every day 04/03 completed Not Available Not Available Not Available simvastat in 40 mg tablet take 1 tablet (40 mg) by oral route once daily in the evening 03/21 completed simvasta tin 40 mg oral tablet;R ecorded Status: Recorded on: 12/30/19 12 10:54AM; Disconti nued Status: Disconti nued on: 03/21/20 13 12:05PM; User: soco;Es t. Completi on: 01/29/20 12;Indic ation: Mixed Hyperlip idemia - (923065 ) Not Available Not Available Not Available glimepiri de 2 mg tablet active Not Available Not Available Not Available Depo-Medr ol 80 mg/mL suspensio n for injection Take 80 mg by injectio n route. 01/26 completed Not Available Not Available Not Available bisoprolo l fumarate 5 mg tablet 08/25 completed Not Available Not Available Not Available Celebrex 200 mg capsule take 1 capsule (200 mg) by oral route once daily 06/02 completed Celebrex 200 mg oral capsule; Recorded Status: Recorded on: 08/06/19 11 9:54AM;D iscontin ued Status: Disconti nued on: 06/02/19 12 10:03AM; User: soco;Es t. Completi on: 02/02/20 11;Indic ation: Osteoart hritis - (62.8838 69) Not Available Not Available Not Available pravastat in 10 mg tablet Take 0.5 tablets every day by oral route in the evening. 04/03 completed Not Available Not Available Not Available Lortab 10 mg-500 mg tablet tid prn 09/19 completed Lortab 10-500 mg oral tablet;R ecorded Status: Recorded on: 03/21/20 13 1:04PM;D iscontin ued Status: Disconti nued on: 09/20/19 14 11:13AM; User: neustacia;Es t. Completi on: 06/19/19 14;Indic ation: Pain - (16.7809 00) Not Available Not Available Not Available Altace 10 mg capsule take 1 capsule by oral route daily 06/21 completed Altace 10 mg oral capsule; Prescrib e Status: Prescrib ed on: 03/21/20 13 12:06PM; Disconti nued Status: Disconti nued on: 06/21/19 14 9:40AM;U ser: neuss;Es t. Completi on: 09/18/19 14;Pharm acyVerif ied: 03/21/20 13 12:06PM Not Available Not Available Not Available trazodone 100 mg tablet take 1 tablet by oral route daily for 30 days 06/02 completed trazodon e 100 mg oral tablet;R ecorded Status: Recorded on: 02/25/20 11 12:51PM; Disconti nued Status: Disconti nued on: 06/02/19 12 10:03AM; User: kerwin; Est. Completi on: 05/25/19 12 Not Available Not Available Not Available OneTouch Ultra Test strips test qd-250.0 0 active Not Available Not Available No t Available meclizine 25 mg tablet 04/03 completed Not Available Not Available Not Available gemfibroz il 600 mg tablet take 1 tablet by oral route 2 times a day for 90 days 06/23 completed Not Available Not Available Not Available paroxetin e 20 mg tablet TAKE ONE TABLET BY MOUTH DAILY FOR depressi on active Not Available Not Available No t Available pantopraz ole 40 mg tablet,de layed release take 1 tablet by oral route 2 times a day 06/30 completed Not Available Not Available Not Available erythromy oscar 5 mg/gram (0.5 %) eye ointment APPLY 1 CM RIBBON INTO THE LOWER CONJUNCT IVAL SAC(S) IN THE AFFECTED EYE(S) BY OPHTHALM IC ROUTE 3 TIMES PER DAY 11/24 completed Not Available Not Available Not Available oseltamiv ir 75 mg capsule Take 1 capsule every day by oral route for 10 days. 07/07 completed Not Available Not Available Not Available metformin 1,000 mg tablet TAKE ONE TABLET BY MOUTH TWICE DAILY active Not Available Not Available No t Available ranitidin e 150 mg tablet 08/25 completed Not Available Not Available Not Available levothyro xine 150 mcg tablet TAKE ONE TABLET BY MOUTH EVERY DAY FOR thyroid active Not Available Not Available No t Available indometha oscar 50 mg capsule take 1 capsule (50 mg) by oral route 3 times per day with food per gout flares active Not Available Not Available No t Available nitroglyc shiv 0.4 mg sublingua l tablet DISSOLVE 1 TABLET UNDER THE TONGUE EVERY 5 MINUTES NEEDED FOR CHEST PAIN. DO NOT EXCEED A TOTAL OF 3 DOSES IN 15 MINUTES. active Not Available Not Available No t Available aspirin 81 mg chewable tablet Chew 8 tablets every day by oral route as directed . 01/26 completed Not Available Not Available Not Available diclofena c sodium 75 mg tablet,de layed release take 1 tablet (75 mg) by oral route 2 times per day for 30 days 07/24 completed diclofen ac sodium 75 mg oral tablet,d elayed release (DR/EC); Recorded Status: Recorded on: 10/31/19 09 11:11AM; Disconti nued Status: Disconti nued on: 07/25/19 10 3:51PM;U ser: keefk;Es t. Completi on: 11/30/19 09;Indic ation: Osteoart hritis - (13.7159 00);Prin shay: 10/31/19 09 Not Available Not Available Not Available Protopic 0.03 % topical ointment APPLY A THIN LAYER TO THE AFFECTED AREA(S) BY TOPICAL ROUTE 2 TIMES PER DAY ; RUB IN GENTLY AND COMPLETE LY 02/24 completed Not Available Not Available Not Available Cortispor in 3.5 mg/mL-10, 000 unit/mL-1 % ear solution instill 4 drops into left ear by otic route 3 times per day for 7 days 06/14 completed Cortispo rin 3.5-10,0 00-1 mg/mL-un it/mL-% otic solution ;Recorde d Status: Recorded on: 01/24/20 08 1:44PM;D iscontin ued Status: Disconti nued on: 06/14/19 09 10:54AM; User: binu; Est. Completi on: 01/31/20 08;Indic ation: Otitis Externa - (2203 00);Prin shay: 01/24/20 08 Not Available Not Available Not Available levothyro xine 200 mcg tablet take 1 tablet (200 mcg) by oral route once daily for 30 days 07/01 completed levothyr oxine 200 mcg oral tablet;R ecorded Status: Recorded on: 12/30/19 12 10:53AM; Disconti nued Status: Disconti nued on: 07/02/19 13 3:59PM;U ser: neuss;Es t. Completi on: 01/29/20 12;Indic ation: Hypothyr oidism - (3809 ) Not Available Not Available Not Available alcohol swabs active Not Available Not Available Not Available pravastat in 20 mg tablet TAKE 1 TABLET AT BEDTIME 04/03 completed Not Available Not Available Not Available clobetaso l 0.05 % topical ointment APPLY A THIN LAYER TO THE AFFECTED AREA(S) BY TOPICAL ROUTE 2 TIMES PER DAY 11/24 completed Not Available Not Available Not Available Viagra 100 mg tablet take 1 tablet (100 mg) by oral route once daily as needed approxim ately 1 hour before sexual activity for 10 days 02/11 completed Viagra 100 mg oral tablet;R ecorded Status: Recorded on: 10/25/19 12 1:00PM;U ser: neuss;Es t. Completi on: 02/12/20 12;Indic ation: Erectile Dysfunct ion - (8990 40) Not Available Not Available Not Available testoster one cypionate 200 mg/mL intramusc ular oil 0.5cc q week 10/19 completed testoste jacob cypionat e 200 mg/mL intramus cular oil;West rded Status: Recorded on: 12/24/19 13 3:00PM;U ser: neuss;Es t. 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 08/25 completed Not Available Not Available Not Available lisinopri l 40 mg tablet TAKE 1/2 TABLET BY MOUTH EVERY DAY FOR BLOOD PRESSURE active Not Available Not Available No t Available cefdinir 300 mg capsule 04/03 completed Not Available Not Available Not Available diazepam 5 mg tablet 04/03 completed Not Available Not Available Not Available oxycodone 5 mg tablet TAKE ONE TABLET BY MOUTH TWICE DAILY NEEDED FOR PAIN active Not Available Not Available No t Available Blood Glucose Monitorin g kit use qd to check blood glucose- -250.00 06/27 completed Blood Glucose Monitori ng miscella neous kit;Pres cribe Status: Prescrib ed on: 07/12/19 15 9:15AM;D iscontin ued Status: Disconti nued on: 06/28/19 16 8:28AM;U ser: melissa Douglas Completi on: 04/05/20 17;Pharm acyVerif ied: 07/12/19 15 9:15AM Not Available Not Available Not Available ezetimibe 10 mg tablet TAKE ONE TABLET BY MOUTH DAILY FOR high choleste rol active Not Available Not Available No t Available Testim 50 mg/5 gram (1 %) transderm al gel apply 50 mg by topical route once daily (1 tube = 50 mg) 06/02 completed Testim 50 mg/5 gram (1 %) transder mal gel;West rded Status: Recorded on: 11/22/19 11 6:38PM;D iscontin ued Status: Disconti nued on: 06/02/19 12 10:03AM; User: melissa Pascualti on: Male Hypogona dism - () Not Available Not Available Not Available Vytorin 10 mg-20 mg tablet take 1 tablet by oral route once daily 12/29 completed Vytorin 10-20 10-20 mg oral tablet;R ecorded Status: Recorded on: 07/25/19 10 3:51PM;D iscontin ued Status: Disconti nued on: 12/30/19 12 10:54AM; User: melissa Pascualti on: Mixed Hyperlip idemia - () Not Available Not Available Not Available Vytorin 10 mg-40 mg tablet one po every day 07/31 completed Vytorin 10-40 10-40 mg oral tablet;R ecorded Status: Recorded on: 01/15/20 08 10:33PM; Disconti nued Status: Disconti nued on: 08/01/19 09 3:11PM;U ser: kerwin Not Available Not Available Not Available AndroGel 1 % 12.5 mg/1.25 gram per pump actuation transderm al gel apply 5 gram by topical route once daily to clean dry skin of shoulder and upper arm and/or abdomen 11/21 completed AndroGel 1.25 gram/ actuatio n (1 %) transder mal gel in metered- dose pump;Rec orded Status: Recorded on: 04/10/20 09 9:52AM;D iscontin ued Status: Disconti nued on: 11/22/19 11 6:38PM;U ser: melissa EstEdwar Completi on: 07/09/19 10;Indic ation: 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 Completi on: 03/17/20 15;Indic ation: Chronic Musculos keletal Pain - (13.7291 05) Not Available Not Available Not Available prednison e increasi ng/decre asing dosage 09/27 completed predison e 5 mg.;West rded Status: Recorded on: 01/24/20 12 8:50PM;D iscontin ued Status: Disconti nued on: 09/28/19 13 12:43PM; User: poonam Est. Completi on: 01/30/20 12;Indic ation: bvack - (-5) Not Available Not Available Not Available Flexeril one tid 09/19 completed flexeril 10 mg.;West rded Status: Recorded on: 01/24/20 12 8:50PM;D iscontin ued Status: Disconti nued on: 09/20/19 14 10:26AM; User: poonam Douglas Completshola on: 02/03/20 12;Indic ation: back - (-5) Not Available Not Available Not Available Ranexa 500 mg tablet,ex tended release Take 1 tablet twice a day by oral route. 04/03 completed Not Available Not Available Not Available Bystolic 10 mg tablet take 1 tablet (10 mg) by oral route once daily for 30 days 05/23 completed Bystolic 10 mg oral tablet;R ecorded Status: Recorded on: 12/10/19 12 9:27AM;D iscontin ued Status: Disconti nued on: 05/23/19 14 9:39AM;U ser: neuss;Es t. Completi on: 11/05/19 13;Indic ation: [facility] Hyperten mary - (401.9) Not Available Not Available Not Available Trilipix 135 mg capsule,d elayed release take 1 capsule (135 mg) by oral route once daily for 30 days 03/21 completed Trilipix 135 mg oral capsule, delayed release( /EC);P rescribe Status: Prescrib ed on: 01/03/20 13 7:49PM;D iscontin ued Status: Disconti nued on: 03/21/20 13 12:05PM; User: soco;Arianna santiago Completshola on: 05/02/19 14;Pharm acyVerif ied: 01/03/20 13 7:49PM Not Available Not Available Not Available GaviLyte- G 236 gram-22.7 4 gram-6.74 gram-5.86 gram oral solution active Not Available Not Available Not Available Livalo 2 mg tablet take 1 tablet (2 mg) by oral route once daily at bedtime for 30 days 05/14 completed Livalo 2 mg oral tablet;P rescribe Status: Prescrib ed on: 10/12/19 14 11:28AM; Disconti nued Status: Disconti nued on: 05/14/19 15 6:18PM;U ser: soco;Arianna Jacksoni on: 04/09/20 14;Indic ation: Hypercho lesterol emia - (0 00);Phar macyVeri fied: 10/12/19 14 11:28AM Not Available Not Available Not Available Accu-Chek FastClix Lancing Device TEST BLOOD SUGAR EVERY DAY diagnosi s e11.9 04/03 completed Not Available Not Available Not Available Accu-Chek SmartView Control Solution use to check glucose qd E11.09 04/03 completed Not Available Not Available Not Available Lancets,T hin 28 gauge use qd with testing- -250.00 07/05 completed Lancets, Thin 28 gauge miscella neous misc;Pre scribe Status: [facility] ed on: 07/12/19 15 12:47PM; User: soco;Arianna santiago Completi on: 07/06/19 16;Pharm acyVerif ied: 07/12/19 15 12:47PM Not Available Not Available Not Available Jardiance 25 mg tablet TAKE ONE (1) TABLET EVERY DAY BY ORAL ROUTE FOR 90 DAYS. 2024 active Not Available Not Available Not Avai lable Praluent Pen 150 mg/mL subcutane ous pen injector Inject 1 mL every 2 weeks by subcutan eous route. 06/30 completed Not Available Not Available Not Available Repatha SureClick 140 mg/mL subcutane ous pen injector 06/30 completed Not Available Not Available Not Available Accu-Chek Fastclix Lancet Drum TEST BLOOD SUGAR EVERY DAY 04/03 completed Not Available Not Available Not Available OneTouch Ultra2 Meter use to test blood sugar active Not Available Not Available No t Available OneTouch Delica Plus Lancet 33 gauge active Not Available Not Available Not Available Vitals Date Recorded Respiratory rate Body height Body mass index (BMI) Body weight Body temperature Heart rate Oxygen saturation Oxygen saturation in Arterial blood by Pulse oximetry Systolic And Diastolic Provider Name and Address Organization Details Last Updated DateTime 4 14 /min 182.88 cm 37.8 kg/m2 669691. 27 g 98.7 [degF] 94 /min 96 % 96 % 128/64 mm[Hg] Jeffelis [facility] 4 13:03:50 Date Recorded Body height Body mass index (BMI) Body weight Respiratory rate Body temperature Heart rate Oxygen saturation Oxygen saturation in Arterial blood by Pulse oximetry Systolic And Diastolic Provider Name and Address Organization Details Last Updated DateTime 4 182.88 cm 37.7 kg/m2 042242. 68 g 14 /min 98.5 [degF] 86 /min 96 % 96 % 126/80 mm[Hg] Jefftatyanadaliajulianne Roberts [facility] 4 09:35:01 Date Recorded Body height Body mass index (BMI) Body weight Body temperature Heart rate Oxygen saturation Oxygen saturation in Arterial blood by Pulse oximetry Respiratory rate Systolic And Diastolic Provider Name and Address Organization Details Last Updated DateTime 8 182.88 cm 38.4 kg/m2 798211. 64 g 98.2 [degF] 68 /min 96 % 96 % 18 /min 132/76 mm[Hg] [facility] 8 14:38:47 Date Recorded Body mass index (BMI) Body weight Heart rate Respiratory rate Systolic And Diastolic Provider Name and Address Organization Details Last Updated DateTime 01/26/2018 39.5 kg/m2 642287.3 8 g 96 /min 18 /min 110/72 mm[Hg] Kelli Warren [facility] 8 13:44:47 Date Recorded Body height Provider Name an d Address Organization Details Last Updated DateTime 01/26/2018 182.88 cm Sammie Carrasquillo [place] - [facility] 018 13:34:42 Date Recorded Respiratory rate Body weight Body temperature Heart rate Oxygen saturation Oxygen saturation in Arterial blood by Pulse oximetry Provider Name and Address Organization Details Last Updated DateTime 2 16 /min 752920. 68 g 98.8 [degF] 92 /min 95 % 95 % Zoey Andrew [place] - [facility] 2 08:36:17 Social History Question Answer Notes LastModified by Organizat ion Details LastModified Time Tobacco Smoking Status Former Smoker Kelli [place], [place] - [facility] 02/26/2016 20:01:10 How Many Years Have You Consumed Alcohol? 50 [email or web address] Information not available 07/27/2023 Is Blood Transfusion Acceptable In An Emergency? Yes [email or web address] Information not available 07/27/2023 What Is Your Level Of Caffeine Consumption? Moderate [email or web address] Information not available 07/27/2023 How Much Tobacco Do You Chew? None Information not available 07/27/2023 In The 14 Days Before Symptom Onset, Have You Had Close Contact With A Laboratory-confirm ed COVID-19 While That Case Was Ill? No Information n ot available 07/27/2023 In The 14 Days Before Symptom Onset, Have You Had Close Contact With A Person Who Is Under Investigation For COVID-19 While That Person Was Ill? No [email or web address] Information not available 07/27/2023 Have You Been To An Area Known To Be High Risk For COVID-19? No [email or web address] Information not available 07/27/2023 Are You Deaf Or Do You Have Serious Difficulty Hearing? Yes [email or web address] Information not available 07/27/2023 Which Illicit Or Recreational Drugs Have You Used? Never [email or web address] Information not available 02/26/2016 Have You Processed Blood Or Body Fluids From An Ebola Virus Disease Patient Without Appropriate PPE? No [email or web address] Information not available 07/27/2023 Do You Reside In Or Have You Traveled To An Area Where Ebola Virus Transmission Is Active? No [email or web address] Information not available 07/27/2023 What Is The Highest Grade Or Level Of School You Have Completed Or The Highest Degree You Have Received? [id number] [email or web address] Information not available 07/27/2023 When Did You Quit Smoking? 16+yearssince lastcigarette [email or web address] Information not available 04/03/2022 Hard Of Hearing Or Deaf In One Or Both Ears? No [email or web address] Information not available 02/26/2016 Have You Recently Or Are You Planning To Travel To An Area With Zika Virus? No [email or web address] Information not available 07/27/2023 How Many Years Have You Used Illicit Or Recreational Drugs? 0 [email or web address] Information not available 07/27/2023 Legally Blind In One Or Both Eyes? No [email or web address] Information no t available 02/26/2016 What Was The Date Of Your Most Recent Tobacco Screening? 07/27/2023 [email or web address] Information not available 07/27/2023 What Is Your Relationship Status? [email or web address] Information not available 02/26/2016 Do You Use Your Seat Belt Or Car Seat Routinely? Yes [email or web address] Information not available 07/27/2023 Are You Sexually Active? No [email or web address] Information not available 07/27/2023 Smoke Alarm In Home Yes [email or web address] Information not available 02/26/2016 Do You Have Smoke And Carbon Monoxide Detectors In Your Home? Yes [email or web address] Information not available 07/27/2023 At What Age Did You Start Smoking Tobacco? 17 [email or web address] Information not available 07/27/2023 Are You Passively Exposed To Smoke? No [email or web address] Information no t available 07/27/2023 General Stress Level Low [email or web address] Information not available 02/26/2016 Do You Use Sunscreen Routinely? No [email or web address] Information not available 07/27/2023 Has Tobacco Cessation Counseling Been Provided? Yes Information not available 07/27/2023 On What Date Was Tobacco Cessation Counseling Provided? 07/27/2023 Information not available 07/27/2023 How Many Years Have You Smoked Tobacco? 30 [email or web address] Information not available 07/27/2023 Sex: Male Functional Status Question Answer Note LastModified by Organizat ion Details LastModified Time Do you use any illicit or recreational drugs? No [id number] Information not available 07/27/2023 Do you or have you ever used any other forms of tobacco or nicotine? No [email or web address] Information not available 07/27/2023 What is your level of alcohol consumption? Moderate [email or web address] Information not available 07/27/2023 Do you or have you ever used smokeless tobacco? Never used smokeless tobacco [email or web address] Information not available 07/27/2023 Are you currently employed? No [email or web address] Information not available 02/26/2016 Are you able to care for yourself? Yes [email or web address] Information not available 02/26/2016 What is your occupation? disabled [email or web address] Information not available 02/26/2016 What is your exercise level? Occasional [email or web address] Information not available 02/26/2016 Mental Status Question Answer Note LastModified by Organization D etails LastModified Time Do you feel stressed (tense, restless, nervous, or anxious, or unable to sleep at night)? [id number] [email or web address] Information not available 07/27/2023 Family History Relationship Description Onset Age of this Age Resolved Age Notes LastModified by Organization Details LastModified Time Mother Cataract [email or web address] Not available 07/27/2023 09:26:27 Mother Diabetes mellitus [email or web address] Not available 2015 19:58:31 Maternal Grandmother Cerebrovascu lar accident [email or web address] Not available 05/2015 19:58:16 Brother Hypertensive disorder [email or web address] Not available 2015 19:58:52 Brother Kidney stone [email or web address] Not avail able 07/27/2023 09:26:27 Brother Carcinoma of prostate [email or web address] Not available 2023 09:26:27 Father Hypertensive disorder [email or web address] Not available 2015 19:58:52 Father Myocardial infarction 50 aunt and uncle [email or web address] Not available 07/27/2023 09:26:28 Medical History Condition Response Gout Y Ear or Hearing Problems Y Diabetes Y Muscle, Joint, or Bone Problems Y Arthritis Y Hypercholesterolemia Y Liver Disease Y Heart Disease Y Hypertension Y Immunizations Vaccine Type Date Status Note Provider Nam e and Address Organization Details Recorded Time Influenza, split virus, quadrivalent, PF 6 completed Not Available [facility] 03:54:17 influenza, unspecified formulation 9 completed Zoey Andrew null, [place] - [facility] 04/03/2022 08:33:12 influenza, unspecified formulation 2 completed Zoey [place], [place] - [facility] 04/03/2022 08:33:12 influenza, unspecified formulation 3 completed Zo[place] [facility] 04/03/2022 08:33:11 influenza, unspecified formulation 4 completed [place] [facility] 04/03/2022 08:33:11 influenza, unspecified formulation 5 completed Zoey [place] [facility] 04/03/2022 08:33:12 influenza, unspecified formulation 0 completed Zoey Andrew [place], [place] - [facility] 04/03/2022 08:33:12 pneumococcal polysaccharide PPV23 4 completed Not Available [facility] 05/27/2019 02:21:58 Influenza, split virus, quadrivalent, preservative 7 completed [place] [facility] 04/03/2022 08:33:12 Influenza, split virus, trivalent, PF 2 completed [place] [facility] 04/03/2022 08:33:11 Influenza, high-dose, trivalent, PF 1 completed [place] [facility] 04/03/2022 08:33:12 COVID-19, mRNA, LNP-S, PF, 100 mcg/0.5mL dose or 50 mcg/0.25mL dose 1 completed Zoey [place], [place] - [facility] 04/03/2022 08:33:12 Influenza, high-dose, trivalent, PF 0 completed [place] [facility] 04/03/2022 08:33:12 pneumococcal polysaccharide PPV23 0 completed [place]ey [place] [facility] 04/03/2022 08:33:12 Influenza, split virus, trivalent, preservative 3 completed [place]ey [place] [facility] 04/03/2022 08:33:12 COVID-19, mRNA, LNP-S, PF, 100 mcg/0.5mL dose or 50 mcg/0.25mL dose 1 completed [place] [facility] 04/03/2022 08:33:12 Tdap 5 completed [place] [facility] 04/03/2022 08:33:12 Influenza, split virus, quadrivalent, PF 7 completed [place] [facility] 04/03/2022 08:33:12 Influenza, high-dose, quadrivalent, PF 2 completed [place] [facility] 04/03/2022 08:33:12 Td (adult), 2 Lf tetanus toxoid, preservative free, adsorbed 7 completed [place] [facility] 04/03/2022 08:33:12 Influenza, high-dose, quadrivalent, PF 4 completed Allan Yanez null, [facility] 12:49:12 Past Encounters Encounter ID Performer Location Encounter Start Date Encounter Closed Date Diagnosis/Indication Diagnosis SNOMED-CT Code Diagnosis ICD10 Code Diagnosis Note [id number] [facility] [address] [place] [address] 08/05/2010 00:00:00 [id number] [facility] [address] [place] [address] 11/21/2010 00:00:00 [id number] [facility] [address] [place] [address] 01/06/2011 00:00:00 [id number] [facility] [address] [place] [address] 03/03/2011 00:00:00 [id number] [facility] [address] [place] [address] 06/02/2011 00:00:00 [id number] [facility] [address] [place] [address] 06/22/2011 00:00:00 [id number] [facility] [address] [place] [address] 09/07/2011 00:00:00 [id number] [facility] [address] [place] [address] 09/07/2011 00:00:00 [id number] [facility] [address] [place] [address] 09/14/2011 00:00:00 [id number] [facility] [address] [place] [address] 07/01/2012 00:00:00 [id number] [facility] [address] [place] [address] 09/14/2011 00:00:00 [id number] [facility] [address] [place] [address] 09/29/2011 00:00:00 [id number] [facility] [address] [place] [address] 10/23/2011 00:00:00 [id number] [facility] [address] [place] [address] 11/20/2011 00:00:00 [id number] [facility] [address] [place] [address] 12/08/2011 00:00:00 [id number] [facility] [address] [place] [address] 12/14/2011 00:00:00 [id number] [facility] [address] [place] [address] 12/30/2011 00:00:00 [id number] [facility] [address] [place] [address] 01/22/2012 00:00:00 [id number] [facility] [address] [place] [address] 01/26/2012 00:00:00 [id number] [facility] [address] [place] [address] 03/29/2012 00:00:00 [id number] [facility] [address] [place] [address] 05/06/2012 00:00:00 [id number] [facility] [address] [place] [address] 06/17/2012 00:00:00 [id number] [facility] [address] [place] [address] 09/27/2012 00:00:00 [id number] [facility] [address] [place] [address] 12/23/2012 00:00:00 [id number] [facility] [address] [place] [address] 05/23/2013 00:00:00 [id number] [facility] [address] [place] [address] 06/21/2013 00:00:00 [id number] [facility] [address] [place] [address] 09/06/2013 00:00:00 [id number] [facility] [address] [place] [address] 09/19/2013 00:00:00 [id number] [facility] [address] [place] [address] 03/14/2014 00:00:00 [id number] [facility] [address] [place] [address] 03/19/2014 00:00:00 [id number] [facility] [address] [place] [address] 05/14/2014 00:00:00 [id number] [facility] [address] [place] [address] 07/06/2014 00:00:00 [id number] [facility] [address] [place] [address] 04/02/2010 00:00:00 [id number] [facility] [address] [place] [address] 07/15/2010 00:00:00 [id number] [facility] [address] [place] [address] 08/01/2010 00:00:00 [id number] [facility] [address] [place] [address] 07/18/2014 00:00:00 [id number] [facility] [address] [place] [address] 07/18/2014 00:00:00 [id number] [facility] [address] [place] [address] 07/04/2014 00:00:00 [id number] [facility] [address] [place] [address] 09/19/2013 00:00:00 [id number] [facility] [address] [place] [address] 10/25/2013 00:00:00 [id number] [facility] [address] [place] [address] 12/19/2013 00:00:00 [id number] [facility] [address] [place] [address] 01/24/2008 00:00:00 [id number] [facility] [address] [place] [address] 07/19/2007 00:00:00 [id number] [facility] [address] [place] [address] 10/30/2008 00:00:00 [id number] [facility] [address] [place] [address] 06/14/2008 00:00:00 [id number] [facility] [address] [place] [address] 07/31/2008 00:00:00 [id number] [facility] [address] [place] [address] 08/24/2008 00:00:00 [id number] [facility] [address] [place] [address] 10/30/2008 00:00:00 [id number] [facility] [address] [place] [address] 12/24/2008 00:00:00 [id number] [facility] [address] [place] [address] 02/11/2009 00:00:00 [id number] [facility] [address] [place] [address] 04/05/2009 00:00:00 [id number] [facility] [address] [place] [address] 04/17/2009 00:00:00 [id number] [facility] [address] [place] [address] 07/24/2009 00:00:00 [id number] [facility] [address] [place] [address] 09/03/2009 00:00:00 [id number] [facility] [address] [place] [address] 10/23/2009 00:00:00 [id number] [facility] [address] [place] [address] 01/10/2010 00:00:00 [id number] [facility] [address] [place] [address] 02/17/2010 00:00:00 [id number] Be Hendricks MD [address] [place] [address] 02/19/2016 10:49:37 02/19/2016 13:31:12 Administration of influenza vaccine 23726357 Z23 Disseminat ed idiopathic skeletal hyperostosis 03608837 M48.10 Pain of mu ltiple joints 73423577 M25.50 Essential hypertension 20114115 I10 Coronary atherosclerosis 551514602 I25.83 Mixed hyperlipidemia 267 468147 E78.2 [id number] Be Hendricks MD [address] [place] [address] [id number] Be Hendricks MD [address] [place] [address] 04/22/2016 14:02:35 04/23/2016 08:41:52 Coronary atherosclerosis 683321073 I25.83 Essential hypertension 52634977 I10 Chronic back pain 080079 002 M54.5 Mixed hyperlipidemia 267 698560 E78.2 Renewal of prescription 178801361 Z76.0 Endocrine/ metabolic screening 273995071 Z13.228 Pain of mu ltiple joints 39259806 M25.50 Disseminat ed idiopathic skeletal hyperostosis 38376136 M48.10 Stented co ronary artery 150424149 Z95.5 Type 2 aydee betes mellitus without complication 426648876 E11.9 [id number] Be Hendricks MD [address] [place] [address] 05/22/2016 12:42:34 05/22/2016 15:03:02 Pain of multiple joints 12530792 M25.50 Arthritis 5754494 M19.90 Pain of joint 71624864 M 25.50 Gouty arthropathy 888289 008 M10.09 Stented co ronary artery 484498595 Z95.5 Disseminat ed idiopathic skeletal hyperostosis 86515471 M48.10 Coronary atherosclerosis 870125835 I25.83 Renewal of prescription 351103481 Z76.0 [id number] Be Hendricks MD [address] [place] [address] 06/23/2016 08:19:59 06/23/2016 09:47:20 Stented coronary artery 642143366 Z95.5 Renewal of prescription 883569227 Z76.0 Coronary atherosclerosis 903324981 I25.83 Pain of mu ltiple joints 51589512 M25.50 Chronic back pain 172913 002 M54.5 Essential hypertension 40252020 I10 Disseminat ed idiopathic skeletal hyperostosis 94758523 M48.10 Hypothyroidism 72910761 E03.9 [id number] Be Hendricks MD [address] [place] [address] 06/30/2016 13:22:51 06/30/2016 14:21:45 Foot eczema 632008067 L30.9 [id number] Be Hendricks MD [address] [place] [address] 07/29/2016 10:42:54 07/29/2016 12:42:49 Pain of multiple joints 97196883 M25.50 Chronic back pain 417147 002 M54.5 Essential hypertension 30195422 I10 General ex amination of patient 970077638 Z00.00 Uncontroll ed type 2 diabetes mellitus 799216667 E11.65 Mixed hyperlipidemia 267 022375 E78.2 Delay when starting to pass urine 2745192 R39.11 Acquired hypothyroidism 407686804 E03.9 Stented co ronary artery 881216493 Z95.5 Severe obesity 998053898 1 9104 E66.01 Disseminat ed idiopathic skeletal hyperostosis 52906896 M48.10 [id number] Be Hendricks MD [address] [place] [address] 08/28/2016 08:46:28 08/28/2016 09:41:41 Pain of multiple joints 17460092 M25.50 Chronic back pain 964027 002 M54.5 Type 2 aydee betes mellitus without complication 013313347 E11.9 Essential hypertension 89390187 I10 Disseminat ed idiopathic skeletal hyperostosis 11208046 M48.10 [id number] Be Hendricks MD [address] [facility] [place] [address] 09/25/2016 09:05:21 09/25/2016 10:18:05 Chronic back pain 364639473 M54.5 Pain of mu ltiple joints 95160500 M25.50 Acquired hypothyroidism 180844189 E03.9 Mixed hyperlipidemia 267 200997 E78.2 Type 2 aydee betes mellitus without complication 108389054 E11.9 Coronary atherosclerosis 032609977 I25.83 Foot eczema 957820033 L3 0.9 Disseminat ed idiopathic skeletal hyperostosis 34842636 M48.10 Eye infection 145955068 H44.095 [id number] Be Hendricks MD [address] [place] [address] 10/26/2016 08:58:07 10/26/2016 10:48:45 Pain of multiple joints 33498868 M25.50 Mixed hyperlipidemia 267 208740 E78.2 Disseminat ed idiopathic skeletal hyperostosis 92256375 M48.10 [id number] Be Hendricks MD [address] [place] [address] 11/24/2016 08:56:12 11/24/2016 11:59:30 Pain of multiple joints 54510033 M25.50 Disseminat ed idiopathic skeletal hyperostosis 87651800 M48.10 Mixed hyperlipidemia 267 773829 E78.2 Foot eczema 804108344 L3 0.9 Coronary atherosclerosis 091718455 I25.83 [id number] Be Hendricks MD [address] [place] [address] 12/25/2016 07:52:48 12/25/2016 09:44:27 Pain of multiple joints 76212751 M25.50 Chronic back pain 581286 002 M54.5 Disseminat ed idiopathic skeletal hyperostosis 73747919 M48.10 Severe obesity 505950439 1 9104 E66.01 Stented co ronary artery 715666563 Z95.5 Type 2 aydee betes mellitus without complication 274468683 E11.9 Renewal of prescription 348808224 Z76.0 Acquired hypothyroidism 863784466 E03.9 [id number] Be Hendricks MD [address] [place] [address] 01/22/2017 11:01:04 01/22/2017 11:45:21 Chest pain 52263662 R07.9 Nausea and vomiting 1693 1999 R11.2 [id number] Be Hendricks MD [address] [place] [address] 01/25/2017 08:27:26 01/25/2017 10:13:41 History of myocardial infarction 121273288 I25.2 Severe obesity 867674227 1 9104 E66.01 Acquired hypothyroidism 761647982 E03.9 Stented co ronary artery 227626708 Z95.5 Type 2 aydee betes mellitus without complication 497053479 E11.9 Body mass index 30+ - obesity 809758056 Z68.39 Gout 53485202 M10.9 [id number] Be Hendricks MD [address] [place] [address] 02/09/2017 10:50:25 02/09/2017 12:13:41 Coronary atherosclerosis 882442931 I25.10 Screening for malignant neoplasm of colon 964740729 Z12.11 [id number] Be Hendricks MD [address] [place] [address] 02/24/2017 10:52:00 02/24/2017 12:18:19 History of myocardial infarction 340376287 I25.2 Severe obesity 889306430 1 9104 E66.01 Acquired hypothyroidism 516676067 E03.9 Type 2 aydee betes mellitus without complication 060106781 E11.9 Coronary atherosclerosis 727884741 I25.10 Essential hypertension 49485319 I10 Disseminat ed idiopathic skeletal hyperostosis 48761011 M48.10 [id number] Be Hendricks MD [address] [place] [address] 03/26/2017 11:03:08 03/26/2017 12:55:14 Disseminated idiopathic skeletal hyperostosis 64847818 M48.10 Renewal of prescription 635249740 Z76.0 Chronic back pain 987153 002 M54.5 Pain of mu ltiple joints 74552280 M25.50 [id number] Be Hendricks MD [address] [place] [address] 04/27/2017 07:50:53 04/27/2017 09:15:38 History of myocardial infarction 617084351 I25.2 Severe obesity 680174656 1 9104 E66.01 Acquired hypothyroidism 905752809 E03.9 Type 2 aydee betes mellitus without complication 494680912 E11.9 Essential hypertension 76506135 I10 Pain of mu ltiple joints 95427036 M25.50 Chronic back pain 838013 002 M54.5 Body mass index 30+ - obesity 245025683 Z68.37 Disseminat ed idiopathic skeletal hyperostosis 92948734 M48.10 [id number] Be Hendricks MD [address] [place] [address] 05/28/2017 07:50:22 05/28/2017 09:35:11 Chronic back pain 688552211 M54.5 Pain of mu ltiple joints 41542581 M25.50 Disseminat ed idiopathic skeletal hyperostosis 40034686 M48.10 [id number] Be Hendricks MD [address] [place] [address] 06/25/2017 08:15:24 06/25/2017 10:14:13 Chronic back pain 880082799 M54.5 Pain of mu ltiple joints 58417249 M25.50 Screening for malignant neoplasm of colon 945666803 Z12.11 Coronary arteriosclerosis 91322983 I25.10 [id number] Be Hendricks MD [address] [place] [address] 07/26/2017 08:23:26 07/26/2017 11:09:55 Pain of multiple joints 94595462 M25.50 Chronic back pain 781853 002 M54.5 Mixed hyperlipidemia 267 434522 E78.2 Dyslipidemia 592636657 E 78.5 [id number] Be Hendricks MD [address] [place] [address] 08/25/2017 09:40:16 08/25/2017 11:37:53 Chronic back pain 668322675 M54.5 Pain of mu ltiple joints 30157223 M25.50 Type 2 aydee betes mellitus without complication 799909648 E11.9 Body mass index 30+ - obesity 309479555 Z68.37 Z68.38 [id number] Be Hendricks MD [address] [place] [address] 09/28/2017 17:16:43 09/28/2017 20:08:25 Arthritis 0072395 M19.90 Pain of joint 01718183 M 25.50 Chronic back pain 666909 002 M54.5 Pain of mu ltiple joints 88445601 M25.50 Angina pectoris 48485817 0 I20.9 Non-neoplastic nevus 195 031565 I78.1 [id number] Be Hendricks MD [address] [place] [address] 10/26/2017 11:16:08 10/26/2017 14:05:21 Pain of multiple joints 72290627 M25.50 Chronic back pain 148448 002 M54.5 Type 2 aydee betes mellitus without complication 238240957 E11.9 [id number] Be Hendricks MD [address] [place] [address] 11/23/2017 08:26:27 11/23/2017 10:32:25 Coronary atherosclerosis 612363476 I25.10 Diabetes mellitus 950285 09 E11.9 Type 2 aydee betes mellitus without complication 128167338 E11.9 Chronic back pain 182398 002 M54.5 Pain of mu ltiple joints 43230496 M25.50 Hyperlipidemia 42052829 E78.2 Essential hypertension 88223703 I10 Delay when starting to pass urine 5429197 R39.11 Acquired hypothyroidism 846456777 E03.9 Viral screening 18771269 4 Z11.59 [id number] Juan Ramon Tai MD [address] [place] [address] 12/29/2017 14:30:11 12/29/2017 17:58:24 Chronic back pain 374670090 G89.29 Type 2 aydee betes mellitus without complication 038983058 E11.9 [id number] Juan Ramon Tai MD [address] [place] [address] 01/26/2018 13:28:20 01/26/2018 14:25:46 Chronic back pain 221462005 G89.29 Type 2 aydee betes mellitus without complication 944969044 E11.9 Coronary atherosclerosis 413594140 I25.10 Pain of mu ltiple joints 07529596 M25.50 Hypothyroidism 66347011 E03.9 Mixed hyperlipidemia 267 472885 E78.2 [id number] Bernice Candelario PA-C [address] [address] 04/03/2022 08:21:57 04/03/2022 09:28:20 Anticoagulant therapy 862099847 Z79.01 Falling injury 306903528 W19.XXXA discussed signs of infection Injury of head 16850765 S09.90XA -new. Will get [place] [id number] LOREN Yoon [address] [address] 07/08/2023 12:44:13 07/08/2023 13:12:02 Long-term drug therapy 357320038 Z79.899 chronic conditions are stable. Herpes zoster 9217971 B0 2.9 [id number] Bernice Pisano PA-C [address] [address] 07/27/2023 09:26:23 07/27/2023 09:56:01 Adult health examination 465155117 Z00.00 Depression screening 171 387571 Z13.31 A depression screening was completed via a standardiz ed screening tool. 5 minutes were spent discussing depression screening results and risk factors. scored 3. Pt is on paxil. Examinatio n of blood pressure 935851703 Z01.30 Diet education 39448615 Z71.3 Counseling 141457877 Z71 .82 Exercise counseling . Patient encouraged to exercise 30 minutes 5 days a week. At [facility] ed risk for falls 240789371 Z91.81 STEADI FAST screening score of __10___. went over fall risks with patient Advance care planning 71 0843664 Z71.89 Finding of body mass index 047012637 E66.9 Ex-smoker 9846342 Z87.89 1 Pt is not smoking. Acquired hypothyroidism 209201071 E03.9 Pt had thyroid removed due to nodule and enlarge thyroid. Coronary atherosclerosis 715341082 I25.[address] Phillips. He had recent stress test. Dyslipidemia 376717169 E 78.5 we will get lipids in office. Disseminat ed idiopathic skeletal hyperostosis 86291016 M48.10 Pt is on pain meds. Essential hypertension 25204488 I10 stable. History of myocardial infarction 692707916 I25.[address] phillips. Mixed hyperlipidemia 267 429885 E78.2 Pain of mu ltiple joints 23997936 M25.50 Severe obesity 509170220 1 9104 E66.01 Stented co ronary artery 613032257 Z95.[address] phillips. Pt has 5 stents. states no chest pain. Type 2 aydee betes mellitus without complication 790298811 E11.9 went over to check feet daily. we will get A1c. BS per pt are around 120-130s. Screening for malignant neoplasm of colon 496350293 Z12.11 Pt states he july of last year at [facility]. Screening for malignant neoplasm of prostate 717906436 Z12.5 Taking med ication for chronic disease 1385329509 16150 Z79.899 Health Concerns Section Related Observation LastModified by Organization Detai ls LastModified Time None Recorded Concern Status LastModified by Organization Details LastModified Time None Recorded Advance Directives Directive None Recorded Payers Insurance Date Sequence Insurance Name Policy Number Policy Purdy Covered Member ID Purdy Member ID Guarantor Name 01/25/2024 1 [place]MEDIC[place]/A DVANTAGE - HMO) [id number] Keaton E Edison [id number] Keaton Edison 04/03/2022 1 [employer] (MEDICARE REPLACEMENT/A DVANTAGE - PPO) Keaton Tatyana Aliya [id number] Keaton Pisano Notes Date Note Type Note Provider Name and Address Organization Details Recorded Time 12/29/2017 text/html Coronary Artery Disease F/UReported bypatient.Severity:no chest discomfort with daily activities; has not needed to use Nitroglycerin; no change since last visit Context:non-smoker Associated Symptoms:no chest pain; no neck pain; no left arm pain; no dyspnea with exertion; no sweating; no nausea; no stressDiabetes F/UReported bypatient.Context:nor mal range of home blood sugars (in the low 100s); seeing eye doctor regularly; checking feet regularly Associated Symptoms:no weight gain; no weight loss; no dizziness; no sweats; no headaches; no confusion; no increased thirst; no increased appetite; no increased urination; no blurred vision; no numbness of feet; no calluses on feetMusculoskeletal PainReported bypatient.Location:th oracic spine; lumbar spine Quality:dull Severity:same; pain level with meds 3/10 Duration:present for >12 months Timing:intermittent Context:overuse; unusual activity Alleviating factors:rest Aggravating factors:movement/posi tioning ADL (Activities of Daily Living)improve with medication doing ok neck and back pain duration 10 yrs no injurynocTuria poor stream and edbs log 120-140 Juan Ramon Tai LES [facility] - [facility] 02/03/2018 10:57:23 01/26/2018 text/html Coronary Artery Disease F/UReported bypatient.Severity:no chest discomfort with daily activities; has not needed to use Nitroglycerin; no change since last visit Context:non-smoker Associated Symptoms:no chest pain; no neck pain; no left arm pain; no dyspnea with exertion; no sweating; no nausea; no stressDiabetes F/UReported bypatient.Context:nor mal range of home blood sugars (in the low 100s); seeing eye doctor regularly; checking feet regularly Associated Symptoms:no weight gain; no weight loss; no dizziness; no sweats; no headaches; no confusion; no increased thirst; no increased appetite; no increased urination; no blurred vision; no numbness of feet; no calluses on feetMusculoskeletal PainReported bypatient.Location:th oracic spine; lumbar spine Quality:dull Severity:same; pain level with meds 3/10 Duration:present for >12 months Timing:intermittent Context:overuse; unusual activity Alleviating factors:rest Aggravating factors:movement/posi tioning ADL (Activities of Daily Living)improve with medication neck and back pain over 10 yearsdiabetes mellitus type IIdc dx disc diseasetoday ok Sammie camarenaLES - [facility] 01/26/2018 15:09:42 04/03/2022 text/html pt states last n ight he fell and hit his head, pt denies any change in vision, headaches, or nausea/vomiting. pt states his neck and shoulder hurt more than his headPt states his check bone is a little sore.Pt denies loc. Bernice Morelos DeAtley, PA-C [address], [place], [address], [place] - [facility] 04/03/2022 09:10:30 07/08/2023 text/html Pt started to ge t pain a week ago. He states rash appeared yesterday. No N/V/F/D. rash is on right side. area hurts and vera if anything touches it. Bernice Pisano PA-C [address], [place], [address], [facility] - [facility] 07/08/2023 13:11:07 07/27/2023 text/html Medicare Annual Wellness VisitReported bypatient.Diet and Nutrition:healthy diet Fracture Risk:no history of fractures; no recent explained fracture; no sudden unexplained fractures; no previous musculoskeletal injuries Physical Activity:exercises on a regular basis; recent increase in physical activity; good physical condition Depression Risk:never feels sad, empty, or tearful; no loss of interest in activities; no significant changes in weight; no sleep disturbances or insomnia; no agitation; no loss of energy; no feelings of worthlessness or guilt; no thoughts of suicide; no history of depression; no history of mood disorders Orientation:no disorientation to time; no disorientation to date; no disorientation to place Concentration and Memory:no decreased concentrating ability; no memory lapses or loss; does not forget words Speech/Motor difficulties:no speech difficulties; no difficulty expressing formulated concepts; no difficulty with fine manipulative tasks; no difficulty writing/copying; no slowed reaction time; does not knock things over when trying to pick them up Hearing:no loss of hearing Vision:no vision problems Activities of Daily Living:able to bathe with limited or no assistance; able to contol urination and bowels; able to dress with limited or no assistance; able to feed self with limited or no assistance; able to get out of chair or bed with limited or no assistance; able to groom with limited or no assistance; able to toilet with limited or no assistance Instrumental Activities of Daily Living:able to do house work with limited or no assistance; able to grocery shop with limited or no assistance; able to manage medications with limited or no assistance; able to manage money with limited or no assistance; able to prepare meals with limited or no assistance; able to use the phone with limited or no assistance Falls Risk Assessment:no frequent falls while walking; no fall in the past year; no fall since last visit; no dizziness/vertigo Home Safety:no unsafe bree hazzards; no unsafe stairs; no unsafe gas appliances; working smoke/CO detectors; wears protective head gear for biking/high velocity; use of seatbelts; practicing 'safer sex'; no vision or hearing loss while driving; no fire arms; has hand bars in the bathroom/shower; good lighting in the home patient is here for medicare annual well visit. Bernice Pisano PA-C [facility] [address], [place], [address], [facility] - [facility] 07/27/2023 09:45:47
--- OUTSIDE RECORDS SUMMARY | 2024-11-02 13:50 | XMS_ITS | CCD ---
Author Organization Unknown Care Team Providers Care Classified Advertising Manager Name Role Phone Unavailable Primary Care Provider Unavailabl e Unavailable Chronic Care Management Unavaila ble Summary Purpose DataExchange Insurance Providers Payer name Policy type / Coverage type Covered republican ID Effective Begin Date Effective End Date [facility] [id number] Unknown Unknown Family History Family History data not found Medication Administered No Medication Administered data Reason For Visit No Reason For Visit data Medical Equipment No Medical Equipment data Advance Directives No Advance Directive data
--- OUTSIDE RECORDS SUMMARY | 2024-11-02 13:50 | XMS_ITS | CCD ---
Author Organization Unknown Care Team Providers Care Shoder Filler Name Role Phone Unavailable Primary Care Provider Unavailabl e Unavailable Chronic Care Management Unavaila ble Summary Purpose DataExchange Insurance Providers Payer name Policy type / Coverage type Covered republican ID Effective Begin Date Effective End Date [facility] [id number] Unknown Unknown Family History Family History data not found Medication Administered No Medication Administered data Reason For Visit No Reason For Visit data Medical Equipment No Medical Equipment data Advance Directives No Advance Directive data
[2024-11-03 05:12] LABS: Hepatitis B Surface Antigen Negative (Negative)
== END 2024-11-01 23:59 | disposition home or self-care (01) ==
LOC: LAB.DROPOF 11-02 12:48
PROVIDERS: PCP Family Medicine; Visit Provider Family Medicine
DX: E03.9 Hypothyroidism, unspecified (principal); E11.9 Type 2 diabetes mellitus without complications; I10 Essential (primary) hypertension; E66.9 Obesity, unspecified; E04.9 Nontoxic goiter, unspecified; Z12.5 Encounter for screening for malignant neoplasm of prostate; Z11.59 Encounter for screening for other viral diseases
CPT/HCPCS: 80053; 80061; 80074; 83036; 84443; 87340; 87389; G0103